=== PATIENT | female | born 1940 | race Caucasian/White ===

== ENCOUNTER → 2017-06-17 | Outpatient (CLI) | payer MEDICARE ==
[2017-06-17 11:02] LABS: Basophils % (A) 1 %; CH 30.4; CHCM 33.5; Eosinophils # (A) 0.1 k/uL (0-0.7); Eosinophils % (A) 2 %; HCT 45.5 % (34.0-46.0); HDW 2.89; HGB 14.6 gm/dL (11.4-16.0); Luc # (Auto) 0.08; Luc % (Auto) 2; Lymphocytes # (A) 1.7 k/uL (1.0-4.8); Lymphocytes % (A) 33 %; MCH 29.2 pg (25.0-35.0); MCV 91.1 fL (80.0-100.0); Mean Platelet Volume 6.9; Monocytes # (A) 0.3 k/uL (0-1.0); Monocytes % (A) 6 %; Neutrophils # (A) 2.9 k/uL (1.3-7.7); Neutrophils % (A) 57 %; RDW 13.6 % (11.5-15.5); WBC (Perox) 4.93
[2017-06-17 11:07] LABS: ALT 32 U/L (9-52); AST 24 U/L (14-36); Alkaline Phosphatase 143 U/L (38-126); Amylase 86 U/L (30-110); Anion Gap 12 mmol/L; Bilirubin, Delta 0.2 mg/dL (0.0-0.2); Blood Urea Nitrogen 20 mg/dL (7-17); Calcium 9.4 mg/dL (8.4-10.2); Carbon Dioxide 31 mmol/L (22-30); Chloride 100 mmol/L (98-107); Cholesterol 160 mg/dL (<200); Glucose 111 mg/dL (74-99); HDL Cholesterol 48 mg/dL (40-60); Non-African American GFR(MDRD) 54 (>60 ml/min/1.73 sqM); Potassium 3.4 mmol/L (3.5-5.1); Sodium 143 mmol/L (137-145); Total Bilirubin 0.6 mg/dL (0.2-1.3); Total Protein 7.2 g/dL (6.3-8.2)
[2017-06-17 14:14] LABS: Erythrocyte Sedimentation Rate 75 mm/hr (0-20)
== END | disposition home or self-care (01) ==
LOC: LABWHC1 10:26
PROVIDERS: ATTEND Physician Assistant
DX: Z00.00 Encounter for general adult medical examination without abnormal findings (principal); R10.9 Unspecified abdominal pain
CPT/HCPCS: 36415; 80053; 80061; 82150; 82248; 82306; 83690; 84443; 85025; 85652

== ENCOUNTER 2018-01-30 21:45 | Emergency (ER) | payer MEDICARE ==
[2018-01-30 22:31] LABS: Appearance,Urine Turbid (Clear); Bacteria,Urine Moderate /hpf; Bilirubin,Urine Negative (Negative); Blood,Urine Large (Negative); Color,Urine Dark Brown; Glucose,Urine (UA) 2+ (Negative); Ketones,Urine Trace (Negative); Leukocyte Esterase,Urine Large (Negative); Mucus,Urine Few /hpf; Nitrite,Urine Positive (Negative); Protein,Urine 3+ (Negative); RBC,Urine >182 /hpf (0-5); Squamous Epithelial Cell,Urine 13 /hpf (0-4); Urobilinogen,Urine <2.0 mg/dL (<2.0); WBC,Urine >182 /hpf (0-5)
--- NOTE | 2018-01-30 22:48 | ED ---
Female Urogenital HPI - General Chief complaint: Urogenital Stated complaint: Urogenital Time Seen by Provider: 01/30/18 22:12 Source: patient Mode of arrival: ambulatory Limitations: no limitations - History of Present Illness Initial comments: Patient is a 77-year-old female presenting for dysuria. She states that she started having burning with urination on January 26 and was prescribed Macrobid. She denies any abdominal pain or fevers/chills or nausea/vomiting/diarrhea. However, she started having more dysuria today and decided to come into the hospital for further evaluation. She states that she has been compliant with the Macrobid - Related Data Home Medications Medication Instructions Recorded Confirmed Amitriptyline HCl [Elavil] 75 mg PO HS 07/06/14 01/30/18 Bisoprolol-Hctz 10-6.25 mg [Ziac 2 tab PO DAILY 07/06/14 01/30/18 10-6.25 MG] Insulin Aspart [NovoLOG] 0 unit SQ DAILY PRN 07/06/14 01/30/18 Lansoprazole 30 mg PO DAILY 07/06/14 01/30/18 Insulin Glargine,Hum.rec.anlog 0 unit SQ DAILY PRN 11/15/15 01/30/18 [Lantus Solostar] Atorvastatin [Lipitor] 20 mg PO HS 01/30/18 01/30/18 Biotin 5,000 mcg PO DAILY 01/30/18 01/30/18 Calcium Carbonate/Vitamin D3 1 tab PO BID 01/30/18 01/30/18 [Calcium 600-Vit D3 400 Caplet] Cholecalciferol [Vitamin D3] 1,000 unit PO DAILY 01/30/18 01/30/18 Diphenoxylate HCl/Atropine 1 tab PO QID PRN 01/30/18 01/30/18 [Lomotil 2.5-0.025 mg Tablet] Fluticasone Nasal [place] [Flonase 1 - 2 spray EA NOSTRIL DAILY PRN 01/30/1801/30 Nasal [place]] Gabapentin [Neurontin] 100 mg PO DAILY 01/30/18 01/30/18 Multivitamins, Thera [Multivitamin 1 tab PO DAILY 01/30/18 01/30/18 (formulary)] Nitrofurantoin Monohyd/M-Cryst 100 mg PO Q12HR 01/30/18 01/30/18 [Macrobid] Olopatadine HCl [Patanol] 1 drop OP BID 01/30/18 01/30/18 Previous Rx's Medication Instructions Recorded Phenazopyridine [Pyridium] 200 mg PO TID 3 Days #10 tablet 01/30/18 Sulfamethox-Tmp 800-160Mg [Bactrim 1 tab PO Q12HR 7 Days #14 tab 01/30/18 DS 800-160 mg] Allergies Allergy/AdvReac Type Severity Reaction Status Date / Time No Known Allergies Allergy Verified 01/30/18 22:25 Review of Systems ROS Statement: Those systems with pertinent positive or pertinent negative responses have been documented in the HPI. Constitutional: Negative for chills, fatigue and fever. HENT: Negative for congestion. Respiratory: Negative for chest tightness, shortness of breath and wheezing. Negative for cough Cardiovascular: Negative for chest pain and palpitations. Gastrointestinal: Negative for abdominal pain. Negative for abdominal distention , diarrhea, nausea and vomiting. Genitourinary: Positive for dysuria. Musculoskeletal: Negative for back pain, neck pain and neck stiffness. Skin: Negative for color change. Neurological: Negative for dizziness, speech difficulty, weakness and light- headedness. Psychiatric/Behavioral: Negative for agitation and confusion. The patient is not nervous/anxious. ROS Other: All systems not noted in ROS Statement are negative. Past Medical History Past Medical History: Diabetes Mellitus, GERD/Reflux, Hyperlipidemia, Hypertension, Sleep Apnea/CPAP/BIPAP History of Any Multi-Drug Resistant Organisms: None Reported Past Surgical History: Bariatric Surgery Additional Past Surgical History / Comment(s): bariatric sleeve procedure, rt rotator cuff, tummy tuck Past Anesthesia/Blood Transfusion Reactions: Postoperative Nausea & Vomiting ( PONV) Smoking Status: Never smoker Past Alcohol Use History: None Reported Past Drug Use History: None Reported General Exam - General Exam Comments Initial Comments: Constitutional: Pt is oriented to person, place, and time. Pt appears well- developed and well-nourished. No distress. HENT: Head: Normocephalic and atraumatic. Eyes: EOM are normal. Neck: Normal range of motion. Neck supple. Cardiovascular: Normal rate, regular rhythm, S1 normal, S2 normal and normal heart sounds. Exam reveals no gallop and no friction rub. No murmur heard. Pulmonary/Chest: Effort normal and breath sounds normal. No tachypnea and no bradypnea. No respiratory distress. No wheezes or rales noted. Abdominal: Soft. Bowel sounds are normal. Pt exhibits no shifting dullness, no distension, no pulsatile liver, no fluid wave, no abdominal bruit and no ascites. There is no tenderness. There is no rigidity, no rebound, no guarding, no tenderness at McBurney's point and negative Morelos's sign. Musculoskeletal: Normal range of motion. Neurological: Pt is alert and oriented to person, place, and time. No cranial nerve deficit. Skin: Skin is warm and dry. No rash noted. Pt is not diaphoretic. No erythema. No pallor. Psychiatric: Pt has a normal mood and affect. Pt behavior is normal. Thought content normal. Limitations: no limitations Course Vital Signs 01/30/18 22:05 Temperature 98.5 F Pulse Rate 90 Respiratory 16 Rate Blood Pressure 140/84 O2 Sat by Pulse 94 L Oximetry Medical Decision Making - Medical Decision Making Laboratory studies showed that there is no evidence of leukocytosis and electrolytes revealed that potassium was low at 3.0 and therefore was replaced orally. Urinalysis was consistent with a urinary tract infection and therefore the patient was given 1000 mg of Rocephin. Additionally, patient was given a 7 day course of Bactrim as well as Pyridium. Patient was advised to follow-up with her PCP in 1-2 days which she was agreeable to. Labs also showed the renal function was preserved. - Lab Data Result diagrams: 01/30/18 23:00 01/30/18 23:00 Lab Results 01/30/18 01/30/18 01/30/18 Range/Units 22:17 23:00 23:00 WBC 9.2 (3.8-10.6) k/uL RBC 5.11 (3.80-5.40) m/uL Hgb 14.3 (11.4-16.0) gm/dL Hct 42.8 (34.0-46.0) % MCV 83.8 (80.0-100.0) fL MCH 27.9 (25.0-35.0) pg MCHC 33.3 (31.0-37.0) g/dL RDW 13.7 (11.5-15.5) % Plt Count 248 (150-450) k/uL Neutrophils % 73 % Lymphocytes % 18 % Monocytes % 5 % Eosinophils % 3 % Basophils % 0 % Neutrophils # 6.7 (1.3-7.7) k/uL Lymphocytes # 1.6 (1.0-4.8) k/uL Monocytes # 0.5 (0-1.0) k/uL Eosinophils # 0.2 (0-0.7) k/uL Basophils # 0.0 (0-0.2) k/uL Sodium 143 (137-145) mmol/L Potassium 3.0 L* (3.5-5.1) mmol/L Chloride 98 (98-107) mmol/L Carbon Dioxide 31 H (22-30) mmol/L Anion Gap 14 mmol/L BUN 14 (7-17) mg/dL Creatinine 0.91 (0.52-1.04) mg/dL Est GFR (CKD-EPI)AfAm 71 (>60 ml/min/1.73 sqM) Est GFR (CKD-EPI)NonAf 61 (>60 ml/min/1.73 sqM) Glucose 114 H (74-99) mg/dL Calcium 8.9 (8.4-10.2) mg/dL Urine Color Dark Brown Urine Appearance Turbid H (Clear) Urine pH 6.0 (5.0-8.0) Ur Specific [place] 1.024 (1.001-1.035) Urine Protein 3+ H (Negative) Urine Glucose (UA) 2+ H (Negative) Urine Ketones Trace H (Negative) Urine Blood Large H (Negative) Urine Nitrite Positive H (Negative) Urine Bilirubin Negative (Negative) Urine Urobilinogen <2.0 (<2.0) mg/dL Ur Leukocyte Esterase Large H (Negative) Urine RBC >182 H (0-5) /hpf Urine WBC >182 H (0-5) /hpf Urine WBC Clumps Many H (None) /hpf Ur Squamous Epith Cells 13 H (0-4) /hpf Urine Bacteria Moderate H (None) /hpf Urine Mucus Few H (None) /hpf Disposition Clinical Impression: Urinary tract infection, Hematuria Disposition: HOME SELF-CARE Condition: Good Instructions: Urinary Tract Infection in Women (ED) Prescriptions: Phenazopyridine [Pyridium] 200 mg PO TID 3 Days #10 tablet Sulfamethox-Tmp 800-160Mg [Bactrim DS 800-160 mg] 1 tab PO Q12HR 7 Days #14 tab Is patient prescribed a controlled substance at d/c from ED?: No Referrals: August Harrison MD [Primary Care Provider] - 1-2 days Time of Disposition: 23:57
[2018-01-30] MEDS ORDERED: cefTRIAXone IN SWFI 1,000 MG/10 ML SYRINGE IVP ONE (23:00)
[2018-01-30 23:07] LABS: Specific Gravity,Urine 1.024 (1.001-1.035)
[2018-01-30 23:13] LABS: Basophils % (A) 0 %; Eosinophils # (A) 0.2 k/uL (0-0.7); Eosinophils % (A) 3 %; HCT 42.8 % (34.0-46.0); HGB 14.3 gm/dL (11.4-16.0); Lymphocytes # (A) 1.6 k/uL (1.0-4.8); Lymphocytes % (A) 18 %; MCH 27.9 pg (25.0-35.0); MCHC 33.3 g/dL (31.0-37.0); MCV 83.8 fL (80.0-100.0); Mean Platelet Volume 6.3; Monocytes # (A) 0.5 k/uL (0-1.0); Monocytes % (A) 5 %; Neutrophils # (A) 6.7 k/uL (1.3-7.7); Neutrophils % (A) 73 %; Platelet Count 248 k/uL (150-450); RBC 5.11 m/uL (3.80-5.40); RDW 13.7 % (11.5-15.5); WBC 9.2 k/uL (3.8-10.6)
[2018-01-30 23:21] LABS: Calcium 8.9 mg/dL (8.4-10.2)
[2018-01-30] MEDS ORDERED: POTASSIUM CHLORIDE ER 20 MEQ TAB.ER PO STA (23:35)
[2018-01-30] MEDS ORDERED: KETOROLAC 30 MG/ML 1 ML VIAL IVP STA (23:51)
[2018-01-30] MEDS ORDERED: PHENAZOPYRIDINE 200 MG TAB PO STA (23:51)
[2018-01-31 00:23] VITALS: BP 170/88; PULSE 70; RESP 18; TEMP 98.8
== END 2018-01-31 00:23 | disposition home or self-care (01) ==
LOC: EC 21:45
DX: N39.0 Urinary tract infection, site not specified (principal); E87.6 Hypokalemia; E11.9 Type 2 diabetes mellitus without complications; K21.9 Gastro-esophageal reflux disease without esophagitis; E78.5 Hyperlipidemia, unspecified; I10 Essential (primary) hypertension; G47.30 Sleep apnea, unspecified; Z99.89 Dependence on other enabling machines and devices; Z79.4 Long term (current) use of insulin; Z79.899 Other long term (current) drug therapy; Z53.8 Procedure and treatment not carried out for other reasons
CPT/HCPCS: 36415; 80048; 85025; 81001; 87086; 99283; 96374; 96375; J0696; J1885; 87077; 87186

== ENCOUNTER → 2018-03-03 | Outpatient (CLI) | payer MEDICARE ==
--- NOTE | 2018-03-04 11:19 | MM ---
Reason for exam: screening (asymptomatic). Last mammogram was performed 2 years and 5 months ago. History: Patient is postmenopausal. Family history of breast cancer in paternal aunt at age 60. Took estrogen for 21 years beginning at age 45. Took progesterone for 21 years beginning at age 45. Physical Findings: A clinical breast exam by your physician is recommended on an annual basis and results should be correlated with mammographic findings. MG 3D Screening Mammo W/Cad Bilateral CC and MLO view(s) were taken. Prior study comparison: October 05, 2015, bilateral MG 3d diag mammo w/cad [facility]. July 28, 2014, bilateral MG diagnostic mammo w CAD [facility]. There are scattered fibroglandular densities. Finding: There are typically benign round, regional calcifications in the anterior position of the left breast. There is a chronic nodularity in the right upper aspect. There is no discrete abnormality. ASSESSMENT: Benign, BI-RAD 2 RECOMMENDATION: Routine screening mammogram of both breasts in 1 year.
== END | disposition home or self-care (01) ==
LOC: RADMAMWWP 09:46
PROVIDERS: ATTEND Family Medicine
DX: Z12.31 Encounter for screening mammogram for malignant neoplasm of breast (principal)
CPT/HCPCS: 77063; 77067

== ENCOUNTER → 2019-01-09 | Outpatient (CLI) | payer MEDICARE ==
--- NOTE | 2019-01-09 18:54 | MR ---
EXAMINATION TYPE: MR brain wo con DATE OF EXAM: 01/09/2019 COMPARISON: NONE HISTORY: Vestibular neuronitis, bilateral TECHNIQUE: Multiplanar, multisequence images of the brain and brainstem is performed without contrast. FINDINGS: Diffusion weighted images demonstrate no evidence of a recent infarct or other diffusion ab normality. There is no extra-axial fluid collection. The ventricular system and cisternal spaces are symmetrically prominent compatible with mild degree age-related volume loss. Scattered T2/FLAIR hype rintense punctate foci are seen within the subcortical and periventricular white matter, mild burden. Midline structures demonstrate normal morphology. No gross masses seen at the cerebellar pontine ang les. The craniocervical junction appears within normal limits. Post contrast images demonstrate no a bnormal enhancement. The dural venous sinuses appear patent. The visualized sinuses demonstrate mild mucosal thickening in the ethmoid sinuses and scant fluid in the sphenoid sinus. Scant mucosal thicke diane is also seen within the posterior left mastoid air cells. Remaining paranasal sinuses and mastoi d air cells are well aerated. IMPRESSION: 1. No acute infarct, midline shift or mass effect. Given the patient's symptoms MR IAC with con is re commended. No gross evidence of cerebellar pontine angle mass. 2. Mild burden nonspecific white matter change, likely on the basis of chronic microangiopathy. 3. Mild paranasal sinus disease.
== END ==
LOC: RADMRIMAIN 14:02
PROVIDERS: ATTEND Family Medicine
DX: R90.89 Other abnormal findings on diagnostic imaging of central nervous system (principal)
CPT/HCPCS: 70551

== ENCOUNTER → 2019-05-06 | Outpatient (CLI) | payer MEDICARE ==
--- NOTE | 2019-05-06 14:25 | MM ---
Reason for exam: screening (asymptomatic). Last mammogram was performed 1 year and 2 months ago. History: Patient is postmenopausal. Family history of breast cancer in paternal aunt at age 60 and breast cancer in sister. Took estrogen for 21 years beginning at age 45. Took progesterone for 21 years beginning at age 45. Physical Findings: A clinical breast exam by your physician is recommended on an annual basis and results should be correlated with mammographic findings. MG 3D Screening Mammo W/Cad Bilateral CC and MLO view(s) were taken. Prior study comparison: March 03, 2018, bilateral MG 3d screening mammo w/cad. October 05, 2015, bilateral MG 3d diag mammo w/cad [facility]. The breast tissue is heterogeneously dense. This may lower the sensitivity of mammography. There are benign appearing round calcifications in the left breast. There is no discrete abnormality. ASSESSMENT: Benign, BI-RAD 2 RECOMMENDATION: Routine screening mammogram of both breasts in 1 year.
== END | disposition home or self-care (01) ==
LOC: RADMAMWWP 10:48
PROVIDERS: ATTEND Family Medicine
DX: Z12.31 Encounter for screening mammogram for malignant neoplasm of breast (principal)
CPT/HCPCS: 77063; 77067

== ENCOUNTER → 2019-11-05 | Outpatient (CLI) | payer MEDICARE ==
[2019-11-05 23:50] LABS: African American GFR (CKD) 62.5 (60.0-200.0); Anion Gap 9.1 mmol/L (4.00-12.00); Calcium 9.6 mg/dL (8.7-10.3); Carbon Dioxide 33.9 mmol/L (21.6-31.8); Chol/HDL Ratio 2.83; LDL Cholesterol,Calculated 53.6 mg/dL (0.0-131.0); Non-African American GFR(CKD) 53.9 (60.0-200.0); Potassium 3.4 mmol/L (3.5-5.5); VLDL Calculation 41.4 mg/dL (5.00-40.00)
== END | disposition home or self-care (01) ==
LOC: LABWHC1 15:53
PROVIDERS: ATTEND Internal Medicine
DX: E11.65 Type 2 diabetes mellitus with hyperglycemia (principal)
CPT/HCPCS: 36415; 80048; 80061

== ENCOUNTER → 2020-01-28 | Outpatient (CLI) | payer MEDICARE ==
--- NOTE | 2020-01-28 10:37 | MR ---
EXAMINATION TYPE: MR shoulder LT wo con DATE OF EXAM: 01/28/2020 COMPARISON: 01/12/2020 HISTORY: L shoulder pain TECHNIQUE: Multiplanar, multisequence imaging of the left shoulder is performed without contrast. FINDINGS: Rotator Cuff: There is a complete through thickness tear of the supraspinatus tendon with retraction near the level the AC joint. There is a partial through thickness tear involving the anterior fibers at the insertion of the infraspinatus tendon measuring approximately 4 mm. Subscapularis tendon appears intact. Acromioclavicular Joint: There is hypertrophic arthropathy of the AC joint. This does result in some mass effect upon the supraspinatus muscle and musculotendinous junction. Glenohumeral Joint: There is a tiny joint effusion. Motion artifact limits assessment of the glenohum eral ligaments. Labrum: Artifact limits assessment of the labrum. There are grossly appear to be intact by non arthro gram technique. Biceps Tendon: The long head of biceps is in normal location within bicipital groove. In the intracap sular portion biceps tendon demonstrates areas of increased signal likely in the basis of tendinosis. Bone marrow signal: No focal abnormal marrow signal is appreciated. Other: There is muscular atrophy correlate clinically. IMPRESSION: Exam limited by motion artifact. 1. Complete through thickness tear of the supraspinatus tendon with retraction to the level the AC marco antonio int. 2. Partial through thickness tear insertion anterior fibers infraspinatus tendon with no retraction. 3. AC joint arthropathy.
== END | disposition home or self-care (01) ==
LOC: RADMRIMAIN 08:56
PROVIDERS: ATTEND Orthopaedic Surgery
DX: M75.122 Complete rotator cuff tear or rupture of left shoulder, not specified as traumatic (principal); S46.812A Strain of other muscles, fascia and tendons at shoulder and upper arm level, left arm, initial encounter; M19.012 Primary osteoarthritis, left shoulder

== ENCOUNTER 2020-10-18 07:24 | Emergency (ER) | payer MEDICARE ==
--- NOTE | 2020-10-18 07:45 | ED ---
General Adult HPI - General Chief complaint: Abdominal Pain Stated complaint: L Flank Pain Time Seen by Provider: 10/18/20 07:27 Source: patient Mode of arrival: ambulatory Limitations: no limitations - History of Present Illness Initial comments: Dictation was produced using [employer] dictation software. please excuse any grammatical, word or spelling errors. This patient was cared for during a federal and state declared state of emergency secondary to Covid 19 Chief Complaint: 80-year-old female presents with left abdominal pain History of Present Illness: Is 80-year-old female she has past medical history of bariatric surgery, diabetes, dyslipidemia hypertension. Patient states that over the last couple days she's been having left lower abdominal pain. Patient has a history of diverticulitis. She states that the pain is mild. She states it's episodic in nature lasting from 1-2 hours. Should have maybe 1 or 2 episodes a day. She is never experienced pain like this before. Denies any nausea vomiting. No diarrhea. No blood in the stool. Has any fever, chills or night sweats. Patient is here in emergency department because they are going to a trip in [place] and she wanted to make sure that she was medically okay before she left for vacation. She denies any constitutional symptoms. Denies any exacerbating or mitigating factors. No numbness and paresthesias to the lower extremities. The ROS documented in this emergency department record has been reviewed and confirmed by me. Those systems with pertinent positive or negative responses have been documented in the HPI. All other systems are other negative and/or noncontributory. PHYSICAL EXAM: General Impression: Alert and oriented x3, not in acute distress HEENT: Normocephalic atraumatic, extra-ocular movements intact, pupils equal and reactive to light bilaterally, mucous membranes moist. Cardiovascular: Heart regular rate and rhythm Chest: Able to complete full sentences, no retractions, no tachypnea Abdomen: abdomen soft, non-tender, non-distended, no organomegaly Musculoskeletal: Pulses present and equal in all extremities, no peripheral edema Motor: no focal deficits noted Neurological: CN II-XII grossly intact, no focal motor or sensory deficits noted Skin: Intact with no visualized rashes Psych: Normal affect and mood ED course: 80-year-old female presents with episodic mild left abdominal pain for the last 2-3 days. Signs upon arrival are within acceptable limits. Patient has history of bariatric surgery. Chart review was performed. She had a computed tomography scan of the abdomen and pelvis performed in 2017. There is evidence of a possible left kidney cyst and may be some subcutaneous inflammation over the surgical site at that time. Physical examination is benign. Patient's HPI and physical examination does not suggest a surgical abdomen. Laboratory evaluation obtained. CBC, metabolic panel is unremarkable. Urinalysis shows 20 white blood cells. Abdominal x-ray shows mild stool burden. Laboratory results and imaging tests were discussed with patient. She did admit that she has had some mild urinary symptoms including urinary frequency, urgency and dysuria. A chin symptoms likely secondary to cystitis could also be possible that her symptoms are secondary to constipation. She's been having regular bowel movements and symptoms are more likely secondary to cystitis. Patient had a UTI performed back in 2018 positive for Klebsiella pneumonia. It had broad sensitivity. Patient will be prescribed Keflex. Patient is agreeable to plan. She is told to expect a phone call if for some reason her sensitivities require she would need to have her antibiotics change. - Related Data Home Medications Medication Instructions Recorded Confirmed Amitriptyline HCl [Elavil] 75 mg PO HS 07/06/14 01/30/18 Bisoprolol-Hctz 10-6.25 mg [Ziac 2 tab PO DAILY 07/06/14 01/30/18 10-6.25 MG] INSULIN ASPART (NovoLOG) [NovoLOG] 0 unit SQ DAILY PRN 07/06/14 01/30/18 Lansoprazole 30 mg PO DAILY 07/06/14 01/30/18 Insulin Glargine,Hum.rec.anlog 0 unit SQ DAILY PRN 11/15/15 01/30/18 [Lantus Solostar] Atorvastatin [Lipitor] 20 mg PO HS 01/30/18 01/30/18 Biotin 5,000 mcg PO DAILY 01/30/18 01/30/18 Calcium Carbonate/Vitamin D3 1 tab PO BID 01/30/18 01/30/18 [Calcium 600-Vit D3 400 Caplet] Cholecalciferol [Vitamin D3] 1,000 unit PO DAILY 01/30/18 01/30/18 Diphenoxylate HCl/Atropine 1 tab PO QID PRN 01/30/18 01/30/18 [Lomotil 2.5-0.025 mg Tablet] Fluticasone Nasal [place] [Flonase 1 - 2 spray EA NOSTRIL DAILY PRN 01/30/18 01/30/18 Nasal [place]] Gabapentin [Neurontin] 100 mg PO DAILY 01/30/18 01/30/18 Multivitamins, Thera [Multivitamin 1 tab PO DAILY 01/30/18 01/30/18 (formulary)] Nitrofurantoin Monohyd/M-Cryst 100 mg PO Q12HR 01/30/18 01/30/18 [Macrobid] Olopatadine HCl [Patanol] 1 drop OP BID 01/30/18 01/30/18 Previous Rx's Medication Instructions Recorded Phenazopyridine [Pyridium] 200 mg PO TID 3 Days #10 tablet 01/30/18 Sulfamethox-Tmp 800-160Mg [Bactrim 1 tab PO Q12HR 7 Days #14 tab 01/30/18 DS 800-160 mg] Cephalexin [Keflex] 500 mg PO Q6HR 7 Days #28 cap 10/18/20 Allergies Allergy/AdvReac Type Severity Reaction Status Date / Time No Known Allergies Allergy Verified 10/18/20 07:29 Review of Systems ROS Statement: Those systems with pertinent positive or pertinent negative responses have been documented in the HPI. ROS Other: All systems not noted in ROS Statement are negative. Past Medical History Past Medical History: Diabetes Mellitus, GERD/Reflux, Hyperlipidemia, Hypertension, Sleep Apnea/CPAP/BIPAP History of Any Multi-Drug Resistant Organisms: None Reported Past Surgical History: Bariatric Surgery Additional Past Surgical History / Comment(s): bariatric sleeve procedure, rt rotator cuff, tummy tuck Past Anesthesia/Blood Transfusion Reactions: Postoperative Nausea & Vomiting (PONV) Smoking Status: Never smoker Past Alcohol Use History: None Reported Past Drug Use History: None Reported General Exam Limitations: no limitations Course Vital Signs 10/18/20 07:26 Temperature 97.7 F Pulse Rate 107 H Respiratory 18 Rate Blood Pressure 177/104 O2 Sat by Pulse 94 L Oximetry Medical Decision Making - Lab Data Result diagrams: 10/18/20 07:58 10/18/20 07:58 Lab Results 10/18/20 10/18/20 10/18/20 Range/Units 07:36 07:58 07:58 WBC 7.2 (3.8-10.6) k/uL RBC 4.97 (3.80-5.40) m/uL Hgb 14.3 (11.4-16.0) gm/dL Hct 42.3 (34.0-46.0) % MCV 85.1 (80.0-100.0) fL MCH 28.7 (25.0-35.0) pg MCHC 33.8 (31.0-37.0) g/dL RDW 12.8 (11.5-15.5) % Plt Count 239 (150-450) k/uL MPV 6.7 Neutrophils % 70 % Lymphocytes % 20 % Monocytes % 7 % Eosinophils % 2 % Basophils % 1 % Neutrophils # 5.1 (1.3-7.7) k/uL Lymphocytes # 1.4 (1.0-4.8) k/uL Monocytes # 0.5 (0-1.0) k/uL Eosinophils # 0.1 (0-0.7) k/uL Basophils # 0.0 (0-0.2) k/uL Sodium 139 (137-145) mmol/L Potassium 3.4 L (3.5-5.1) mmol/L Chloride 98 (98-107) mmol/L Carbon Dioxide 32 H (22-30) mmol/L Anion Gap 9 mmol/L BUN 17 (7-17) mg/dL Creatinine 0.87 (0.52-1.04) mg/dL Est GFR (CKD-EPI)AfAm 73 (>60 ml/min/1.73 sqM) Est GFR (CKD-EPI)NonAf 64 (>60 ml/min/1.73 sqM) Glucose 150 H (74-99) mg/dL Calcium 9.0 (8.4-10.2) mg/dL Total Bilirubin 0.7 (0.2-1.3) mg/dL AST 19 (14-36) U/L ALT 13 (4-34) U/L Alkaline Phosphatase 83 (38-126) U/L Total Protein 7.0 (6.3-8.2) g/dL Albumin 4.1 (3.5-5.0) g/dL Lipase 50 (23-300) U/L Urine Color Yellow Urine Appearance Cloudy H (Clear) Urine pH 5.5 (5.0-8.0) Ur Specific [place] 1.019 (1.001-1.035) Urine Protein Negative (Negative) Urine Glucose (UA) Negative (Negative) Urine Ketones Negative (Negative) Urine Blood Negative (Negative) Urine Nitrite Negative (Negative) Urine Bilirubin Negative (Negative) Urine Urobilinogen <2.0 (<2.0) mg/dL Ur Leukocyte Esterase Moderate H (Negative) Urine RBC 2 (0-5) /hpf Urine WBC 20 H (0-5) /hpf Ur Squamous Epith Cells <1 (0-4) /hpf Urine Bacteria Many H (None) /hpf Hyaline Casts 1 (0-2) /lpf Urine Mucus Few H (None) /hpf Disposition Clinical Impression: Cystitis, Pelvic pain Disposition: HOME SELF-CARE Condition: Fair Instructions (If sedation given, give patient instructions): Urinary Tract Infection in Women (ED) Prescriptions: Cephalexin [Keflex] 500 mg PO Q6HR 7 Days #28 cap Is patient prescribed a controlled substance at d/c from ED?: No Referrals: August Harrison MD [Primary Care Provider] - 1-2 days Time of Disposition: 08:34
[2020-10-18 07:54] LABS: Appearance,Urine Cloudy (Clear); Bacteria,Urine Many /hpf; Bilirubin,Urine Negative (Negative); Blood,Urine Negative (Negative); Color,Urine Yellow; Glucose,Urine (UA) Negative (Negative); Hyaline Casts,Urine 1 /lpf (0-2); Ketones,Urine Negative (Negative); Leukocyte Esterase,Urine Moderate (Negative); Mucus,Urine Few /hpf; Nitrite,Urine Negative (Negative); PH, Urine 5.5 (5.0-8.0); Protein,Urine Negative (Negative); RBC,Urine 2 /hpf (0-5); Specific Gravity,Urine 1.019 (1.001-1.035); Squamous Epithelial Cell,Urine <1 /hpf (0-4); Urobilinogen,Urine <2.0 mg/dL (<2.0); WBC,Urine 20 /hpf (0-5)
[2020-10-18 08:08] LABS: Basophils % (A) 1 %; Eosinophils # (A) 0.1 k/uL (0-0.7); Eosinophils % (A) 2 %; HCT 42.3 % (34.0-46.0); HGB 14.3 gm/dL (11.4-16.0); Lymphocytes # (A) 1.4 k/uL (1.0-4.8); Lymphocytes % (A) 20 %; MCH 28.7 pg (25.0-35.0); MCHC 33.8 g/dL (31.0-37.0); MCV 85.1 fL (80.0-100.0); Mean Platelet Volume 6.7; Monocytes # (A) 0.5 k/uL (0-1.0); Monocytes % (A) 7 %; Neutrophils # (A) 5.1 k/uL (1.3-7.7); Neutrophils % (A) 70 %; Platelet Count 239 k/uL (150-450); RBC 4.97 m/uL (3.80-5.40); RDW 12.8 % (11.5-15.5); WBC 7.2 k/uL (3.8-10.6)
[2020-10-18 08:17] LABS: Albumin 4.1 g/dL (3.5-5.0); Potassium 3.4 mmol/L (3.5-5.1); Total Bilirubin 0.7 mg/dL (0.2-1.3)
--- NOTE | 2020-10-18 08:27 | XR ---
EXAMINATION TYPE: XR abdomen 1V DATE OF EXAM: 10/18/2020 Comparison: None Clinical History: 80-year-old female abdominal pain Findings: Lung bases are clear. No evidence for free intraperitoneal air. Cholecystectomy clips. No dilated small bowel or air-fluid levels. Scattered mild to moderate stool. No suspicious calcifications are clearly identified. Multiple pelvic phleboliths. Degenerative changes lower lumbar spine. IMPRESSION: Mild to moderate stool burden. No evidence for free air or bowel obstruction. Previous cholecystectom y.
[2020-10-18 08:42] VITALS: BP 159/89; PULSE 91; RESP 16; TEMP 98.1
== END 2020-10-18 08:40 | disposition home or self-care (01) ==
LOC: EC 07:24
DX: N30.90 Cystitis, unspecified without hematuria (principal); R10.2 Pelvic and perineal pain; I10 Essential (primary) hypertension; E11.9 Type 2 diabetes mellitus without complications; G47.30 Sleep apnea, unspecified; E78.5 Hyperlipidemia, unspecified; K21.9 Gastro-esophageal reflux disease without esophagitis; Z79.899 Other long term (current) drug therapy; Z98.84 Bariatric surgery status; Z99.89 Dependence on other enabling machines and devices; Z87.440 Personal history of urinary (tract) infections
CPT/HCPCS: 36415; 74018; 80053; 81001; 83690; 85025; 87086; 99284

== ENCOUNTER 2021-05-26 20:59 | Emergency (ER) | payer MEDICARE ==
[2021-05-26 21:27] VITALS: RESP 18
[2021-05-26 23:18] LABS: Appearance,Urine Turbid (Clear); Bacteria,Urine Many /hpf; Bilirubin,Urine Negative (Negative); Blood,Urine Large (Negative); Color,Urine Red; Glucose,Urine (UA) Negative (Negative); Hyaline Casts,Urine 96 /lpf (0-2); Ketones,Urine Negative (Negative); Leukocyte Esterase,Urine Large (Negative); Mucus,Urine Occasional /hpf; Nitrite,Urine Negative (Negative); Protein,Urine 3+ (Negative); RBC,Urine >182 /hpf (0-5); Squamous Epithelial Cell,Urine 11 /hpf (0-4); Urobilinogen,Urine <2.0 mg/dL (<2.0); WBC,Urine >182 /hpf (0-5)
[2021-05-26 23:46] LABS: Specific Gravity,Urine 1.027 (1.001-1.035)
[2021-05-26] MEDS ORDERED: cefTRIAXone 1,000 MG VIAL (IM USE) IM STA (23:52)
--- NOTE | 2021-05-26 23:53 | ED ---
Female Urogenital HPI - General Chief complaint: Urogenital Stated complaint: UTI Time Seen by Provider: 05/26/21 21:43 Source: patient, RN notes reviewed, old records reviewed Mode of arrival: ambulatory Limitations: no limitations - History of Present Illness Initial comments: Patient is an 81-year-old female presenting to the emergency Department with complaints of having a UTI. Patient states she was treated about 2 weeks ago for UTI, she felt better for a couple days and then her symptoms returned. She's been having dysuria, urgency and frequency over the past 2 days. No fevers or chills, she has had some suprapubic pressure but no abdominal pain, no back pain. She does not remember the name of the antibiotics she was just on, it could be Bactrim. She has no chest pain or shortness of breath, she has no further complaints today. Her vital signs are stable upon arrival. - Related Data Home Medications Medication Instructions Recorded Confirmed Amitriptyline HCl [Elavil] 75 mg PO HS 07/06/14 01/30/18 Bisoprolol-Hctz 10-6.25 mg [Ziac 2 tab PO DAILY 07/06/14 01/30/18 10-6.25 MG] INSULIN ASPART (NovoLOG) [NovoLOG] 0 unit SQ DAILY PRN 07/06/14 01/30/18 Lansoprazole 30 mg PO DAILY 07/06/14 01/30/18 Insulin Glargine,Hum.rec.anlog 0 unit SQ DAILY PRN 11/15/15 01/30/18 [Lantus Solostar] Atorvastatin [Lipitor] 20 mg PO HS 01/30/18 01/30/18 Biotin [Biotin Disolve] 5,000 mcg PO DAILY 01/30/18 01/30/18 Calcium Carbonate/Vitamin D3 1 tab PO BID 01/30/18 01/30/18 [Calcium 600-Vit D3 400 Caplet] Cholecalciferol [Vitamin D3] 1,000 unit PO DAILY 01/30/18 01/30/18 Diphenoxylate HCl/Atropine 1 tab PO QID PRN 01/30/18 01/30/18 [Lomotil 2.5-0.025 mg Tablet] Fluticasone Nasal [place] [Flonase 1 - 2 spray EA NOSTRIL DAILY PRN 01/30/18 01/30/18 Nasal [place]] Gabapentin [Neurontin] 100 mg PO DAILY 01/30/18 01/30/18 Multivitamins, Thera [Multivitamin 1 tab PO DAILY 01/30/18 01/30/18 (formulary)] Nitrofurantoin Monohyd/M-Cryst 100 mg PO Q12HR 01/30/18 01/30/18 [Macrobid] Olopatadine HCl [Patanol] 1 drop OP BID 01/30/18 01/30/18 Previous Rx's Medication Instructions Recorded Phenazopyridine [Pyridium] 200 mg PO TID 3 Days #10 tablet 01/30/18 Sulfamethox-Tmp 800-160Mg [Bactrim 1 tab PO Q12HR 7 Days #14 tab 01/30/18 DS 800-160 mg] Cephalexin [Keflex] 500 mg PO Q6HR 7 Days #28 cap 10/18/20 Cephalexin [Keflex] 500 mg PO Q6HR 7 Days #28 cap 05/26/21 Allergies Allergy/AdvReac Type Severity Reaction Status Date / Time No Known Allergies Allergy Verified 05/26/21 21:27 Review of Systems ROS Statement: Those systems with pertinent positive or pertinent negative responses have been documented in the HPI. ROS Other: All systems not noted in ROS Statement are negative. Past Medical History Past Medical History: Diabetes Mellitus, GERD/Reflux, Hyperlipidemia, Hypertension, Sleep Apnea/CPAP/BIPAP History of Any Multi-Drug Resistant Organisms: None Reported Past Surgical History: Bariatric Surgery Additional Past Surgical History / Comment(s): bariatric sleeve procedure, rt rotator cuff, tummy tuck Past Anesthesia/Blood Transfusion Reactions: Postoperative Nausea & Vomiting (PONV) Smoking Status: Never smoker Past Alcohol Use History: None Reported Past Drug Use History: None Reported General Exam - General Exam Comments Initial Comments: GENERAL: Patient is well-developed and well-nourished. Patient is nontoxic and in no acute distress. HEAD: Atraumatic, normocephalic. EYES: Pupils equal round and reactive to light, extraocular movements intact, sclera anicteric, conjunctiva are normal. Eyelids were unremarkable. ENT: Moist mucous membranes. NECK: Normal range of motion, supple without lymphadenopathy or JVD. LUNGS: Unlabored respirations. Breath sounds clear to auscultation bilaterally and equal. No wheezes rales or rhonchi. HEART: Regular rate and rhythm without murmurs, rubs or gallops. ABDOMEN: Soft, nontender, normoactive bowel sounds. No guarding, no rebound. No masses appreciated. : Deferred MUSCULOSKELETAL: Normal extremities with adequate strength and normal range of motion, no pitting or edema. No clubbing or cyanosis. NEUROLOGICAL: Patient is alert and oriented x 3. SKIN: Warm, Dry, normal turgor, no rashes or lesions noted. Limitations: no limitations Course Vital Signs 05/26/21 05/27/21 21:23 00:19 Temperature 98.6 F 98.2 F Pulse Rate 85 78 Respiratory 18 18 Rate Blood Pressure 158/75 176/92 O2 Sat by Pulse 95 94 L Oximetry Medical Decision Making - Medical Decision Making Patient is an 81-year-old female here with concerns for UTI for the past 2 days. She has dysuria, urgency and frequency. She was treated 2 weeks ago for UTI, does not remember the name of the antibiotic, she thinks was Bactrim. Her vitals are stable. No alarming symptoms, no fevers. Urine shows many bacteria, WBCs and a BB C clumps. Patient was given 1 g Rocephin here in the ER and started on Keflex. Culture is pending. Patient can take Tylenol or Motrin for any discomfort, Pyridium. She is agreeable to this plan of care and stable for discharge. - Lab Data Lab Results 05/26/21 Range/Units 22:14 Urine Color Red Urine Appearance Turbid H (Clear) Urine pH 6.0 (5.0-8.0) Ur Specific [place] 1.027 (1.001-1.035) Urine Protein 3+ H (Negative) Urine Glucose (UA) Negative (Negative) Urine Ketones Negative (Negative) Urine Blood Large H (Negative) Urine Nitrite Negative (Negative) Urine Bilirubin Negative (Negative) Urine Urobilinogen <2.0 (<2.0) mg/dL Ur Leukocyte Esterase Large H (Negative) Urine RBC >182 H (0-5) /hpf Urine WBC >182 H (0-5) /hpf Urine WBC Clumps Few H (None) /hpf Ur Squamous Epith Cells 11 H (0-4) /hpf Urine Bacteria Many H (None) /hpf Hyaline Casts 96 H (0-2) /lpf Urine Mucus Occasional H (None) /hpf Disposition Clinical Impression: Urinary tract infection Disposition: HOME SELF-CARE Condition: Stable Instructions (If sedation given, give patient instructions): Urinary Tract Infection in Women (ED) Additional Instructions: Please return to the Emergency Department if symptoms worsen or any other concerns. Take antibiotic as prescribed. Finish entire course. May take Azo for burning sensation. Follow-up with your family doctor. Prescriptions: Cephalexin [Keflex] 500 mg PO Q6HR 7 Days #28 cap Is patient prescribed a controlled substance at d/c from ED?: No Referrals: August Harrison MD [Primary Care Provider] - 1-2 days Time of Disposition: 23:53
[2021-05-27 00:32] VITALS: BP 176/92; PULSE 78; TEMP 98.2
== END 2021-05-27 00:30 | disposition home or self-care (01) ==
LOC: EC 20:59
DX: N39.0 Urinary tract infection, site not specified (principal); E11.9 Type 2 diabetes mellitus without complications; E78.5 Hyperlipidemia, unspecified; I10 Essential (primary) hypertension; K21.9 Gastro-esophageal reflux disease without esophagitis; G47.30 Sleep apnea, unspecified; Z79.4 Long term (current) use of insulin
CPT/HCPCS: 81001; 87086; 99283; 96372; J0696

== ENCOUNTER 2022-11-15 00:20 | Inpatient (IN) | payer MEDICARE ==
[2022-11-15] MEDS ORDERED: SODIUM CHLORIDE 0.9% 1,000 ML IV ONE (00:41)
[2022-11-15] MEDS ORDERED: DIPH,PERTUS(ACELL)TETVAC-LF 0.5 ML VIAL IM ONE (00:44)
[2022-11-15 01:23] LABS: Basophils % (A) 0 %; Eosinophils # (A) 0.1 k/uL (0-0.7); Eosinophils % (A) 1 %; HCT 37.6 % (34.0-46.0); Lymphocytes % (A) 17 %; MCH 28.4 pg (25.0-35.0); MCV 88.5 fL (80.0-100.0); Mean Platelet Volume 7.1; Monocytes # (A) 0.2 k/uL (0-1.0); Monocytes % (A) 4 %; Neutrophils # (A) 4.1 k/uL (1.3-7.7); Neutrophils % (A) 76 %; Platelet Count 257 k/uL (150-450); RBC 4.25 m/uL (3.80-5.40); RDW 12.8 % (11.5-15.5); WBC 5.4 k/uL (3.8-10.6)
[2022-11-15 01:30] LABS: Albumin 3.6 g/dL (3.5-5.0); Calcium 8.2 mg/dL (8.4-10.2); Potassium 3.3 mmol/L (3.5-5.1); Total Bilirubin 0.2 mg/dL (0.2-1.3); Total Protein 6.2 g/dL (6.3-8.2)
[2022-11-15 01:34] LABS: INR 0.9 (<1.2); Prothrombin Time 9.7 sec (9.0-12.0)
[2022-11-15] MEDS ORDERED: MORPHINE SULFATE 4 MG/ML SYRINGE IVP STA (01:42)
[2022-11-15] MEDS ORDERED: SODIUM CHLORIDE 0.9% 1,000 ML IV STA (01:42)
[2022-11-15 01:50] LABS: Partial Thromboplastin Time 20.3 sec (22.0-30.0)
--- NOTE | 2022-11-15 01:53 | ED ---
General Adult HPI - General Chief complaint: Fall Stated complaint: Fall Time Seen by Provider: 11/15/22 00:22 Source: patient, EMS, RN notes reviewed, old records reviewed Mode of arrival: EMS Limitations: no limitations - History of Present Illness Initial comments: Patient is an 82-year-old female who presents emergency Department following a fall. Patient states it was a mechanical fall. She sat up from bed and stood and states her right leg gave out on her. She immediately fell backwards onto her right hip. States she did not hit her head or lose consciousness. Is not on blood thinners. She denies any other obvious injuries other than a small abrasion to the right forearm. Unknown last tetanus. Neurovascular intact in the right lower extremity. Denies any other obvious injuries. Denies any back pain. Denies any abdominal pain, chest pain, shortness breath. Denies syncopal episode. Denies any weakness otherwise. Presents after the fall over concern for hip fracture. - Related Data Home Medications Medication Instructions Recorded Confirmed Amitriptyline HCl [Elavil] 75 mg PO HS 07/06/14 01/30/18 Bisoprolol-Hctz 10-6.25 mg [Ziac 2 tab PO DAILY 07/06/14 01/30/18 10-6.25 MG] INSULIN ASPART (NovoLOG) [NovoLOG] 0 unit SQ DAILY PRN 07/06/14 01/30/18 Lansoprazole 30 mg PO DAILY 07/06/14 01/30/18 Insulin Glargine,Hum.rec.anlog 0 unit SQ DAILY PRN 11/15/15 01/30/18 [Lantus Solostar] Atorvastatin [Lipitor] 20 mg PO HS 01/30/18 01/30/18 Biotin [Biotin Disolve] 5,000 mcg PO DAILY 01/30/18 01/30/18 Calcium Carbonate/Vitamin D3 1 tab PO BID 01/30/18 01/30/18 [Calcium 600-Vit D3 400 Caplet] Cholecalciferol [Vitamin D3] 1,000 unit PO DAILY 01/30/18 01/30/18 Diphenoxylate HCl/Atropine 1 tab PO QID PRN 01/30/18 01/30/18 [Lomotil 2.5-0.025 mg Tablet] Fluticasone Nasal [place] [Flonase 1 - 2 spray EA NOSTRIL DAILY PRN 01/30/18 01/30/18 Nasal [place]] Gabapentin [Neurontin] 100 mg PO DAILY 01/30/18 01/30/18 Multivitamins, Thera [Multivitamin 1 tab PO DAILY 01/30/18 01/30/18 (formulary)] Nitrofurantoin Monohyd/M-Cryst 100 mg PO Q12HR 01/30/18 01/30/18 [Macrobid] Olopatadine HCl [Patanol] 1 drop OP BID 01/30/18 01/30/18 Previous Rx's Medication Instructions Recorded Phenazopyridine [Pyridium] 200 mg PO TID 3 Days #10 tablet 01/30/18 Sulfamethox-Tmp 800-160Mg [Bactrim 1 tab PO Q12HR 7 Days #14 tab 01/30/18 DS 800-160 mg] Cephalexin [Keflex] 500 mg PO Q6HR 7 Days #28 cap 10/18/20 Cephalexin [Keflex] 500 mg PO Q6HR 7 Days #28 cap 05/26/21 Allergies Allergy/AdvReac Type Severity Reaction Status Date / Time No Known Allergies Allergy Verified 05/26/21 21:27 Review of Systems ROS Statement: Those systems with pertinent positive or pertinent negative responses have been documented in the HPI. Review of Systems: CONST: Denies fever EYES: Denies blurry vision ENT: Denies nasal congestion C/V: Denies Chest pain RESP: Denies shortness of breath GI: Denies abdominal pain : Denies dysuria SKIN: Endorses hip abrasion over the posterior aspect of the right forearm MSK: Endorses right hip pain NEURO: Denies headache Review of Systems: ROS Other: All systems not noted in ROS Statement are negative. Past Medical History Past Medical History: Diabetes Mellitus, GERD/Reflux, Hyperlipidemia, Hypertension, Sleep Apnea/CPAP/BIPAP History of Any Multi-Drug Resistant Organisms: None Reported Past Surgical History: Bariatric Surgery Additional Past Surgical History / Comment(s): bariatric sleeve procedure, rt rotator cuff, tummy tuck Past Anesthesia/Blood Transfusion Reactions: Postoperative Nausea & Vomiting (PONV) Smoking Status: Never smoker Past Alcohol Use History: None Reported Past Drug Use History: None Reported General Exam - General Exam Comments Initial Comments: General: She is in moderate distress secondary to right hip pain. HEAD: Normal with no signs of head trauma. Negative Pate sign. Negative raccoon eyes. EYES: PERRLA, EOMI, conjunctiva normal, no discharge. Pupils 3 mm and equal bilaterally. ENT: Hearing grossly intact, normal oropharynx. Cervical collar in place. RESPIRATORY: Clear breath sounds bilaterally. No wheezes, rales, or rhonchi. C/V: Regular rate and rhythm. S1 and S2 auscultated, no edema, peripheral pulses 2+ and intact throughout ABD: Abd is soft, nontender, nondistended EXT: Right lower extremity is externally rotated, shortened. Tenderness over the right lateral hip. Concern for hip fracture. No deformity distal to the hip. No pain distal to the hip. Neurovascular intact throughout the right lower extremity. No midline cervical, thoracic, lumbar spine tenderness to palpation. Pelvis is stable. SKIN: Small abrasion located the posterior aspect of the right forearm. NEURO: Alert and oriented 4. No focal sensory deficits. Weakness in the right upper extremity secondary to obvious deformity in the right hip, however neurologically intact throughout. GCS of 15. Limitations: no limitations Course Vital Signs 11/15/22 11/15/22 11/15/22 00:24 01:27 02:27 Temperature 98 F Pulse Rate 82 88 83 Respiratory 16 16 16 Rate Blood Pressure 185/100 187/85 197/94 O2 Sat by Pulse 92 L 94 L 92 L Oximetry 11/15/22 03:00 Temperature Pulse Rate 80 Respiratory 16 Rate Blood Pressure 187/96 O2 Sat by Pulse 99 Oximetry Medical Decision Making - Medical Decision Making Was pt. sent in by a medical professional or institution (, PA, COMMUNITY DIETITIAN, urgent care, hospital, or snf...) When possible be specific @ -No Did you speak to anyone other than the patient for history (EMS, parent, family, police, friend...)? What history was obtained from this source @ -No Did you review nursing and triage notes (agree or disagree)? Why? @ -I reviewed and agree with nursing and triage notes Were old charts reviewed (outside hosp., previous admission, EMS record, old EKG, old radiological studies, urgent care reports/EKG's, snf records)? Report findings @ -No old charts were reviewed Differential Diagnosis (chest pain, altered mental status, abdominal pain women, abdominal pain men, vaginal bleeding, weakness, fever, dyspnea, syncope, headache, dizziness, GI bleed, back pain, seizure, CVA, palpatations, mental health, musculoskeletal)? @ -Muscle strain, muscle sprain, fracture, intracranial injury. This list is not all inclusive. EKG interpreted by me (3pts min.). @ -None done X-rays interpreted by me (1pt min.). @ -Chest x-ray negative for any acute process. Right hip and pelvis x-ray remarkable for obvious right comminuted intertrochanteric fracture of the femur. CT interpreted by me (1pt min.). @ -CT brain, C-spine negative for acute intracranial process or cervical spine injury that are obvious. U/S interpreted by me (1pt. min.). @ -None done What testing was considered but not performed or refused? (CT, X-rays, U/S, labs)? Why? @ -None What meds were considered but not given or refused? Why? @ -None Did you discuss the management of the patient with other professionals (professionals i.e. , PA, COMMUNITY DIETITIAN, lab, RT, psych nurse, forensic social worker, endocrinology teacher, teacher, tax revenue officer, complex case manager)? Give summary @ -No Was smoking cessation discussed for >3mins.? @ -No Was critical care preformed (if so, how long)? @ -No Were there social determinants of health that impacted care today? How? (Homelessness, low income, unemployed, alcoholism, drug addiction, transportation, low edu. Level, literacy, decrease access to med. care, shelter, rehab)? @ -No Was there de-escalation of care discussed even if they declined (Discuss DNR or withdrawal of care, Hospice)? DNR status @ -No What co-morbidities impacted this encounter? (DM, HTN, Smoking, COPD, CAD, Can cer, CVA, ARF, Chemo, Hep., AIDS, mental health diagnosis, sleep apnea, morbid obesity)? @ -None Was patient admitted / discharged? Hospital course, mention meds given and route, prescriptions, significant lab abnormalities, going to OR and other pertinent info. @ -Based on the patient's presentation and physical exam, she percents after a mechanical fall. Concern for hip fracture. We will obtain basic trauma labs as well as x-rays of the right hip, pelvis, femur, chest and CT imaging of the C- spine and brain. This is done due to her age. She was in agreement this plan Vital signs within acceptable limits. Morphine was administered by EMS and therefore will be held initially she states her pain is more improved at this time. We will update tetanus implied with a 1 L fluid bolus and placed on maintenance fluids. She was in agreement this plan. Patient's labs are remarkable for mild hypokalemia which is likely secondary to trauma. Patient has what appears to be CK D with a creatinine of 1.16 and a decreased GFR which is chronic for the patient. Patient also has mild hyperglycemia in the setting of diabetes. Patient's imaging of the brain and C- spine negative for any acute fractures or process. Chest x-ray is within acceptable limits. Patient does have what appears to be a obvious right femur comminuted intertrochanteric fracture. Imaging as well as reads were delayed due to volumes for radiology. I updated family members as well as the patient. She was administered additional analgesic medications at this time. Cervical collar was removed and C-spine was cleared. She remains having intact neurovascular status in the distal right lower extremity. She expressed understanding. Patient was given a pure wick rather than a [place] at this time. Dr. Franks of orthopedic surgery was paged at 0241 for admission. She accepted the admission at approximately 3:[address] Bravo of [facility] was notified of the medical consult. They were in agreement with this plan. Patient will remain nothing by mouth at this time. Maintenance fluids were ordered. Undiagnosed new problem with uncertain prognosis? @ -No Drug Therapy requiring intensive monitoring for toxicity (Heparin, Nitro, Insulin, Cardizem)? @ -No Were any procedures done? @ -No Diagnosis/symptom? @ -Mechanical fall Acute, or Chronic, or Acute on Chronic? @ -Acute Uncomplicated (without systemic symptoms) or Complicated (systemic symptoms)? @ -Complicated Side effects of treatment? @ -No Exacerbation, Progression, or Severe Exacerbation? @ -No Poses a threat to life or bodily function? How? (Chest pain, USA, NC, pneumonia, PE, COPD, DKA, ARF, appy, cholecystitis, CVA, Diverticulitis, Homicidal, Suicidal, threat to staff... and all critical care pts) @ -Yes, can result in significant morbidity and mortality based on injuries Diagnosis/symptom? @ -Right intertrochanteric comminuted femur fracture Acute, or Chronic, or Acute on Chronic? @ -Acute Uncomplicated (without systemic symptoms) or Complicated (systemic symptoms)? @ -Complicated Side effects of treatment? @ -none Exacerbation, Progression, or Severe Exacerbation] @ -no Poses a threat to life or bodily function? @ -Yes, if not treated can result in significant morbidity and mortality. - Lab Data Result diagrams: 11/15/22 00:58 11/15/22 00:58 Lab Results 11/15/22 11/15/22 11/15/22 Range/Units 00:51 00:56 00:58 WBC 5.4 (3.8-10.6) k/uL RBC 4.25 (3.80-5.40) m/uL Hgb 12.0 (11.4-16.0) gm/dL Hct 37.6 (34.0-46.0) % MCV 88.5 (80.0-100.0) fL MCH 28.4 (25.0-35.0) pg MCHC 32.0 (31.0-37.0) g/dL RDW 12.8 (11.5-15.5) % Plt Count 257 (150-450) k/uL MPV 7.1 Neutrophils % 76 % Lymphocytes % 17 % Monocytes % 4 % Eosinophils % 1 % Basophils % 0 % Neutrophils # 4.1 (1.3-7.7) k/uL Lymphocytes # 1.0 (1.0-4.8) k/uL Monocytes # 0.2 (0-1.0) k/uL Eosinophils # 0.1 (0-0.7) k/uL Basophils # 0.0 (0-0.2) k/uL PT (9.0-12.0) sec INR (<1.2) APTT (22.0-30.0) sec Sodium (137-145) mmol/L Potassium (3.5-5.1) mmol/L Chloride (98-107) mmol/L Carbon Dioxide (22-30) mmol/L Anion Gap mmol/L BUN (7-17) mg/dL Creatinine (0.52-1.04) mg/dL Est GFR (CKD-EPI)AfAm (>60 ml/min/1.73 sqM) Est GFR (CKD-EPI)NonAf (>60 ml/min/1.73 sqM) Glucose (74-99) mg/dL Calcium (8.4-10.2) mg/dL Total Bilirubin (0.2-1.3) mg/dL AST (14-36) U/L ALT (4-34) U/L Alkaline Phosphatase (38-126) U/L Total Protein (6.3-8.2) g/dL Albumin (3.5-5.0) g/dL Blood Type A Positive Blood Type Confirm A Positive Blood Type Recheck No Previous Record Bld Type Recheck Status CABO Indicated Antibody Screen NEGATIVE Spec Expiration Date 11/18/2022 - 235011/15/22 11/15/22 Range/Units 00:58 00:58 WBC (3.8-10.6) k/uL RBC (3.80-5.40) m/uL Hgb (11.4-16.0) gm/dL Hct (34.0-46.0) % MCV (80.0-100.0) fL MCH (25.0-35.0) pg MCHC (31.0-37.0) g/dL RDW (11.5-15.5) % Plt Count (150-450) k/uL MPV Neutrophils % % Lymphocytes % % Monocytes % % Eosinophils % % Basophils % % Neutrophils # (1.3-7.7) k/uL Lymphocytes # (1.0-4.8) k/uL Monocytes # (0-1.0) k/uL Eosinophils # (0-0.7) k/uL Basophils # (0-0.2) k/uL PT 9.7 (9.0-12.0) sec INR 0.9 (<1.2) APTT 20.3 L (22.0-30.0) sec Sodium 139 (137-145) mmol/L Potassium 3.3 L (3.5-5.1) mmol/L Chloride 101 (98-107) mmol/L Carbon Dioxide 29 (22-30) mmol/L Anion Gap 9 mmol/L BUN 22 H (7-17) mg/dL Creatinine 1.16 H (0.52-1.04) mg/dL Est GFR (CKD-EPI)AfAm 51 (>60 ml/min/1.73 sqM) Est GFR (CKD-EPI)NonAf 44 (>60 ml/min/1.73 sqM) Glucose 275 H (74-99) mg/dL Calcium 8.2 L (8.4-10.2) mg/dL Total Bilirubin 0.2 (0.2-1.3) mg/dL AST 17 (14-36) U/L ALT 17 (4-34) U/L Alkaline Phosphatase 94 (38-126) U/L Total Protein 6.2 L (6.3-8.2) g/dL Albumin 3.6 (3.5-5.0) g/dL Blood Type Blood Type Confirm Blood Type Recheck Bld Type Recheck Status Antibody Screen Spec Expiration Date Critical Care Time Critical Care Time: Yes Total Critical Care Time: 35 Critical Care Time: Upon my evaluation, this patient had a high probability of imminent or life- threatening deterioration due to mechanical fall, acute right comminuted intertrochanteric fracture of the femur, which required my direct attention, intervention, and personal management. I have personally provided 35 minutes of critical care time exclusive of time spent on separately billable procedures. Time includes review of laboratory data, radiology results, discussion with consultants, and monitoring for potential decompensation. Interventions were performed as documented in my note. Disposition Clinical Impression: Fall, Closed comminuted intertrochanteric fracture of right femur Disposition: ADMITTED IP TO THIS HOSP Condition: Stable Referrals: None,Stated [REFERRING] - 1-2 days Time of Disposition: 02:30
--- NOTE | 2022-11-15 02:30 | CT ---
EXAMINATION TYPE: CT brain mayraine wo con DATE OF EXAM: 11/15/2022 COMPARISON: None HISTORY: FALL CT DLP: 1354 mGycm Automated exposure control for dose reduction was used. Images obtained of the brain and cervical spine with no contrast. Ventricles have normal size. There is no mass effect or midline shift. No sign of intracranial hemorr aysha. There is hyperostosis frontalis. The cervical vertebra have normal alignment. Posterior elements are intact. There is multilevel spur formation of the endplates. Facet joints are intact. No compression fracture. Prevertebral soft tissu es are intact. IMPRESSION: There is some mild atrophy appropriate for age. No acute intracranial abnormality. Multilevel cervical spondylotic changes. No fracture.
--- NOTE | 2022-11-15 02:32 | XR ---
EXAMINATION TYPE: XR chest 1V portable DATE OF EXAM: 11/15/2022 COMPARISON: NONE HISTORY: Fall. Pain TECHNIQUE: Single view FINDINGS: Heart is enlarged. No heart failure. There are no hilar masses. There is no pleural effusio n. Thoracic aorta is atheromatous. There are chest leads. IMPRESSION: Mild cardiomegaly. No active cardiopulmonary disease.
--- NOTE | 2022-11-15 02:34 | XR ---
EXAMINATION TYPE: XR Hip RT and AP Pelvis DATE OF EXAM: 11/15/2022 COMPARISON: NONE HISTORY: Fall. Pain TECHNIQUE: 3 views FINDINGS: Pelvic ring is intact. There is an acute comminuted intertrochanteric fracture right femur. There is separation of the fragments up to 1 cm. No dislocation. There is acetabular spurring. Sacro iliac joints are intact. IMPRESSION: Acute comminuted intertrochanteric fracture right femur.
--- NOTE | 2022-11-15 02:37 | XR ---
EXAMINATION TYPE: XR femur RT DATE OF EXAM: 11/15/2022 COMPARISON: NONE HISTORY: Fall. Pain TECHNIQUE: 4 views FINDINGS: There is acute intertrochanteric fracture of the right femur with comminution. The knee nevin nt is anatomic. There is spurring on the anterior patella. No dislocation. Knee joint spaces are norm al. IMPRESSION: Acute intertrochanteric fracture right femur.
[2022-11-15] MEDS ORDERED: KETOROLAC 15 MG/ML 1 ML VIAL IVP STA (02:55)
[2022-11-15] MEDS ORDERED: GABAPENTIN 300 MG CAP PO STA (02:55)
[2022-11-15] MEDS ORDERED: NALOXONE 0.4 MG/ML 1 ML VIAL IV PRN (03:21)
[2022-11-15] MEDS ORDERED: POTASSIUM CHLORIDE ER 20 MEQ TAB.ER PO STA (05:17)
[2022-11-15] MEDS ORDERED: cloNIDine HCL 0.2 MG TAB PO PRN (05:31)
--- NOTE | 2022-11-15 05:31 | P.CONS ---
History of Present Illness - Reason for Consult Consult date: 11/15/22 pre op clearance - Chief Complaint fall - History of Present Illness 82 year old female with DM patient woke up from sleep , she stood up from bed , lost her balance, and fell, hurting her hip , she could not stand up , denies head injury or passing out , denies any chest pain , palpitations or SOB. EMS brought her to the hospital , reporting pain , and inability to stand up or walk . imaging showed closed comminuted fracture of the right femur . she otherwise claims to be at her baseline good status of health , recently came back from a trip to [place]. normally able to do house chores , walk long distances and climb stairs with no limitations Review of Systems Pertinent positives as noted in HPI. All other systems were reviewed and are negative Past Medical History Past Medical History: Diabetes Mellitus, GERD/Reflux, Hyperlipidemia, Hypertension, Sleep Apnea/CPAP/BIPAP History of Any Multi-Drug Resistant Organisms: None Reported Past Surgical History: Bariatric Surgery Additional Past Surgical History / Comment(s): bariatric sleeve procedure, rt rotator cuff, tummy tuck Past Anesthesia/Blood Transfusion Reactions: Postoperative Nausea & Vomiting (PONV) Smoking Status: Never smoker Past Alcohol Use History: None Reported Past Drug Use History: None Reported Medications and Allergies Home Medications Medication Instructions Recorded Confirmed Type Amitriptyline HCl [Elavil] 75 mg PO HS 07/06/14 01/30/18 History Bisoprolol-Hctz 10-6.25 mg [Ziac 2 tab PO DAILY 07/06/14 01/30/18 History 10-6.25 MG] INSULIN ASPART (NovoLOG) [NovoLOG] 0 unit SQ DAILY PRN 07/06/14 01/30/18 History Lansoprazole 30 mg PO DAILY 07/06/14 01/30/18 History Insulin Glargine,Hum.rec.anlog 0 unit SQ DAILY PRN 11/15/15 01/30/18 History [Lantus Solostar] Atorvastatin [Lipitor] 20 mg PO HS 01/30/18 01/30/18 History Biotin [Biotin Disolve] 5,000 mcg PO DAILY 01/30/18 01/30/18 History Calcium Carbonate/Vitamin D3 1 tab PO BID 01/30/18 01/30/18 History [Calcium 600-Vit D3 400 Caplet] Cholecalciferol [Vitamin D3] 1,000 unit PO DAILY 01/30/18 01/30/18 History Diphenoxylate HCl/Atropine 1 tab PO QID PRN 01/30/18 01/30/18 History [Lomotil 2.5-0.025 mg Tablet] Fluticasone Nasal [place] [Flonase 1 - 2 spray EA NOSTRIL DAILY PRN 01/30/18 01/30/18 History Nasal [place]] Gabapentin [Neurontin] 100 mg PO DAILY 01/30/18 01/30/18 History Multivitamins, Thera [Multivitamin 1 tab PO DAILY 01/30/18 01/30/18 History (formulary)] Nitrofurantoin Monohyd/M-Cryst 100 mg PO Q12HR 01/30/18 01/30/18 History [Macrobid] Olopatadine HCl [Patanol] 1 drop OP BID 01/30/18 01/30/18 History Phenazopyridine [Pyridium] 200 mg PO TID 3 Days #10 tablet 01/30/18 Rx Sulfamethox-Tmp 800-160Mg [Bactrim 1 tab PO Q12HR 7 Days #14 tab 01/30/18 Rx DS 800-160 mg] Cephalexin [Keflex] 500 mg PO Q6HR 7 Days #28 cap 10/18/20 Rx Cephalexin [Keflex] 500 mg PO Q6HR 7 Days #28 cap 05/26/21 Rx Allergies Allergy/AdvReac Type Severity Reaction Status Date / Time No Known Allergies Allergy Verified 05/26/21 21:27 Physical Exam Vitals: Vital Signs Temp Pulse Resp BP Pulse Ox 11/15/22 05:00 75 16 140/76 98 11/15/22 04:00 78 16 136/78 98 11/15/22 03:00 80 16 187/96 99 11/15/22 02:27 83 16 197/94 92 L 11/15/22 01:27 88 16 187/85 94 L 11/15/22 00:24 98 F 82 16 185/100 92 L Intake and Output 11/14/22 11/14/22 11/15/22 14:59 22:59 06:59 Other: Weight 73.936 kg Constitutional: No acute distress, conversant, pleasant Eyes: Anicteric sclerae, moist conjunctiva, Pupils equal round reactive to light ENMT: NC/AT Oropharynx clear, no erythema, or exudates Neck: Supple, no masses, or JVD No carotid bruits No thyromegaly Lungs: Clear to auscultation Clear to percussion Normal respiratory effort, no accessory muscle use Cardiovascular: Heart regular in rate and rhythm, No murmurs, gallops, or rubs No peripheral edema Abdominal: Soft Nontender, no guarding, rebound or rigidity Abdomen moving with respiration Normoactive bowel sounds No hepatomegaly, No splenomegaly No palpable mass No abdominal wall hernia noted Skin: Normal temperature, tone, texture, turgor No induration No subcutaneous nodules No rash, lesions No ulcers Extremities: right lower extremity externally rotated and shortened No digital cyanosis No clubbing Pedal pulses intact and symmetrical Radial pulses intact and symmetrical No calf tenderness Psychiatric: Alert and oriented to person, place and time Appropriate affect fair judgment Neuro Muscles Strength 5/5 in bilateral upper and left lower extremities , limited exam over right lower extremity due to pain Sensation to light touch grossly present throughout Cranial nerves II-XII grossly intact Lymphatics: no palpable cervical or supraclavicular lymph nodes Results CBC & Chem 7: 11/15/22 00:58 11/15/22 00:58 Labs: Abnormal Lab Results - Last 24 Hours (Table) 11/15/22 11/15/22 Range/Units 00:58 00:58 APTT 20.3 L (22.0-30.0) sec Potassium 3.3 L (3.5-5.1) mmol/L BUN 22 H (7-17) mg/dL Creatinine 1.16 H (0.52-1.04) mg/dL Glucose 275 H (74-99) mg/dL Calcium 8.2 L (8.4-10.2) mg/dL Total Protein 6.2 L (6.3-8.2) g/dL Assessment and Plan Assessment: mechanical fall , resulted in closed comminuted intertrochanteric fracture of right femur pain control management per primary orthopedic team DM hyperglycemia blood sugar 275 insulin sliding scale hypertension , uncontrolled resume bisoprolol pain control with morphine clonidine 0.2 mg PO QID PRN for systolic blood pressure >180 hyperlipidemia , resume atorvastatin hypokalemia replace PO with k dur 40 meq once recheck level in AM CKD III stabel BUN 22, Cr 1.16 around her baseline, monitor urine output monitor renal function WBC 5.4 , Hgb 12 unremarkable 82 year old female with right intertrochanteric fracture of the right femur , denies any recent history of CHF, [place], arrhythmia , syncope , seizure. she claims to be active at baseline functioning at METS>4 , with no history of stroke , CHF , CAD , she does have history of DM and mild CKD III. patient await surgical evaluation for possible repair of her right intertrochanteric femur fracture , based on medical history , risk factors and type of surgery , patient can proceed with moderate to high but acceptable perioperative cardiovascular risk with no modifiable risk factors at this time. This is contingent review of her pre operative EKG which is still pending , and correction of her K level . this has been explained to the patient who verbalized understanding follow up EKG and repeat K level , before surgery thank you for this consultation
[2022-11-15 08:24] LABS: Glucose,Whole Blood 134 mg/dL (70-110)
[2022-11-15] MEDS: INSULIN ASPART (NovoLOG) 100 UNIT/ML VIAL SQ SCH ×4 (08:37→21:16)
[2022-11-15] MEDS: HEPARIN SODIUM,PORCINE/PF 5,000 UNIT/0.5 ML SYRINGE SQ SCH ×3 (08:50→23:18)
[2022-11-15] MEDS: BISOPROLOL-HCTZ 10-6.25 MG 1 EACH TAB PO SCH (08:50)
[2022-11-15] MEDS: PANTOPRAZOLE 40 MG TABLET PO SCH (08:50)
[2022-11-15] MEDS ORDERED: BISOPROLOL-HCTZ 10-6.25 MG 1 EACH TAB PO SCH (09:00)
[2022-11-15 09:36] LABS: HCT 35.4 % (34.0-46.0); Hypochromasia Slight; MCH 31.1 pg (25.0-35.0); MCV 91.3 fL (80.0-100.0); Mean Platelet Volume 7.2; Platelet Count 219 k/uL (150-450); RBC 3.87 m/uL (3.80-5.40); RDW 13.2 % (11.5-15.5)
[2022-11-15 09:44] LABS: African American GFR (CKD) 78 (>60 ml/min/1.73 sqM); Anion Gap 7 mmol/L; Blood Urea Nitrogen 20 mg/dL (7-17); Calcium 7.8 mg/dL (8.4-10.2); Carbon Dioxide 25 mmol/L (22-30); Chloride 108 mmol/L (98-107); Glucose 142 mg/dL (74-99); Magnesium 1.4 mg/dL (1.6-2.3); Non-African American GFR(CKD) 67 (>60 ml/min/1.73 sqM); Sodium 140 mmol/L (137-145)
[2022-11-15 09:48] LABS: Potassium 3.6 mmol/L (3.5-5.1)
[2022-11-15 10:57] LABS: ALT 10 U/L (8-44); AST 9 U/L (13-35); Albumin 3.5 g/dL (3.8-4.9); Albumin/Globulin Ratio 1.62 (1.60-3.17); Alkaline Phosphatase 80 U/L (41-126); BUN/Creat Ratio 17.96 Ratio (12.00-20.00); Blood Urea Nitrogen 18.5 mg/dL (9.0-27.0); Calcium 8.2 mg/dL (8.7-10.3); Carbon Dioxide 29.5 mmol/L (20.0-27.5); Chloride 105 mmol/L (96-109); Globulin 2.1 g/dL (1.6-3.3); Glucose 167 mg/dL (70-110); Non-African American GFR(CKD) 50.9 (60.0-200.0); Potassium 3.6 mmol/L (3.5-5.5); Sodium 146 mmol/L (135-145); Total Bilirubin <0.15 mg/dL (0.30-1.20); Total Protein 5.6 g/dL (6.2-8.2)
[2022-11-15] MEDS: MORPHINE SULFATE 4 MG/ML SYRINGE IV PRN ×2 (11:04→16:12)
--- NOTE | 2022-11-15 11:58 | P.HPOR ---
History of Present Illness H&P Date: 11/15/22 Chief Complaint: Right hip fracture This is an 82-year-old female who presents to the emergency department late last evening after falling and sustaining injury to her right hip. She states that her right leg gave out on her causing her to fall. She denies head injury or lo ss of consciousness. She states that her only pain is in her right hip and upper leg. She is on no anticoagulation therapy. She does have history of insulin-dependent diabetes. She is otherwise fairly healthy. She is admitted to our service for surgical intervention. . Past Medical History Past Medical History: Diabetes Mellitus, GERD/Reflux, Hyperlipidemia, Hypertension, Sleep Apnea/CPAP/BIPAP History of Any Multi-Drug Resistant Organisms: None Reported Past Surgical History: Bariatric Surgery Additional Past Surgical History / Comment(s): bariatric sleeve procedure, rt ro tator cuff, lillian landrum Past Anesthesia/Blood Transfusion Reactions: Postoperative Nausea & Vomiting (PONV) Smoking Status: Never smoker Past Alcohol Use History: None Reported Past Drug Use History: None Reported Medications and Allergies Home Medications Medication Instructions Recorded Confirmed Type Amitriptyline HCl [Elavil] 75 mg PO HS 07/06/14 11/15/22 History Bisoprolol-Hctz 10-6.25 mg [Ziac 1 tab PO DAILY 07/06/14 11/15/22 History 10-6.25 MG] Lansoprazole 30 mg PO DAILY 07/06/14 11/15/22 History Insulin Glargine,Hum.rec.anlog 6 - 20 unit SQ HS PRN 11/15/15 11/15/22 History [Lantus Solostar] Atorvastatin [Lipitor] 20 mg PO DAILY 01/30/18 11/15/22 History Diphenoxylate HCl/Atropine 1 - 2 tab PO QID PRN 01/30/18 11/15/22 History [Lomotil 2.5-0.025 mg Tablet] Dulaglutide [Trulicity] 1.5 mg SQ TU 11/15/22 11/15/22 History Gabapentin [Neurontin] 100 mg PO TID PRN 11/15/22 11/15/22 History Prednisolone Acetate/Pf 1 drop BOTH EYES BID 11/15/22 11/15/22 History [Prednisolone Acet 1% Eye Drop] Psyllium Husk [Metamucil] 0.4 gm PO DAILY 11/15/22 11/15/22 History Vitamin B-12(Unknown Dose) 1 tab PO DAILY 11/15/22 11/15/22 History metFORMIN HCL ER [Glucophage XR] 500 mg PO BID 11/15/22 11/15/22 History Allergies Allergy/AdvReac Type Severity Reaction Status Date / Time No Known Allergies Allergy Verified 11/15/22 07:48 Physical Examination This is a pleasant 82-year-old female in no acute distress. She is alert and oriented 3. Exam of the head and neck reveal no obvious deformity. She has full cervical spine motion without difficulty or pain. She is nontender over the cervical spine or paraspinal musculature. Exam of the upper extremities is unremarkable. She has full motion of the shoulders, elbows, wrists and fingers bilaterally. Neurovascular status to the upper extremities is intact. Exam of the lower extremities reveals shortening and external rotation to the right lower extremity. She has full foot and ankle motion bilaterally. Pedal pulses are +2/4. Neurovascular status to the lower extremities is intact. Results X-rays reveal a comminuted and displaced 4 part intertrochanteric fracture of the right hip. No other fractures identified. - Labs Labs: Abnormal Lab Results - Last 24 Hours (Table) 11/15/22 11/15/22 11/15/22 Range/Units 00:58 00:58 06:19 APTT 20.3 L (22.0-30.0) sec Sodium 146 H (135-145) mmol/L Potassium 3.3 L (3.5-5.1) mmol/L Chloride (98-107) mmol/L Carbon Dioxide 29.5 H (20.0-27.5) mmol/L BUN 22 H (7-17) mg/dL Creatinine 1.16 H (0.52-1.04) mg/dL Est GFR (CKD-EPI)AfAm 59.0 L (60.0-200.0) Est GFR (CKD-EPI)NonAf 50.9 L (60.0-200.0) Glucose 275 H 167 H (74-99) mg/dL POC Glucose (mg/dL) (70-110) mg/dL Calcium 8.2 L 8.2 L (8.4-10.2) mg/dL Magnesium (1.6-2.3) mg/dL Total Bilirubin <0.15 L (0.30-1.20) mg/dL AST 9 L (13-35) U/L Total Protein 6.2 L 5.6 L (6.3-8.2) g/dL Albumin 3.5 L (3.8-4.9) g/dL 11/15/22 11/15/22 Range/Units 08:22 08:51 APTT (22.0-30.0) sec Sodium (135-145) mmol/L Potassium (3.5-5.1) mmol/L Chloride 108 H (98-107) mmol/L Carbon Dioxide (20.0-27.5) mmol/L BUN 20 H (7-17) mg/dL Creatinine (0.52-1.04) mg/dL Est GFR (CKD-EPI)AfAm (60.0-200.0) Est GFR (CKD-EPI)NonAf (60.0-200.0) Glucose 142 H (74-99) mg/dL POC Glucose (mg/dL) 134 H (70-110) mg/dL Calcium 7.8 L (8.4-10.2) mg/dL Magnesium 1.4 L (1.6-2.3) mg/dL Total Bilirubin (0.30-1.20) mg/dL AST (13-35) U/L Total Protein (6.3-8.2) g/dL Albumin (3.8-4.9) g/dL H & H 11/15/22 11/15/22 Range/Units 00:58 08:51 Hgb 12.0 12.0 (11.4-16.0) gm/dL Hct 37.6 35.4 (34.0-46.0) % Coagulation 11/15/22 Range/Units 00:58 INR 0.9 (<1.2) Result Diagrams: 11/15/22 08:51 11/15/22 08:51 Assessment and Plan (1) Closed right hip fracture Current Visit: Yes Status: Acute Code(s): S72.001A - FRACTURE OF UNSP PART OF NECK OF RIGHT FEMUR, INIT SNOMED Code(s): 904445178 (2) Closed comminuted intertrochanteric fracture of right femur Current Visit: Yes Status: Acute Code(s): S72.141A - DISPLACED INTERTROCHANTERIC FRACTURE OF RIGHT FEMUR, INIT SNOMED Code(s): 164604262 (3) Fall Current Visit: Yes Status: Acute Code(s): W19.XXXA - UNSPECIFIED FALL, INITIAL ENCOUNTER SNOMED Code(s): 3279682 (4) Diabetes Current Visit: No Status: Acute Code(s): E11.9 - TYPE 2 DIABETES MELLITUS WITHOUT COMPLICATIONS SNOMED Code(s): 94357913 Plan: The clinical and x-ray findings are discussed with the patient. It is recommended she undergo closed reduction and insertion of an intertrochanteric nail. The patient will be admitted to our service and we are planning surgery tomorrow if cleared medically. It is discussed with the patient that she will likely require inpatient rehabilitation postoperatively.
[2022-11-15 13:02] LABS: Glucose,Whole Blood 102 mg/dL (70-110)
[2022-11-15] MEDS: KETOROLAC 15 MG/ML 1 ML VIAL IVP PRN ×2 (14:25→21:16)
--- NOTE | 2022-11-15 14:40 | P.PN ---
Subjective Progress Note Date: 11/15/22 Hospital course: Patient is a very pleasant 82-year-old female with a past medical history of hypertension, hyperlipidemia, insulin-dependent diabetes mellitus, bariatric surgery, and glaucoma. She presented to the emergency department status post mechanical fall which resulted in an acute intertrochanteric fracture of right femur. Patient was admitted under orthopedic surgery team and we were consulted for presurgical clearance and medical management throughout patient's hospit alization. Physical exam: Vital signs reviewed and stable. General: Nontoxic, no distress and appears stated age. Derm: Skin warm and dry, normal coloration for ethnicity. Head: Atraumatic, normocephalic and symmetric. Eyes: EOMs intact, no lid lag, and anicteric sclera Mouth: no lip lesions, mucus membranes moist Cardiovascular: regular rate and rhythm with normal S1S2, no murmur, positive posterior tibial pulses bilaterally, and cap refill < 2 seconds. Lungs: Respirations even, regular, and unlabored on room air. Lungs CTA bilaterally, no rhonchi, no rales, no wheezing, and no accessory muscle usage. Abdominal: soft, nontender to palpation, no guarding, no appreciable organomega ly RLE positive shortening with right lateral rotation. Neuro: Speech clear, face symmetrical and CN II-XII grossly intact with no noted focal neuro deficits Psych: Alert and oriented to person, place, time, and situation. Appropriate and pleasant affect. Assessment and Plan of Care: Morning labs reviewed and stable. CBC unremarkable. BMP revealing mild hypochloremia with chloride of 108, slightly elevated BUN of 20. Magnesium was low at 1.4 and orders placed for 4 g magnesium sulfate IVPB. Presurgical clearance -NSQIP surgical risk score was calculated. Patient is a below average risk of serious complication with patient 6.6% risk an average risk of 8.4%, below average risk of cardiac complication with a 0.8% risk an average risk of 1.1%, and below average risk of at 0.5% with average risk of 2.9%. -NSQIP completed showing a below average score for cardiac complication, serious complication, and . Patient's METS score is also greater than 4. From a medical perspective, patient may proceed to surgery after EKG is completed and reviewed without further need for testing at this time. Order placed for EKG at this time. Right comminuted femoral fracture Mechanical fall -X-ray right hip completed and radiology report reviewed revealing an acute intertrochanteric fracture of right femur. -Patient was admitted under orthopedic surgery team and we were consulted for presurgical clearance and medical management throughout patient's hospitalization. Hypertension -Monitor vital signs and continue daily medication regimen with bisoprolol/hydrochlorothiazide 10/625 mg tablets daily. Currently blood pressure stable 152/78 with heart rate of 70. Hyperlipidemia -Patient to continue with atorvastatin 20 mg nightly. Insulin-dependent diabetes mellitus -Currently blood glucose levels stable with blood sugar of 167. Patient placed on glycemic protocol with NovoLog sliding scale. Thank you for allowing us to participate in the care of this pleasant patient. Do not hesitate to contact us with questions. Someone can be reached from the [facility] hospitalist group all hours of the day at [phone] or via [employer] [place]. Jason Hu NP rendered care for this patient independently, reviewed the findings and plan as documented in the note above. I did not physically speak with or examine the patient on this date. Objective - Vital Signs Vital signs: Vital Signs Temp 98 F 11/15/22 00:24 Pulse 70 11/15/22 08:48 Resp 16 11/15/22 08:48 BP 152/78 11/15/22 08:48 Pulse Ox 98 11/15/22 08:48 FiO2 Intake & Output 11/14/22 11/15/22 11/15/22 18:59 06:59 18:59 Weight 73.936 kg - Labs CBC & Chem 7: 11/19/22 06:02 11/19/22 06:02 Labs: Abnormal Lab Results - Last 24 Hours (Table) 11/15/22 11/15/22 11/15/22 Range/Units 00:58 00:58 08:22 APTT 20.3 L (22.0-30.0) sec Potassium 3.3 L (3.5-5.1) mmol/L BUN 22 H (7-17) mg/dL Creatinine 1.16 H (0.52-1.04) mg/dL Glucose 275 H (74-99) mg/dL POC Glucose (mg/dL) 134 H (70-110) mg/dL Calcium 8.2 L (8.4-10.2) mg/dL Total Protein 6.2 L (6.3-8.2) g/dL
[2022-11-15 16:49] LABS: Glucose,Whole Blood 128 mg/dL (70-110)
[2022-11-15] MEDS: MAGNESIUM SULFATE-D5W PMX 1 GM in DEXTROSE/WATER 1 100ML.BAG IVPB SCH ×3 (19:20→23:18)
[2022-11-15 20:20] LABS: Glucose,Whole Blood 212 mg/dL (70-110)
[2022-11-15] MEDS: ATORVASTATIN 20 MG TAB PO SCH (21:11)
[2022-11-15] MEDS: AMITRIPTYLINE HCL 25 MG TAB PO SCH (21:17)
[2022-11-15] MEDS: prednisoLONE ACETATE 1% OPHTH DROPS 5 ML BTL BOTH EYES SCH (21:17)
[2022-11-16] MEDS: MAGNESIUM SULFATE-D5W PMX 1 GM in DEXTROSE/WATER 1 100ML.BAG IVPB SCH (00:35)
[2022-11-16] MEDS ORDERED: TRANEXAMIC ACID 1,000 MG in SODIUM CHLORIDE 0.9% 100 ML IVPB PRN (06:00)
[2022-11-16] MEDS: INSULIN ASPART (NovoLOG) 100 UNIT/ML VIAL SQ SCH ×4 (06:33→21:08)
[2022-11-16] MEDS: PANTOPRAZOLE 40 MG TABLET PO SCH (06:33)
[2022-11-16 06:41] LABS: Glucose,Whole Blood 103 mg/dL (70-110)
[2022-11-16] MEDS: HEPARIN SODIUM,PORCINE/PF 5,000 UNIT/0.5 ML SYRINGE SQ SCH (07:50)
[2022-11-16] MEDS: MORPHINE SULFATE 4 MG/ML SYRINGE IV PRN (08:22)
[2022-11-16] MEDS: BISOPROLOL-HCTZ 10-6.25 MG 1 EACH TAB PO SCH (08:23)
[2022-11-16] MEDS: prednisoLONE ACETATE 1% OPHTH DROPS 5 ML BTL BOTH EYES SCH ×2 (08:24→21:09)
[2022-11-16 09:22] LABS: Basophils # (A) 0.01 X 10*3/uL (0.00-0.10); Basophils % (A) 0.2 %; Eosinophils # (A) 0.06 X 10*3/uL (0.04-0.35); Eosinophils % (A) 1.2 %; HCT 31.6 % (37.2-46.3); HGB 9.6 g/dL (12.0-15.0); Immature Grans, Automated 0.2 %; Lymphocytes # (A) 1.04 X 10*3/uL (0.90-5.00); Lymphocytes % (A) 20.4 %; MCHC 30.4 g/dL (32.0-37.0); MCV 92.1 fL (80.0-97.0); Mean Platelet Volume 9.7 fL (9.5-12.2); Monocytes # (A) 0.38 X 10*3/uL (0.20-1.00); Monocytes % (A) 7.5 %; NRBC Per 100 WBC 0 /100 WBCS (0.0-0.0); Neutrophils % (A) 70.5 %; Platelet Count 218 X 10*3/uL (140-440); RBC 3.43 X 10*6/uL (4.10-5.20); RDW 12.9 % (11.5-14.5)
[2022-11-16 09:53] LABS: African American GFR (CKD) 61.2 (60.0-200.0); Anion Gap 10.5 mmol/L (10.00-18.00); BUN/Creat Ratio 17.7 Ratio (12.00-20.00); Blood Urea Nitrogen 17.7 mg/dL (9.0-27.0); Calcium 8.4 mg/dL (8.7-10.3); Carbon Dioxide 27.5 mmol/L (20.0-27.5); Magnesium 2.6 mg/dL (1.5-2.4); Non-African American GFR(CKD) 52.8 (60.0-200.0); Potassium 4.1 mmol/L (3.5-5.5)
[2022-11-16] MEDS ORDERED: SODIUM CHLORIDE 0.9% 50 ML with ceFAZolin 2,000 MG IV ONE ×2 (10:24)
[2022-11-16] MEDS ORDERED: LACTATED RINGERS 1,000 ML IV ONE ×2 (10:24→12:04)
[2022-11-16] MEDS ORDERED: TRANEXAMIC ACID IN NACL,ISO-OS 1,000 MG/100 ML BAG ONE (10:26)
[2022-11-16] MEDS ORDERED: PROPOFOL 10 MG/ML 20 ML VIAL IV ONE (10:26)
[2022-11-16] MEDS ORDERED: MIDAZOLAM 2 MG/2 ML VIAL ONE (10:26)
[2022-11-16] MEDS ORDERED: KETAMINE 10 MG/ML 20 ML VIAL ONE (10:26)
[2022-11-16] MEDS ORDERED: PHENYLEPHRINE-0.9% NACL SYG 1,000 MCG/10 ML SYRINGE ONE (10:26)
[2022-11-16] MEDS ORDERED: HYDROmorphone 0.5 MG/0.5 ML SYRINGE IVP PRN ×3 (12:15)
[2022-11-16] MEDS ORDERED: NALOXONE 0.4 MG/ML 1 ML VIAL IV PRN (12:15)
[2022-11-16] MEDS ORDERED: MAGNESIUM HYDROXIDE 2,400 MG/10 ML CUP PO PRN (12:15)
[2022-11-16] MEDS ORDERED: ONDANSETRON 4 MG/2 ML VIAL IVP PRN (12:15)
--- NOTE | 2022-11-16 12:44 | XR ---
Fluoroscopy INDICATION: Pain FINDINGS: Fluoroscopy time: 2 minutes 1.6 seconds. DAP: 8.2850 mGycm^2 Images obtained: 6. IMPRESSIONS: 1. Documentation of fluoroscopy.
--- NOTE | 2022-11-16 12:46 | FL ---
Fluoroscopy INDICATION: Pain FINDINGS: Fluoroscopy time: 2 minutes 1.6 seconds. DAP: 8.2850 mGycm^2 Images obtained: 4. IMPRESSIONS: 1. Documentation of fluoroscopy.
[2022-11-16 13:39] LABS: Glucose,Whole Blood 136 mg/dL (70-110)
[2022-11-16 16:30] LABS: Basophils % (A) 0 %; Eosinophils # (A) 0.1 k/uL (0-0.7); Eosinophils % (A) 1 %; HCT 29.3 % (34.0-46.0); Lymphocytes # (A) 0.8 k/uL (1.0-4.8); Lymphocytes % (A) 13 %; MCH 29.4 pg (25.0-35.0); MCHC 32.6 g/dL (31.0-37.0); MCV 90.1 fL (80.0-100.0); Mean Platelet Volume 7.1; Monocytes # (A) 0.3 k/uL (0-1.0); Monocytes % (A) 5 %; Neutrophils # (A) 4.8 k/uL (1.3-7.7); Neutrophils % (A) 80 %; Platelet Count 213 k/uL (150-450); RBC 3.26 m/uL (3.80-5.40); RDW 12.8 % (11.5-15.5); WBC 5.9 k/uL (3.8-10.6)
[2022-11-16 16:33] LABS: HGB 9.6 gm/dL (11.4-16.0)
[2022-11-16 16:54] LABS: Glucose,Whole Blood 183 mg/dL (70-110)
[2022-11-16] MEDS: LACTATED RINGERS 1,000 ML IV SCH ×2 (17:00→22:19)
--- NOTE | 2022-11-16 17:19 | P.PN ---
Subjective Progress Note Date: 11/16/22 Hospital course: Patient is a very pleasant 82-year-old female with a past medical history of hypertension, hyperlipidemia, insulin-dependent diabetes mellitus, bariatric surgery, and glaucoma. She presented to the emergency department status post mechanical fall which resulted in an acute intertrochanteric fracture of right femur. Patient was admitted under orthopedic surgery team and we were consulted for presurgical clearance and medical management throughout patient's hospitalization. NSQIP was completed showing a below average score for cardiac complication, serious complication, and . Patient's METS score was also greater than 4. EKG was completed and reviewed showing normal sinus rhythm at 73 bpm with T-wave inversion in septal leads V1 and V2 and no ST abnormalities showing no signs of acute ischemia upon personal review and interpretation. patient was cleared from medical perspective to proceed to surgery without further need for testing. patient underwent closed reduction with intertrochanteric nailing of right hip with Dr. Franks on 11/16/22. Physical exam: General: non toxic, no distress, appears at stated age Derm: warm, dry Head: atraumatic, normocephalic, symmetric Eyes: EOMI, no lid lag, anicteric sclera Mouth: no lip lesion, mucus membranes moist Cardiovascular: S1S2 reg, no murmur, positive posterior tibial pulse bilateral, Lungs: CTA bilateral, no rhonchi, no rales , no accessory muscle use Abdominal: soft, nontender to palpation, no guarding, no appreciable organomega ly Ext: movement and sensation intact. no gross muscle atrophy, no edema, no contractures. postoperative dressing and ice pack in place to right lateral hip. Neuro: CN II-XI grossly intact, no focal neuro deficits Psych: Alert, oriented, appropriate affect Assessment and Plan of Care: Acute blood loss anemia, secondary to femur fracture Hypomagnesemia, resolved Right comminuted femoral fracture Mechanical fall. -Morning labs reviewed revealing a drop in hemoglobinfrom 12.0 upon arrival to our facility down to 9.6 this morning. Acute blood loss anemia is believed to be secondary to femur fracture. Patient showing no signs of active bleeding at this time. We will continue to monitor closely with repeat CBC. No need for intervention or transfusion at this time. We will order for transfusion if hemoglobin decreases to less than 7 and/or patient shows signs of active bleeding. Status post closed reduction with intertrochanteric nailing of right hip -Management per primary admitting orthopedic surgery team including DVT prophylaxis, pain management, wound/dressing care, weightbearig, and PT/OT Hypertension -Monitor vital signs and continue daily medication regimen with bisoprolol/hydrochlorothiazide 10/625 mg tablets daily. Currently blood pressure stable 155/79 with heart rate of 76. Hyperlipidemia -Patient to continue with atorvastatin 20 mg nightly. Insulin-dependent diabetes mellitus -Blood glucose levels ranging from 102 to 212 over the past 24 hours. Continue glycemic protocol with NovoLog sliding scale. Thank you for allowing us to participate in the care of this pleasant patient. Do not hesitate to contact us with questions. Someone can be reached from the [facility] hospitalist group all hours of the day at [phone] or via [employer]. I reviewed the documentation as provided by the ERON above, who is the original author of this note. I agree with the documented assessment and plan, with the following changes: none Objective - Vital Signs Vital signs: Vital Signs Temp 98.2 F 11/16/22 07:19 Pulse 84 11/16/22 07:19 Resp 19 11/16/22 07:19 BP 154/85 11/16/22 07:19 Pulse Ox 95 11/16/22 07:19 FiO2 Intake & Output 11/15/22 11/16/22 11/16/22 18:59 06:59 18:59 Output Total 600 700 300 Balance -600 -700 -300 Weight 73.936 kg Output: Urine 600 700 300 Straight 600 400 Other: Voiding Method Bedpan Indwelling Catheter # Voids 0 - Labs CBC & Chem 7: 11/17/22 12:11 11/16/22 04:21 Labs: Abnormal Lab Results - Last 24 Hours (Table) 11/15/22 11/15/22 11/15/22 Range/Units 06:19 16:48 20:18 RBC (4.10-5.20) X 10*6/uL Hgb (12.0-15.0) g/dL Hct (37.2-46.3) % MCHC (32.0-37.0) g/dL Sodium 146 H (135-145) mmol/L Carbon Dioxide 29.5 H (20.0-27.5) mmol/L Est GFR (CKD-EPI)AfAm 59.0 L (60.0-200.0) Est GFR (CKD-EPI)NonAf 50.9 L (60.0-200.0) Glucose 167 H (70-110) mg/dL POC Glucose (mg/dL) 128 H 212 H (70-110) mg/dL Calcium 8.2 L (8.7-10.3) mg/dL Magnesium (1.5-2.4) mg/dL Total Bilirubin <0.15 L (0.30-1.20) mg/dL AST 9 L (13-35) U/L Total Protein 5.6 L (6.2-8.2) g/dL Albumin 3.5 L (3.8-4.9) g/dL 11/16/22 11/16/22 Range/Units 04:21 04:21 RBC 3.43 L (4.10-5.20) X 10*6/uL Hgb 9.6 L (12.0-15.0) g/dL Hct 31.6 L (37.2-46.3) % MCHC 30.4 L (32.0-37.0) g/dL Sodium (135-145) mmol/L Carbon Dioxide (20.0-27.5) mmol/L Est GFR (CKD-EPI)AfAm (60.0-200.0) Est GFR (CKD-EPI)NonAf 52.8 L (60.0-200.0) Glucose 133 H (70-110) mg/dL POC Glucose (mg/dL) (70-110) mg/dL Calcium 8.4 L (8.7-10.3) mg/dL Magnesium 2.6 H (1.5-2.4) mg/dL Total Bilirubin (0.30-1.20) mg/dL AST (13-35) U/L Total Protein (6.2-8.2) g/dL Albumin (3.8-4.9) g/dL
[2022-11-16] MEDS: HYDROcodone/APAP 5-325MG 1 EACH TAB PO PRN (18:59)
[2022-11-16 20:10] LABS: Glucose,Whole Blood 223 mg/dL (70-110)
[2022-11-16] MEDS ORDERED: TEMAZEPAM 15 MG CAP PO PRN (21:00)
[2022-11-16] MEDS: ASPIRIN 81 MG PO SCH (21:08)
[2022-11-16] MEDS: ATORVASTATIN 20 MG TAB PO SCH (21:08)
[2022-11-16] MEDS: SENNOSIDES-DOCUSATE SODIUM 1 EACH TAB PO SCH (21:08)
[2022-11-16] MEDS: AMITRIPTYLINE HCL 25 MG TAB PO SCH (21:09)
[2022-11-17 07:02] LABS: Glucose,Whole Blood 193 mg/dL (70-110)
[2022-11-17] MEDS: INSULIN ASPART (NovoLOG) 100 UNIT/ML VIAL SQ SCH ×4 (07:05→21:39)
[2022-11-17] MEDS: PANTOPRAZOLE 40 MG TABLET PO SCH (07:05)
[2022-11-17] MEDS: LACTATED RINGERS 1,000 ML IV SCH (10:10)
[2022-11-17] MEDS: BISOPROLOL-HCTZ 10-6.25 MG 1 EACH TAB PO SCH (10:10)
[2022-11-17] MEDS: prednisoLONE ACETATE 1% OPHTH DROPS 5 ML BTL BOTH EYES SCH ×2 (10:10→21:40)
[2022-11-17] MEDS: ASPIRIN 81 MG PO SCH ×2 (10:10→21:40)
--- NOTE | 2022-11-17 11:00 | P.PN ---
Subjective Progress Note Date: 11/17/22 Hospital course: Patient is a very pleasant 82-year-old female with a past medical history of hypertension, hyperlipidemia, insulin-dependent diabetes mellitus, bariatric surgery, and glaucoma. She presented to the emergency department status post mechanical fall which resulted in an acute intertrochanteric fracture of right femur. Patient was admitted under orthopedic surgery team and we were consulted for presurgical clearance and medical management throughout patient's hospitalization. NSQIP was completed showing a below average score for cardiac complication, serious complication, and . Patient's METS score was also greater than 4. EKG was completed and reviewed showing normal sinus rhythm at 73 bpm with T-wave inversion in septal leads V1 and V2 and no ST abnormalities showing no signs of acute ischemia upon personal review and interpretation. patient was cleared from medical perspective to proceed to surgery without further need for testing. patient underwent closed reduction with intertrochanteric nailing of right hip with Dr. Franks on 11/16/22. Physical exam: Patient seen at bedside this morning. Patient's reports he was called overnight as patient was experiencing some episodes of confusion. Patient's confusion is believed to be secondary to anesthesia received yesterday during orthopedic surgery for right hip repair as well as oral pain medication given just a couple hours prior to onset of confusion. Currently patient is back to her baseline mentation and reports mild postoperative pain but denies having any other complaints or needs at this time. General: non toxic, no distress, appears at stated age Derm: warm, dry Head: atraumatic, normocephalic, symmetric Eyes: EOMI, no lid lag, anicteric sclera Mouth: no lip lesion, mucus membranes moist Cardiovascular: S1S2 reg, no murmur, positive posterior tibial pulse bilateral, Lungs: CTA bilateral, no rhonchi, no rales , no accessory muscle use Abdominal: soft, nontender to palpation, no guarding, no appreciable organomegaly Ext: movement and sensation intact. no gross muscle atrophy, no edema, no contractures. postoperative dressing in place to right lateral hip. Neuro: CN II-XI grossly intact, no focal neuro deficits Psych: Alert, oriented, appropriate affect Assessment and Plan of Care: Acute blood loss anemia, secondary to femur fracture Hypomagnesemia, resolved Right comminuted femoral fracture Mechanical fall. -Patient initially had a 2.4 g drop in hemoglobin from 12 down to 9.6 within 24 hours of hospitalization status post femur fracture. On day 2 of admission patient underwent a closed reduction with intertrochanteric nailing of right hip. Currently hemoglobin is stable at 8.7 at this time with no noted signs of active bleeding, no need for transfusion, however we will monitor closely and transfuse if needed for hemoglobin less than 7. -Morning labs reviewed showing stable acute blood loss anemia with hemoglobin of 8.7 down from 9.6 over the past 24 hours. Status post closed reduction with intertrochanteric nailing of right hip -Management per primary admitting orthopedic surgery team including DVT prophylaxis, pain management, wound/dressing care, weightbearig, and PT/OT -Currently DVT prophylaxis with aspirin 81 mg twice daily. Hypertension -Monitor vital signs and continue daily medication regimen with bisoprolol/hydrochlorothiazide 10/625 mg tablets daily. Currently blood pressure stable 127/83 with heart rate of 87. Hyperlipidemia -Patient to continue with atorvastatin 20 mg nightly. Insulin-dependent diabetes mellitus -Blood glucose levels ranging from 103 to 223 over the past 24 hours. Continue glycemic protocol with NovoLog sliding scale. Thank you for allowing us to participate in the care of this pleasant patient. Do not hesitate to contact us with questions. Someone can be reached from the [facility] hospitalist group all hours of the day at [phone] or via [email or web address]. I reviewed the documentation as provided by the ERON above, who is the original author of this note. I agree with the documented assessment and plan, with the following changes: none Objective - Vital Signs Vital signs: Vital Signs Temp 98.4 F 11/17/22 02:00 Pulse 87 11/17/22 02:00 Resp 18 11/17/22 02:00 BP 127/83 11/17/22 02:00 Pulse Ox 97 11/17/22 02:00 FiO2 Intake & Output 11/16/22 11/17/22 11/17/22 18:59 06:59 18:59 Intake Total 1550 Output Total 800 800 Balance 750 -800 Intake: IV 1550 Output: Urine 700 800 Estimated Blood Loss 100 Other: Voiding Method Indwelling Catheter Indwelling Catheter - Labs CBC & Chem 7: 11/17/22 12:11 11/16/22 04:21 Labs: Abnormal Lab Results - Last 24 Hours (Table) 11/16/22 11/16/22 11/16/22 Range/Units 04:21 04:21 13:37 RBC 3.43 L (4.10-5.20) X 10*6/uL Hgb 9.6 L (12.0-15.0) g/dL Hct 31.6 L (37.2-46.3) % MCHC 30.4 L (32.0-37.0) g/dL Lymphocytes # (1.0-4.8) k/uL Est GFR (CKD-EPI)NonAf 52.8 L (60.0-200.0) Glucose 133 H (70-110) mg/dL POC Glucose (mg/dL) 136 H (70-110) mg/dL Calcium 8.4 L (8.7-10.3) mg/dL Magnesium 2.6 H (1.5-2.4) mg/dL 11/16/22 11/16/22 11/16/22 Range/Units 14:56 16:50 20:08 RBC 3.26 L (4.10-5.20) X 10*6/uL Hgb 9.6 L D (12.0-15.0) g/dL Hct 29.3 L (37.2-46.3) % MCHC (32.0-37.0) g/dL Lymphocytes # 0.8 L (1.0-4.8) k/uL Est GFR (CKD-EPI)NonAf (60.0-200.0) Glucose (70-110) mg/dL POC Glucose (mg/dL) 183 H 223 H (70-110) mg/dL Calcium (8.7-10.3) mg/dL Magnesium (1.5-2.4) mg/dL 11/17/22 Range/Units 07:00 RBC (4.10-5.20) X 10*6/uL Hgb (12.0-15.0) g/dL Hct (37.2-46.3) % MCHC (32.0-37.0) g/dL Lymphocytes # (1.0-4.8) k/uL Est GFR (CKD-EPI)NonAf (60.0-200.0) Glucose (70-110) mg/dL POC Glucose (mg/dL) 193 H (70-110) mg/dL Calcium (8.7-10.3) mg/dL Magnesium (1.5-2.4) mg/dL
[2022-11-17 11:09] LABS: Glucose,Whole Blood 224 mg/dL (70-110)
--- NOTE | 2022-11-17 11:22 | P.PN ---
Subjective Progress Note Date: 11/17/22 Principal diagnosis: Intertrochanteric/subtrochanteric fracture right hip. Status post closed reduction with insertion of long IT nail right hip. This is an 82-year-old female who is postoperative day #1 status post close reduction with insertion of long IT nail right hip. The patient is doing well from an orthopedic standpoint. She has no new complaints or concerns today. S he reports no nausea, vomiting or diarrhea. Vital signs are stable. Objective - Vital Signs Vital signs: Vital Signs Temp 98.9 F 11/17/22 08:00 Pulse 98 11/17/22 08:00 Resp 16 11/17/22 08:00 BP 175/89 11/17/22 08:00 Pulse Ox 93 L 11/17/22 08:00 FiO2 Intake & Output 11/16/22 11/17/22 11/17/22 18:59 06:59 18:59 Intake Total 1550 Output Total 800 800 Balance 750 -800 Intake: IV 1550 Output: Urine 700 800 Estimated Blood Loss 100 Other: Voiding Method Indwelling Catheter Indwelling Catheter - Exam This is an 82-year-old female in no acute distress. She is alert and oriented 3. Exam of the right hip reveals that her dressing is clean, dry and intact. She has full foot and ankle motion without difficulty or pain. Neurovascular status to the lower extremity is intact. - Labs CBC & Chem 7: 11/16/22 14:56 11/16/22 04:21 Labs: Abnormal Lab Results - Last 24 Hours (Table) 11/16/22 11/16/22 11/16/22 Range/Units 13:37 14:56 16:50 RBC 3.26 L (3.80-5.40) m/uL Hgb 9.6 L D (11.4-16.0) gm/dL Hct 29.3 L (34.0-46.0) % Lymphocytes # 0.8 L (1.0-4.8) k/uL POC Glucose (mg/dL) 136 H 183 H (70-110) mg/dL 11/16/22 11/17/22 11/17/22 Range/Units 20:08 07:00 11:07 RBC (3.80-5.40) m/uL Hgb (11.4-16.0) gm/dL Hct (34.0-46.0) % Lymphocytes # (1.0-4.8) k/uL POC Glucose (mg/dL) 223 H 193 H 224 H (70-110) mg/dL Assessment and Plan (1) Closed right hip fracture Current Visit: Yes Status: Acute Code(s): S72.001A - FRACTURE OF UNSP PART OF NECK OF RIGHT FEMUR, INIT SNOMED Code(s): 260215402 (2) Closed comminuted intertrochanteric fracture of right femur Current Visit: Yes Status: Acute Code(s): S72.141A - DISPLACED INTERTROCH ANTERIC FRACTURE OF RIGHT FEMUR, INIT SNOMED Code(s): 737667562 (3) Fall Current Visit: Yes Status: Acute Code(s): W19.XXXA - UNSPECIFIED FALL, INITIAL ENCOUNTER SNOMED Code(s): 8879810 (4) Diabetes Current Visit: No Status: Acute Code(s): E11.9 - TYPE 2 DIABETES MELLITUS WITHOUT COMPLICATIONS SNOMED Code(s): 11812385 Plan: The clinical findings are discussed with the patient. She will begin with physical therapy today. We are planning discharge to inpatient rehab when cleared medically and placement is arranged.
[2022-11-17] MEDS: HYDROcodone/APAP 5-325MG 1 EACH TAB PO PRN ×2 (12:35→18:19)
[2022-11-17 12:47] LABS: HCT 26.2 % (34.0-46.0); HGB 8.7 gm/dL (11.4-16.0); MCH 28.5 pg (25.0-35.0); MCHC 33.3 g/dL (31.0-37.0); MCV 85.5 fL (80.0-100.0); Platelet Count 212 k/uL (150-450); RBC 3.07 m/uL (3.80-5.40); RDW 12.7 % (11.5-15.5); WBC 5.1 k/uL (3.8-10.6)
[2022-11-17] MEDS ORDERED: ACETAMINOPHEN IV (For NPO) 1,000 MG in EMPTY BAG 1 BAG IVPB SCH (14:00)
--- NOTE | 2022-11-17 15:44 | P.OP ---
Date of Procedure: 11/16/22 Preoperative Diagnosis: Right hip intertrochanteric fracture, with subtrochanteric extension Postoperative Diagnosis: same Procedure(s) Performed: Right hip cephalomedulary nail Implants: Richar, Gamma nail 11 x 340mm 90mm lag screw 32.5 mm distal screw Anesthesia: spinal Surgeon: Christine Franks Graphic Artist #1: Rayna Fuller Estimated Blood Loss (ml): 100 Pathology: none sent Condition: stable Disposition: PACU Indications for Procedure: Pt had a ground level fall sustaining an unstable intertrochanteric fracture Description of Procedure: The patient, operative extremity, and procedure were identified in the preop holding area. After informed consent was obtained, the patient was brought back to the OR. Patient recieved a spinal block and was moved to the Zhane table. The hip was reduced with the aid of the traction table. The leg was then prepped and draped in normal sterile fashion. A time out was performed. A 5cm incision prox and posterior to the greater trochanter was made. The guide wire was introduced with the aid of the awl into the starting point on the tip of the greater trochanter in line with the femur. This was confirmed on orthogonal views. The wire was advanced. The opening reamer was used over the guidewire. The reamer and the guide wire was removed. A ball tip wire was then inserted into the femur. Rayna's skilled assistance was necessary to hold reduction and manage the guide wire during reaming. Intramedullary placement was confirmed on orthoganal views. The wire was advanced to the top of the patella and the measuring device showed that a 340mm nail would be appropriate. Serial reamers up to a 13mm diameter were then utilized over the wire. The nail was then attached to the jig and inserted into the femur to the appropriate depth. The cephalomedullary guide wire was inserted using the tripple sleeve canulas. The placement of the wire was center center on AP and lateral views and advance to within 5mm of the articular surface. This was m easured as 90mm and the cannulated drill was then used. A 90mm lag screw was selected and inserted. tip to apex was less than 25mm. The jig was removed and attention turned to the distal screw. Using the perfect [place] technique, a 37.5mm screw was inserted into the static hole of the nail. Final views demonstrated acceptable alignment of the fracture with good hardware placement. The wounds were closed with 2.0 vicryl, 4.0 monocryl, and skin glue. Wounds were dressed with gauze and tegaderm. Patient was aroused by the anesthesia team and brought back to PACU in stable condition.
[2022-11-17 16:19] LABS: Glucose,Whole Blood 218 mg/dL (70-110)
[2022-11-17 19:53] LABS: Glucose,Whole Blood 272 mg/dL (70-110)
[2022-11-17] MEDS: GABAPENTIN 100 MG CAP PO PRN (20:03)
[2022-11-17] MEDS: KETOROLAC 0.5% OPHTH DROPS 5 ML BTL LEFT EYE SCH (21:40)
[2022-11-17] MEDS: ATORVASTATIN 20 MG TAB PO SCH (21:40)
[2022-11-17] MEDS: SENNOSIDES-DOCUSATE SODIUM 1 EACH TAB PO SCH (21:40)
[2022-11-17] MEDS: AMITRIPTYLINE HCL 25 MG TAB PO SCH (21:41)
[2022-11-17] MEDS: ACETAMINOPHEN IV (For NPO) 1,000 MG in EMPTY BAG 1 BAG IVPB SCH (21:41)
[2022-11-18] MEDS: ACETAMINOPHEN IV (For NPO) 1,000 MG in EMPTY BAG 1 BAG IVPB SCH ×2 (05:02→09:44)
[2022-11-18 06:07] LABS: Glucose,Whole Blood 167 mg/dL (70-110)
[2022-11-18] MEDS: PANTOPRAZOLE 40 MG TABLET PO SCH (06:44)
[2022-11-18] MEDS: INSULIN ASPART (NovoLOG) 100 UNIT/ML VIAL SQ SCH ×4 (06:44→21:20)
[2022-11-18] MEDS: HYDROcodone/APAP 5-325MG 1 EACH TAB PO PRN ×3 (09:18→21:10)
[2022-11-18 09:20] LABS: HCT 25.3 % (37.2-46.3); MCH 28.4 pg (27.0-32.0); MCHC 31.6 g/dL (32.0-37.0); MCV 89.7 fL (80.0-97.0); Mean Platelet Volume 9.7 fL (9.5-12.2); NRBC Per 100 WBC 0 /100 WBCS (0.0-0.0); Platelet Count 202 X 10*3/uL (140-440); RBC 2.82 X 10*6/uL (4.10-5.20); RDW 12.7 % (11.5-14.5); WBC 6.08 X 10*3/uL (4.50-10.00)
[2022-11-18 09:32] LABS: Magnesium 1.5 mg/dL (1.5-2.4)
[2022-11-18 09:36] LABS: African American GFR (CKD) 54.5 (60.0-200.0); Albumin/Globulin Ratio 1.43 (1.60-3.17); Anion Gap 7.7 mmol/L (10.00-18.00); BUN/Creat Ratio 14.18 Ratio (12.00-20.00); Blood Urea Nitrogen 15.6 mg/dL (9.0-27.0); Calcium 8.6 mg/dL (8.7-10.3); Carbon Dioxide 33.3 mmol/L (20.0-27.5); Globulin 2.1 g/dL (1.6-3.3); Potassium 3.8 mmol/L (3.5-5.5); Total Bilirubin 0.4 mg/dL (0.30-1.20); Total Protein 5.1 g/dL (6.2-8.2)
[2022-11-18] MEDS: KETOROLAC 0.5% OPHTH DROPS 5 ML BTL LEFT EYE SCH ×2 (09:44→21:13)
[2022-11-18] MEDS: BISOPROLOL-HCTZ 10-6.25 MG 1 EACH TAB PO SCH (09:44)
[2022-11-18] MEDS: ASPIRIN 81 MG PO SCH ×2 (09:44→21:10)
[2022-11-18] MEDS: prednisoLONE ACETATE 1% OPHTH DROPS 5 ML BTL BOTH EYES SCH ×2 (09:44→21:11)
[2022-11-18 11:26] LABS: Glucose,Whole Blood 273 mg/dL (70-110)
[2022-11-18 12:59] LABS: Basophils % (A) 0 %; Eosinophils # (A) 0.1 k/uL (0-0.7); Eosinophils % (A) 1 %; HCT 27.1 % (34.0-46.0); HGB 8.9 gm/dL (11.4-16.0); Lymphocytes # (A) 0.9 k/uL (1.0-4.8); Lymphocytes % (A) 12 %; MCH 28.9 pg (25.0-35.0); MCHC 32.8 g/dL (31.0-37.0); Mean Platelet Volume 7.9; Monocytes # (A) 0.3 k/uL (0-1.0); Monocytes % (A) 4 %; Neutrophils # (A) 5.8 k/uL (1.3-7.7); Neutrophils % (A) 81 %; Platelet Count 251 k/uL (150-450); RBC 3.08 m/uL (3.80-5.40); RDW 13.3 % (11.5-15.5); WBC 7.2 k/uL (3.8-10.6)
--- NOTE | 2022-11-18 13:11 | P.PN ---
Subjective Progress Note Date: 11/18/22 Principal diagnosis: Intertrochanteric/subtrochanteric fracture right hip. Status post closed reduction with insertion of long IT nail right hip. This is an 82-year-old female who is postoperative day #2 status post close reduction with insertion of long IT nail right hip. The patient is doing well from an orthopedic standpoint. She has no new complaints or concerns today. S he reports no nausea, vomiting or diarrhea. Vital signs are stable. Objective - Vital Signs Vital signs: Vital Signs Temp 97.7 F 11/18/22 07:00 Pulse 78 11/18/22 07:00 Resp 16 11/18/22 07:00 BP 99/63 11/18/22 07:00 Pulse Ox 98 11/18/22 07:00 FiO2 Intake & Output 11/17/22 11/18/22 11/18/22 18:59 06:59 18:59 Intake Total 100 Output Total 1250 300 Balance -1150 -300 Intake: Intake, IV Titration 100 Amount ACETAMINOPHEN IV (For NPO 100 ) 1,000 mg In Empty Bag 1 bag @ 400 mls/hr IVPB Q6H [facility] Rx#:[id number] Output: Urine 1250 300 Other: Voiding Method Indwelling Catheter Indwelling Catheter - Exam This is an 82-year-old female in no acute distress. She is alert and oriented 3. Family is present at bedside. Exam of the right hip reveals that her dressing is clean, dry and intact. She has full foot and ankle motion without difficulty or pain. Neurovascular status to the lower extremity is intact. - Labs CBC & Chem 7: 11/18/22 12:34 11/18/22 05:39 Labs: Abnormal Lab Results - Last 24 Hours (Table) 11/17/22 11/17/22 11/18/22 Range/Units 16:17 19:51 05:39 RBC 2.82 L (4.10-5.20) X 10*6/uL Hgb 8.0 L (12.0-15.0) g/dL Hct 25.3 L (37.2-46.3) % MCHC 31.6 L (32.0-37.0) g/dL Lymphocytes # (1.0-4.8) k/uL Carbon Dioxide (20.0-27.5) mmol/L Anion Gap (10.00-18.00) mmol/L Est GFR (CKD-EPI)AfAm (60.0-200.0) Est GFR (CKD-EPI)NonAf (60.0-200.0) Glucose (70-110) mg/dL POC Glucose (mg/dL) 218 H 272 H (70-110) mg/dL Calcium (8.7-10.3) mg/dL Total Protein (6.2-8.2) g/dL Albumin (3.8-4.9) g/dL Albumin/Globulin Ratio (1.60-3.17) g/dL 11/18/22 11/18/22 11/18/22 Range/Units 05:39 06:05 11:25 RBC (4.10-5.20) X 10*6/uL Hgb (12.0-15.0) g/dL Hct (37.2-46.3) % MCHC (32.0-37.0) g/dL Lymphocytes # (1.0-4.8) k/uL Carbon Dioxide 33.3 H (20.0-27.5) mmol/L Anion Gap 7.70 L (10.00-18.00) mmol/L Est GFR (CKD-EPI)AfAm 54.5 L (60.0-200.0) Est GFR (CKD-EPI)NonAf 47.0 L (60.0-200.0) Glucose 159 H (70-110) mg/dL POC Glucose (mg/dL) 167 H 273 H (70-110) mg/dL Calcium 8.6 L (8.7-10.3) mg/dL Total Protein 5.1 L (6.2-8.2) g/dL Albumin 3.0 L (3.8-4.9) g/dL Albumin/Globulin Ratio 1.43 L (1.60-3.17) g/dL 11/18/22 Range/Units 12:34 RBC 3.08 L (4.10-5.20) X 10*6/uL Hgb 8.9 L (12.0-15.0) g/dL Hct 27.1 L (37.2-46.3) % MCHC (32.0-37.0) g/dL Lymphocytes # 0.9 L (1.0-4.8) k/uL Carbon Dioxide (20.0-27.5) mmol/L Anion Gap (10.00-18.00) mmol/L Est GFR (CKD-EPI)AfAm (60.0-200.0) Est GFR (CKD-EPI)NonAf (60.0-200.0) Glucose (70-110) mg/dL POC Glucose (mg/dL) (70-110) mg/dL Calcium (8.7-10.3) mg/dL Total Protein (6.2-8.2) g/dL Albumin (3.8-4.9) g/dL Albumin/Globulin Ratio (1.60-3.17) g/dL Assessment and Plan (1) Closed right hip fracture Current Visit: Yes Status: Acute Code(s): S72.001A - FRACTURE OF UNSP PART OF NECK OF RIGHT FEMUR, INIT SNOMED Code(s): 004748579 (2) Closed comminuted intertrochanteric fracture of right femur Current Visit: Yes Status: Acute Code(s): S72.141A - DISPLACED INTERTROCHANTERIC FRACTURE OF RIGHT FEMUR, INIT SNOMED Code(s): 573367500 (3) Fall Current Visit: Yes Status: Acute Code(s): W19.XXXA - UNSPECIFIED FALL, INITIAL ENCOUNTER SNOMED Code(s): 7931491 (4) Diabetes Current Visit: No Status: Acute Code(s): E11.9 - TYPE 2 DIABETES MELLITUS WITHOUT COMPLICATIONS SNOMED Code(s): 38251699 Plan: The clinical findings are discussed with the patient. She will begin with physical therapy today. We are planning discharge to inpatient rehab when cleared medically and placement is arranged.
--- NOTE | 2022-11-18 13:22 | P.PN ---
Subjective Progress Note Date: 11/18/22 Hospital course: Patient is a very pleasant 82-year-old female with a past medical history of hypertension, hyperlipidemia, insulin-dependent diabetes mellitus, bariatric surgery, and glaucoma. She presented to the emergency department status post mechanical fall which resulted in an acute intertrochanteric fracture of right femur. Patient was admitted under orthopedic surgery team and we were consulted for presurgical clearance and medical management throughout patient's hospitalization. NSQIP was completed showing a below average score for cardiac complication, serious complication, and . Patient's METS score was also greater than 4. EKG was completed and reviewed showing normal sinus rhythm at 73 bpm with T-wave inversion in septal leads V1 and V2 and no ST abnormalities showing no signs of acute ischemia upon personal review and interpretation. patient was cleared from medical perspective to proceed to surgery without further need for testing. patient underwent closed reduction with intertrochanteric nailing of right hip with Dr. Franks on 11/16/22. Physical exam: Patient seen at bedside this morning. Patient has been again at bedside this morning. Patient and deny any further episodes of confusion. Patient does report pain to right hip and thigh. Tentative plan is for discharge to rehab. General: non toxic, no distress, appears at stated age Derm: warm, dry Head: atraumatic, normocephalic, symmetric Eyes: EOMI, no lid lag, anicteric sclera Mouth: no lip lesion, mucus membranes moist Cardiovascular: S1S2 reg, no murmur, positive posterior tibial pulse bilateral, Lungs: CTA bilateral, no rhonchi, no rales , no accessory muscle use Abdominal: soft, nontender to palpation, no guarding, no appreciable organomegaly Ext: movement and sensation intact. no gross muscle atrophy, no edema, no contractures. postoperative dressing in place to right lateral hip. Neuro: CN II-XI grossly intact, no focal neuro deficits Psych: Alert, oriented, appropriate affect Assessment and Plan of Care: Acute blood loss anemia, secondary to femur fracture Hypomagnesemia Right comminuted femoral fracture Mechanical fall. -Morning labs reviewed CBC revealing hemoglobin of 8.0 and hematocrit of 25.3. BMP showing hypercarbia with bicarb of 33.3 and anion gap of 7.70. Magnesium remains low at 1.5. -Currently hemoglobin is stable at 8.0 at this time with no noted signs of active bleeding, no need for transfusion, however we will monitor closely and transfuse if needed for hemoglobin less than 7. -Orders placed for magnesium sulfate 3 g IVPB 1 dose. -Orders also placed for repeat morning CBC and magnesium level to follow-up and continue to monitor closely hemoglobin and magnesium levels. Additional orders to be placed based upon these findings. Status post closed reduction with intertrochanteric nailing of right hip -Management per primary admitting orthopedic surgery team including DVT prophylaxis, pain management, wound/dressing care, weightbearig, and PT/OT -Currently DVT prophylaxis with aspirin 81 mg twice daily. Hypertension -Monitor vital signs and continue daily medication regimen with bisoprolol/hydrochlorothiazide 10/625 mg tablets daily. Currently blood pressure stable but running soft at 99/63 with a heart rate of 78. 127/83 with heart rate of 87. Hyperlipidemia -Patient to continue with atorvastatin 20 mg nightly. Insulin-dependent diabetes mellitus -Blood glucose levels ranging from 167 to 273 over the past 24 hours. Continue glycemic protocol with NovoLog sliding scale. Thank you for allowing us to participate in the care of this pleasant patient. Do not hesitate to contact us with questions. Someone can be reached from the [facility] hospitalist group all hours of the day at [phone] or via [email or web address]. I reviewed the documentation as provided by the ERON above, who is the original author of this note. I agree with the documented assessment and plan, with the following changes: none Objective - Vital Signs Vital signs: Vital Signs Temp 97.7 F 11/18/22 07:00 Pulse 78 11/18/22 07:00 Resp 16 11/18/22 07:00 BP 99/63 11/18/22 07:00 Pulse Ox 98 11/18/22 07:00 FiO2 Intake & Output 11/17/22 11/18/22 11/18/22 18:59 06:59 18:59 Intake Total 100 Output Total 1250 300 Balance -1150 -300 Intake: Intake, IV Titration 100 Amount ACETAMINOPHEN IV (For NPO 100 ) 1,000 mg In Empty Bag 1 bag @ 400 mls/hr IVPB Q6H [facility] Rx#:[id number] Output: Urine 1250 300 Other: Voiding Method Indwelling Catheter Indwelling Catheter - Labs CBC & Chem 7: 11/19/22 06:02 11/19/22 06:02 Labs: Abnormal Lab Results - Last 24 Hours (Table) 11/17/22 11/17/22 11/17/22 Range/Units 11:07 12:11 16:17 RBC 3.07 L (3.80-5.40) m/uL Hgb 8.7 L (11.4-16.0) gm/dL Hct 26.2 L (34.0-46.0) % POC Glucose (mg/dL) 224 H 218 H (70-110) mg/dL 11/17/22 11/18/22 Range/Units 19:51 06:05 RBC (3.80-5.40) m/uL Hgb (11.4-16.0) gm/dL Hct (34.0-46.0) % POC Glucose (mg/dL) 272 H 167 H (70-110) mg/dL
[2022-11-18] MEDS: GABAPENTIN 100 MG CAP PO PRN (13:58)
[2022-11-18] MEDS: MAGNESIUM SULFATE-D5W PMX 1 GM in DEXTROSE/WATER 1 100ML.BAG IVPB SCH ×3 (14:06→21:10)
[2022-11-18 16:34] LABS: Glucose,Whole Blood 284 mg/dL (70-110)
[2022-11-18 19:52] LABS: Glucose,Whole Blood 253 mg/dL (70-110)
[2022-11-18] MEDS: ATORVASTATIN 20 MG TAB PO SCH (21:10)
[2022-11-18] MEDS: SENNOSIDES-DOCUSATE SODIUM 1 EACH TAB PO SCH (21:10)
[2022-11-18] MEDS: AMITRIPTYLINE HCL 25 MG TAB PO SCH (21:11)
[2022-11-19 06:02] LABS: Glucose,Whole Blood 182 mg/dL (70-110)
[2022-11-19] MEDS: INSULIN ASPART (NovoLOG) 100 UNIT/ML VIAL SQ SCH ×2 (06:25→12:48)
[2022-11-19] MEDS: PANTOPRAZOLE 40 MG TABLET PO SCH (06:25)
[2022-11-19] MEDS: HYDROcodone/APAP 5-325MG 1 EACH TAB PO PRN ×2 (06:27→12:47)
[2022-11-19 09:47] LABS: African American GFR (CKD) 69.5 (60.0-200.0); Anion Gap 12.3 mmol/L (10.00-18.00); BUN/Creat Ratio 20.11 Ratio (12.00-20.00); Blood Urea Nitrogen 18.1 mg/dL (9.0-27.0); Calcium 8.6 mg/dL (8.7-10.3); Carbon Dioxide 29.7 mmol/L (20.0-27.5); Magnesium 1.9 mg/dL (1.5-2.4); Potassium 3.6 mmol/L (3.5-5.5)
[2022-11-19 10:15] LABS: HCT 24.5 % (37.2-46.3); MCH 28.8 pg (27.0-32.0); MCHC 32.7 g/dL (32.0-37.0); MCV 88.1 fL (80.0-97.0); Mean Platelet Volume 9.4 fL (9.5-12.2); NRBC Per 100 WBC 0 /100 WBCS (0.0-0.0); Platelet Count 281 X 10*3/uL (140-440); RBC 2.78 X 10*6/uL (4.10-5.20); RDW 12.6 % (11.5-14.5)
[2022-11-19] MEDS: ASPIRIN 81 MG PO SCH (10:23)
[2022-11-19] MEDS: BISOPROLOL-HCTZ 10-6.25 MG 1 EACH TAB PO SCH (10:23)
[2022-11-19] MEDS: prednisoLONE ACETATE 1% OPHTH DROPS 5 ML BTL BOTH EYES SCH (10:23)
[2022-11-19] MEDS: KETOROLAC 0.5% OPHTH DROPS 5 ML BTL LEFT EYE SCH (10:24)
[2022-11-19 11:43] LABS: Glucose,Whole Blood 257 mg/dL (70-110)
--- NOTE | 2022-11-19 13:44 | P.DS ---
Providers Date of admission: 11/15/22 03:21 Expected date of discharge: 11/19/22 Attending physician: Christine Franks DO Consults: 11/15/22 03:21 Consult Physician Routine Consulting Provider: Patience Bravo Consult Reason/Comments: medical management Do you want consulting provider notified?: Already Contacted Primary care physician: Nicolette Ramírez - Discharge Diagnosis(es) (1) Closed comminuted intertrochanteric fracture of right femur Current Visit: Yes Status: Acute (2) Closed right hip fracture Current Visit: Yes Status: Acute (3) Fall Current Visit: Yes Status: Acute Hospital Course: This is an 82-year-old female who sustained a fracture of her right hip after a fall. The patient presented for evaluation in the emergency room. After discussion and consideration patient elects to proceed with right hip cephalomedullary nail. The patient is seen preoperatively by Dr. Franks and medically cleared for surgery by internal medicine. Patient is admitted to [facility] on 11/15/2022 and right hip cephalomedullary nail is performed on 11/16/2022. The procedure is performed without complication or sequelae. The patient is doing well postoperatively. Labs and vital signs are stable on day of discharge. On day of discharge patient's hip incision is healing well. There is minimal erythema. There is no drainage noted at this time. There is minimal soft tissue swelling to the hip and thigh. Patient has full foot and ankle motion without difficulty or pain. Calf is soft and nontender to palpation. Neurovascular status to the right lower extremity is intact. Patient is discharged to rehab in good condition. Please see med rec for accurate list of home medications. Patient Condition at Discharge: Stable Plan - Discharge Summary Discharge Rx Participant: No New Discharge Prescriptions: New Aspirin [Adult Low Dose Aspirin EC] 81 mg PO BID #1 tab HYDROcodone/APAP 5-325MG [[place] 5] 1 each PO Q6HR PRN #28 tab PRN Reason: Pain No Action Bisoprolol-Hctz 10-6.25 mg [Ziac 10-6.25 MG] 1 tab PO DAILY Lansoprazole 30 mg PO DAILY Amitriptyline HCl [Elavil] 75 mg PO HS Insulin Glargine,Hum.rec.anlog [Lantus Solostar] 6 - 20 unit SQ HS PRN PRN Reason: Blood Sugar - High Diphenoxylate HCl/Atropine [Lomotil 2.5-0.025 mg Tablet] 1 - 2 tab PO QID PRN PRN Reason: Diarrhea Atorvastatin [Lipitor] 20 mg PO DAILY Prednisolone Acetate/Pf [Prednisolone Acet 1% Eye Drop] 1 drop LEFT EYE BID metFORMIN HCL ER [Glucophage XR] 500 mg PO BID Psyllium Husk [Metamucil] 0.4 gm PO DAILY Gabapentin [Neurontin] 100 mg PO TID PRN PRN Reason: Pain Ketorolac 0.5% Ophth Soln [Acular 0.5%] 1 drops LEFT EYE BID Vitamin B-12(Unknown Dose) 1 tab PO DAILY Dulaglutide [Trulicity] 1.5 mg SQ TU Discharge Medication List Amitriptyline HCl [Elavil] 75 mg PO HS 07/06/14 [History] Bisoprolol-Hctz 10-6.25 mg [Ziac 10-6.25 MG] 1 tab PO DAILY 07/06/14 [History] Lansoprazole 30 mg PO DAILY 07/06/14 [History] Insulin Glargine,Hum.rec.anlog [Lantus Solostar] 6 - 20 unit SQ HS PRN 11/15/15 [History] Atorvastatin [Lipitor] 20 mg PO DAILY 01/30/18 [History] Diphenoxylate HCl/Atropine [Lomotil 2.5-0.025 mg Tablet] 1 - 2 tab PO QID PRN 01/30/18 [History] Dulaglutide [Trulicity] 1.5 mg SQ TU 11/15/22 [History] Gabapentin [Neurontin] 100 mg PO TID PRN 11/15/22 [History] Prednisolone Acetate/Pf [Prednisolone Acet 1% Eye Drop] 1 drop LEFT EYE BID 11/15/22 [History] Psyllium Husk [Metamucil] 0.4 gm PO DAILY 11/15/22 [History] Vitamin B-12(Unknown Dose) 1 tab PO DAILY 11/15/22 [History] metFORMIN HCL ER [Glucophage XR] 500 mg PO BID 11/15/22 [History] Aspirin [Adult Low Dose Aspirin EC] 81 mg PO BID #1 tab 11/17/22 [Rx] HYDROcodone/APAP 5-325MG [[place] 5] 1 each PO Q6HR PRN #28 tab 11/17/22 [Rx] Ketorolac 0.5% Ophth Soln [Acular 0.5%] 1 drops LEFT EYE BID 11/17/22 [History] Follow up Appointment(s)/Referral(s): Christine Franks DO [Doctor of Osteopathic Medicine] - 4 Weeks None,Stated [REFERRING] - 1-2 days Activity/Diet/Wound Care/Special Instructions: May bear weight as tolerated with walker. Keep Tegaderm dressing is intact 1 week postop. May shower. Discharge Disposition: TRANSFER TO SNF/ECF
[2022-11-19 14:19] VITALS: BP 100/57; PULSE 88; RESP 18; TEMP 97.9
--- NOTE | 2022-11-19 15:02 | P.PN ---
Subjective Progress Note Date: 11/19/22 Hospital course: Patient is a very pleasant 82-year-old female with a past medical history of hypertension, hyperlipidemia, insulin-dependent diabetes mellitus, bariatric surgery, and glaucoma. She presented to the emergency department status post mechanical fall which resulted in an acute intertrochanteric fracture of right femur. Patient was admitted under orthopedic surgery team and we were consulted for presurgical clearance and medical management throughout patient's hospitalization. NSQIP was completed showing a below average score for cardiac complication, serious complication, and . Patient's METS score was also greater than 4. EKG was completed and reviewed showing normal sinus rhythm at 73 bpm with T-wave inversion in septal leads V1 and V2 and no ST abnormalities showing no signs of acute ischemia upon personal review and interpretation. patient was cleared from medical perspective to proceed to surgery without further need for testing. patient underwent closed reduction with intertrochanteric nailing of right hip with Dr. Franks on 11/16/22. Physical exam: Patient seen at bedside this morning. Patient has been again at bedside this morning. Patient and deny any further episodes of confusion. Patient does report pain to right hip and thigh. Tentative plan is for discharge to rehab. General: non toxic, no distress, appears at stated age Derm: warm, dry Head: atraumatic, normocephalic, symmetric Eyes: EOMI, no lid lag, anicteric sclera Mouth: no lip lesion, mucus membranes moist Cardiovascular: S1S2 reg, no murmur, positive posterior tibial pulse bilateral, Lungs: CTA bilateral, no rhonchi, no rales , no accessory muscle use Abdominal: soft, nontender to palpation, no guarding, no appreciable organomegaly Ext: movement and sensation intact. no gross muscle atrophy, no edema, no contractures. postoperative dressing in place to right lateral hip. Neuro: CN II-XI grossly intact, no focal neuro deficits Psych: Alert, oriented, appropriate affect Assessment and Plan of Care: Acute blood loss anemia, secondary to femur fracture. Stable. Hypomagnesemia, resolved Right comminuted femoral fracture Mechanical fall. -Morning labs reviewed CBC revealing hemoglobin of 8.0 and hematocrit of 24.5. BMP showing hypercarbia with bicarb of 29.7. Hypomagnesemia resolved with magnesium of 1.9. -Hemoglobin remains stable at 8.0 at this time with no noted signs of active bleeding, no need for transfusion -Patient medically optimized for discharge at this time and stable from medical standpoint for discharge to residential facility once cleared by primary admitting orthopedic surgery team. Status post closed reduction with intertrochanteric nailing of right hip -Management per primary admitting orthopedic surgery team including DVT prophylaxis, pain management, wound/dressing care, weightbearig, and PT/OT -Currently DVT prophylaxis with aspirin 81 mg twice daily. Hypertension -Monitor vital signs and continue daily medication regimen with bisoprolol/hydrochlorothiazide 10/625 mg tablets daily. Currently blood pressure stable but running soft at 106/63. Hyperlipidemia -Patient to continue with atorvastatin 20 mg nightly. Insulin-dependent diabetes mellitus -Blood glucose levels ranging from 167 to 284 over the past 24 hours. Patient to resume Lantus, metformin, and Trulicity Thank you for allowing us to participate in the care of this pleasant patient. Do not hesitate to contact us with questions. Someone can be reached from the [facility] hospitalist group all hours of the day at [phone] or via [facility] [facility]. I reviewed the documentation as provided by the ERON above, who is the original author of this note. I agree with the documented assessment and plan, with the following changes: none Objective - Vital Signs Vital signs: Vital Signs Temp 97.4 F L 11/19/22 07:20 Pulse 104 H 11/19/22 07:20 Resp 17 11/19/22 07:20 BP 106/63 11/19/22 07:20 Pulse Ox 96 11/19/22 08:07 FiO2 21 11/19/22 08:07 Intake & Output 11/18/22 11/19/22 11/19/22 18:59 06:59 18:59 Intake Total 600 120 Output Total 600 Balance 600 -480 Intake: Intake, IV Titration 100 Amount Magnesium Sulfate-D5w Pmx 100 1 gm In Dextrose/Water 1 100ml.bag @ 100 mls/hr IVPB Q1H [facility] Rx#: [id number] Oral 500 120 Output: Urine 600 Other: Voiding Method Indwelling Catheter Bedside Commode # Voids 1 - Labs CBC & Chem 7: 11/19/22 06:02 11/19/22 06:02 Labs: Abnormal Lab Results - Last 24 Hours (Table) 11/18/22 11/18/22 11/18/22 Range/Units 05:39 05:39 11:25 RBC 2.82 L (4.10-5.20) X 10*6/uL Hgb 8.0 L (12.0-15.0) g/dL Hct 25.3 L (37.2-46.3) % MCHC 31.6 L (32.0-37.0) g/dL Lymphocytes # (1.0-4.8) k/uL Carbon Dioxide 33.3 H (20.0-27.5) mmol/L Anion Gap 7.70 L (10.00-18.00) mmol/L Est GFR (CKD-EPI)AfAm 54.5 L (60.0-200.0) Est GFR (CKD-EPI)NonAf 47.0 L (60.0-200.0) Glucose 159 H (70-110) mg/dL POC Glucose (mg/dL) 273 H (70-110) mg/dL Calcium 8.6 L (8.7-10.3) mg/dL Total Protein 5.1 L (6.2-8.2) g/dL Albumin 3.0 L (3.8-4.9) g/dL Albumin/Globulin Ratio 1.43 L (1.60-3.17) g/dL 11/18/22 11/18/22 11/18/22 Range/Units 12:34 16:32 19:51 RBC 3.08 L (4.10-5.20) X 10*6/uL Hgb 8.9 L (12.0-15.0) g/dL Hct 27.1 L (37.2-46.3) % MCHC (32.0-37.0) g/dL Lymphocytes # 0.9 L (1.0-4.8) k/uL Carbon Dioxide (20.0-27.5) mmol/L Anion Gap (10.00-18.00) mmol/L Est GFR (CKD-EPI)AfAm (60.0-200.0) Est GFR (CKD-EPI)NonAf (60.0-200.0) Glucose (70-110) mg/dL POC Glucose (mg/dL) 284 H 253 H (70-110) mg/dL Calcium (8.7-10.3) mg/dL Total Protein (6.2-8.2) g/dL Albumin (3.8-4.9) g/dL Albumin/Globulin Ratio (1.60-3.17) g/dL 11/19/22 Range/Units 06:00 RBC (4.10-5.20) X 10*6/uL Hgb (12.0-15.0) g/dL Hct (37.2-46.3) % MCHC (32.0-37.0) g/dL Lymphocytes # (1.0-4.8) k/uL Carbon Dioxide (20.0-27.5) mmol/L Anion Gap (10.00-18.00) mmol/L Est GFR (CKD-EPI)AfAm (60.0-200.0) Est GFR (CKD-EPI)NonAf (60.0-200.0) Glucose (70-110) mg/dL POC Glucose (mg/dL) 182 H (70-110) mg/dL Calcium (8.7-10.3) mg/dL Total Protein (6.2-8.2) g/dL Albumin (3.8-4.9) g/dL Albumin/Globulin Ratio (1.60-3.17) g/dL
== END 2022-11-19 15:00 | DRG 481 ==
LOC: EC 00:20 → 4SSUR 03:21
PROVIDERS: ADMIT Orthopaedic Surgery Hand Surgery; ATTEND Orthopaedic Surgery Hand Surgery
PROC: 8E0YXBF Computer Assisted Procedure of Lower Extremity, With Fluoroscopy (ICD-10-PCS; 2022-11-16)
PROC: 0QH606Z Insertion of Intramedullary Internal Fixation Device into Right Upper Femur, Open Approach (ICD-10-PCS; principal; 2022-11-17)
DX: S72.141A Displaced intertrochanteric fracture of right femur, initial encounter for closed fracture (principal); D62 Acute posthemorrhagic anemia; W01.0XXA Fall on same level from slipping, tripping and stumbling without subsequent striking against object, initial encounter; E78.5 Hyperlipidemia, unspecified; E87.6 Hypokalemia; S50.811A Abrasion of right forearm, initial encounter; N18.30 Chronic kidney disease, stage 3 unspecified; I12.9 Hypertensive chronic kidney disease with stage 1 through stage 4 chronic kidney disease, or unspecified chronic kidney disease; E11.22 Type 2 diabetes mellitus with diabetic chronic kidney disease; Z79.4 Long term (current) use of insulin; G47.30 Sleep apnea, unspecified; H40.9 Unspecified glaucoma; E83.41 Hypermagnesemia; K21.9 Gastro-esophageal reflux disease without esophagitis; S72.21XA Displaced subtrochanteric fracture of right femur, initial encounter for closed fracture; Z79.84 Long term (current) use of oral hypoglycemic drugs; Z79.899 Other long term (current) drug therapy; Z98.84 Bariatric surgery status
CPT/HCPCS: 36415; 70450; 71045; 72125; 73502; 80048; 80053; 83735; 85025; 85027; 85610; 85730; 86850; 86900; 86901; 90471; 90715; 93005; 94760; 96372; 96374; 96375; 96376; 99285

== ENCOUNTER → 2023-08-14 | Outpatient (CLI) | payer MEDICARE ==
--- NOTE | 2023-08-18 21:48 | MR ---
EXAMINATION TYPE: MR shoulder LT wo con DATE OF EXAM: 08/14/2023 COMPARISON: Outside radiograph 08/12/2023 prior MRI 01/28/2020 HISTORY: 83-year-old female M2 5.512, Left shoulder pain for about 4 years, no known injury. TECHNIQUE: Multiplanar, multisequence imaging of the left shoulder is performed without contrast. FINDINGS: There is moderate tenosynovial fluid along the bicipital groove. The tendon remains normall y situated without retracted tear. Heterogeneous signal of the subscapularis tendon with some intrasubstance tear of the middle third po rtion. Moderate to severe degenerative change AC joint with capsular hypertrophy and degenerative spurring. There is redemonstration of full-thickness tear of the entire supraspinous tendon now measuring 2.5 c m AP by 3.3 cm long. This is in comparison to 1.7 x 3.1 cm, previously. Fluid within the intervening gap communicating with the glenohumeral joint. The subscapularis tendon appears intact. There is a moderate glenohumeral joint effusion with irregular cartilage loss along the superior aspe ct of the humeral head articular surface and loose bodies in the axillary recess measuring up to 8 mm . 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 Degenerative and cord superior and posterior labrum. No Hill-Sachs deformity or os acromiale. Heterogeneous red marrow is present. Moderate fatty infiltration of the supraspinatus muscle belly and minimal fatty streaks within the mcdonnell bscapularis and infraspinatus muscle bellies. Slightly progressed from prior. IMPRESSION: 1. Full-thickness tear of the entire supraspinatus tendon measuring slightly larger than in 2020 now 3.3 x 2.5 cm (versus 3.1 x 1.7 cm, previously). Fluid within the intervening gap and progression to m oderate fatty infiltration of the supraspinatus muscle belly. Findings suggest acute on chronic tear. 2. Subscapularis tendinosis with intrasubstance tear of the middle third portion. The majority of the subscapularis tendon remains intact. Minimal fatty streaks throughout the remainder of the rotator c uff musculature. 3. Subchondral fracture possibly due to AVN along the mid to inferior humeral head articular surface. Suspect unstable fragment measuring 1.5 cm craniocaudal and 1.8 cm AP. Underlying mild glenohumeral joint OA with moderate joint effusion and an 8 mm loose body in the axillary recess. Degenerative and torn superior and posterior labrum. 4. Moderate to severe AC joint OA.
== END | disposition home or self-care (01) ==
LOC: RADMRIMAIN 10:57
PROVIDERS: ATTEND Orthopaedic Surgery
DX: M75.112 Incomplete rotator cuff tear or rupture of left shoulder, not specified as traumatic (principal); M67.814 Other specified disorders of tendon, left shoulder; M19.012 Primary osteoarthritis, left shoulder; M25.412 Effusion, left shoulder

== ENCOUNTER → 2023-10-29 | Outpatient (CLI) | payer MEDICARE ==
[2023-10-29 17:30] LABS: Basophils # (A) 0.04 X 10*3/uL (0.00-0.10); Basophils % (A) 0.6 %; Eosinophils # (A) 0.09 X 10*3/uL (0.04-0.35); Eosinophils % (A) 1.3 %; HCT 40.8 % (37.2-46.3); HGB 12.9 g/dL (12.0-15.0); Lymphocytes # (A) 1.92 X 10*3/uL (0.90-5.00); Lymphocytes % (A) 27.2 %; MCHC 31.6 g/dL (32.0-37.0); MCV 85.4 FL (80.0-97.0); Mean Platelet Volume 9.6 FL (9.5-12.2); Monocytes # (A) 0.41 X 10*3/uL (0.20-1.00); Monocytes % (A) 5.8 %; NRBC Per 100 WBC 0 X 10*3/uL (0.00-0.01); Neutrophils # (A) 4.57 X 10*3/uL (1.80-7.70); Neutrophils % (A) 64.8 %; Platelet Count 318 X 10*3/uL (140-440); RBC 4.78 X 10*6/uL (4.10-5.20); RDW 13.3 % (11.5-14.5); WBC 7.05 X 10*3/uL (4.50-10.00)
[2023-10-29 18:06] LABS: Blood Urea Nitrogen 17.2 mg/dL (9.0-27.0); Calcium 9.4 mg/dL (8.7-10.3); Carbon Dioxide 29.9 mmol/L (21.6-31.8); Chloride 99 mmol/L (96-109); Glucose 205 mg/dL (70-110); Potassium 3.7 mmol/L (3.5-5.5); Sodium 141 mmol/L (135-145)
== END | disposition home or self-care (01) ==
LOC: LABPAT 12:25
PROVIDERS: ATTEND Orthopaedic Surgery
DX: Z01.812 Encounter for preprocedural laboratory examination (principal); M75.42 Impingement syndrome of left shoulder
CPT/HCPCS: 80048; 85025; 93005

== ENCOUNTER 2023-11-05 05:38 | Day surgery (SDC) | payer MEDICARE ==
--- NOTE | 2023-11-04 16:46 | HP ---
HISTORY AND PHYSICAL DATE OF SURGERY: 11/05/2023 Graciela Lord is an 83-year-old patient seen with progressive left shoulder pain. We discussed options regarding treatment. She elected to proceed with left shoulder arthroscopy. Consent was obtained. Preoperative medical clearance was provided. PAST MEDICAL HISTORY: Hypertension, hyperlipidemia, insulin-dependent diabetes. PAST SURGICAL HISTORY: Right shoulder arthroscopy. MEDICATIONS: Her daily medications are, 1. Atorvastatin. 2. Bisoprolol. 3. Lantus insulin. 4. Metformin. 5. Multivitamin. 6. Tylenol. ALLERGIES: None. SOCIAL HISTORY: She denies tobacco use. PHYSICAL EVALUATION OF THE LEFT SHOULDER: Flexion is 90 degrees, abduction is 90 degrees. External rotation is 20 degrees with weakness. She has tenderness along the anterolateral acromion and rotator cuff insertion. Impingement is positive at 80 degrees. Cross-body adduction sign is positive. Drop-arm sign is positive. Distal neurovascular exam is intact. IMAGING STUDIES: Radiographs of left shoulder revealed a type 2 acromion as well as acromioclavicular joint osteoarthritis. MRI of left shoulder revealed rotator cuff tear, acromioclavicular joint osteoarthritis, labral tear. IMPRESSION: 1. Left shoulder impingement with rotator cuff tear. 2. Left shoulder acromioclavicular joint osteoarthritis. 3. Left shoulder labral tear. 4. Hypertension. 5. Hyperlipidemia. 6. Insulin-dependent diabetes. PLAN: Left shoulder arthroscopy with rotator cuff repair, subacromial decompression, Vinod procedure, and debridement of labral tear. MMODL / IJN: [id number] /
[2023-11-05] MEDS ORDERED: droPERidol 5 MG/2 ML VIAL IVP ONE (06:15)
[2023-11-05] MEDS ORDERED: LIDOCAINE 1% (10MG/ML) FOR IV START INTRADERMA PRN (06:15)
[2023-11-05] MEDS: LACTATED RINGERS 1,000 ML IV SCH (06:41)
[2023-11-05] MEDS: MIDAZOLAM 2 MG/2 ML VIAL IVP ONE (06:50)
[2023-11-05] MEDS: ONDANSETRON 4 MG/2 ML VIAL IVP ONE (06:55)
[2023-11-05] MEDS ORDERED: HYDROmorphone 0.5 MG/0.5 ML SYRINGE IVP PRN (07:00)
[2023-11-05 07:21] LABS: Glucose,Whole Blood 187 mg/dL (70-110)
[2023-11-05] MEDS ORDERED: PROPOFOL 10 MG/ML 20 ML VIAL IV ONE (07:27)
[2023-11-05] MEDS ORDERED: ROPIVACAINE 5 MG/ML 30 ML VIAL ONE (07:27)
[2023-11-05] MEDS ORDERED: KETOROLAC 15 MG/ML 1 ML VIAL ONE (07:27)
[2023-11-05] MEDS ORDERED: LIDOCAINE 1% INJ 10MG/ML (20 ML MDV) ONE (07:27)
[2023-11-05] MEDS ORDERED: fentaNYL (PF) 50 MCG/ML 2 ML AMP ONE (07:27)
[2023-11-05] MEDS ORDERED: SUCCINYLCHOLINE CHLORIDE 200 MG/10 ML VIAL IV ONE (07:27)
--- NOTE | 2023-11-05 09:37 | P.OP ---
Date of Procedure: 11/05/23 Preoperative Diagnosis: Left shoulder impingement Postoperative Diagnosis: 1. Left shoulder rotator cuff tear 2. Left shoulder impingement 3. Left shoulder acromioclavicular joint osteoarthritis 4. Left shoulder partial long head biceps tendon tear Procedure(s) Performed: 1. Left shoulder arthroscopic rotator cuff repair 2. Left shoulder arthroscopic subacromial decompression 3. Left shoulder arthroscopic Vinod procedure 4. Left shoulder arthroscopic biceps tenotomy Implants: 2Arthrex 4.75 swivel lock anchors 2Arthrex 5.5 swivel lock anchors Anesthesia: GETA, regional (Interscalene block) Surgeon: Chuck Ortega Outsole Cementer #1: Sriram Parra Estimated Blood Loss (ml): 10 Pathology: none sent Condition: stable Disposition: PACU Indications for Procedure: 83-year-old patient seen with progressive left shoulder pain. After having treatment options discussed, she elected to proceed with arthroscopy. Operative Findings: See description of procedure Description of Procedure: Patient underwent an interscalene block by department of anesthesia. The patient was then taken to the operative suite. The patient underwent a general anesthetic by the department of anesthesia. The patient was placed into a lateral position and secured. There was appropriate padding of the bony prominence. Left shoulder was then prepped and draped in normal sterile orthopedic fashion. We placed the extremity in 10 pounds of longitudinal traction. A posterior incision was now made for a posterior working portal site. The trocar and cannula were inserted into the glenohumeral joint. Arthroscopy was initiated. Spinal needle was now inserted anteriorly, to ascertain the anterior working portal site. An incision was now made in that area, a trocar was inserted followed by a probe. There was partial tearing long head biceps tendon. I performed arthroscopic biceps tenotomy. I noted no significant chondromalacia present. The labrum appeared frayed but stable frayed but stable. Instruments removed from the glenohumeral joint. Utilizing the posterior working portal site, the trocar and cannula were inserted into the subacromial space. Arthroscopy initiated. I made an incision 2 fingerbreadths lateral to the acromion. I introduced my trocar followed by my ArthroCare ablator. I now began ablating thick subacromial bursal tissue, which exposed the undersurface of the anterior acromion. There was diminished subacromial space. There was a very prominent anterior acromion. A motorized bur was introduced and a subacromial decompression was performed. I also excised some osteophytes off the inferior aspect of the distal clavicle. The AC joint was visualized and noted to be fairly arthritic. The motorized bur was introduced in the anterior portal site and a Vinod procedure was performed without difficulty removing 8 mm off the distal clavicle, decompressing the AC joint nicely. I turned my attention to the rotator cuff. There was a 3 cm rot ator cuff tear. I debrided the margins getting down to stable tendon tissue. I introduced my motorized bur and abraded the footprint area, getting some petechial bleeding. I now made an accessory portal site off the lateral aspect of the acromion. I punched 2 holes medial for medial row fixation with the assistance of Cirilo SCHNEIDER carefully tapping the punch with a mallet as I held the punch and the camera. I now introduced both anchors into the pre-punched holes and Cirilo SCHNEIDER tapped them with the mallet as I held anchors and the camera. Cirilo SCHNEIDER now screwed the anchors in place a while I held the anchor guide and camera. All 8 limbs of suture were now passed through good bites of rotator cuff tendon. I now punched 2 holes for lateral row fixation again I held the punch and camera while Cirilo SCHNEIDER used a mallet to tap in the punch. We now passed sutures through both anchors and individually I introduced the anchors into the pre-punch holes I held the anchor guide in position with one hand holding the camera with the other hand while Cirilo SCHNEIDER tensioned the sutures and screwed in the anchors one at a time. All residual suture limbs were now clipped. We had good compression of the tendon along the entire footprint. Instruments now removed from the portal sites. All portal sites were approximated with nylon suture. Sterile dressings were applied fol lowed by a shoulder immobilizer. Sriram SCHNEIDER assisted in this complex case. The patient was awakened, transferred to a bed, and taken to recovery in stable condition.
[2023-11-05 10:00] VITALS: TEMP 97
[2023-11-05 10:07] LABS: Glucose,Whole Blood 119 mg/dL (70-110)
[2023-11-05 11:31] LABS: Glucose,Whole Blood 155 mg/dL (70-110)
--- NOTE | 2023-11-05 12:17 | P.ANPRN ---
Procedure Note - Anesthesia - Nerve Block Performed Left Interscalene Single Time Out Performed: Yes ([id number]) Date of Procedure: 11/05/23 Procedure Start Time: 06:59 Procedure Stop Time: 07:03 Location of Patient: PreOp Indication: Acute Post-Operative Pain, Requested by Surgeon Specifically requested for management of pain by DrNohemy: Chuck Ortega Sedation Type: Sedate with meaningful contact maintained Preparation: Sterile Prep Position: Supine Catheter: None Needle Types: Pajunk Needle Gauge: 21 Ultrasound used to visualize needle placement: Yes Ultrasound used to observe medication spread: Yes Injectate: 0.5% Ropivacaine (see comment for volume) (30cc) Blood Aspirated: No Pain Paresthesia on Injection Noted: No Resistance on Injection: Normal Image Stored and Saved: Yes Events: Uneventful and Well Tolerated
[2023-11-05 12:18] VITALS: BP 123/82; PULSE 75; RESP 18
== END 2023-11-05 11:59 | disposition home or self-care (01) ==
LOC: OR 05:38
PROVIDERS: ATTEND Orthopaedic Surgery
DX: S43.492A Other sprain of left shoulder joint, initial encounter (principal); M75.102 Unspecified rotator cuff tear or rupture of left shoulder, not specified as traumatic; M75.42 Impingement syndrome of left shoulder; M19.012 Primary osteoarthritis, left shoulder; E78.5 Hyperlipidemia, unspecified; E11.9 Type 2 diabetes mellitus without complications; I10 Essential (primary) hypertension; Z79.4 Long term (current) use of insulin; Z79.899 Other long term (current) drug therapy; Z79.84 Long term (current) use of oral hypoglycemic drugs; X58.XXXA Exposure to other specified factors, initial encounter
CPT/HCPCS: 64415; 29824; 29826; 29827; 29828; C1894; C1713; J2250; J0330; J0690; J2405; J2001; J3010; J2795; J1885; J2704

== ENCOUNTER 2024-05-29 00:46 | Inpatient (IN) | payer MEDICARE ==
[2024-05-29] MEDS: MECLIZINE 12.5 MG TAB PO STA (01:33)
[2024-05-29] MEDS: METOCLOPRAMIDE 5 MG/ML 2 ML VIAL IVP STA (01:34)
[2024-05-29 01:57] LABS: Basophils % (A) 0 %; Eosinophils # (A) 0.1 k/uL (0-0.7); Eosinophils % (A) 1 %; HCT 37.1 % (34.0-46.0); HGB 12.3 gm/dL (11.4-16.0); Lymphocytes # (A) 3.9 k/uL (1.0-4.8); Lymphocytes % (A) 34 %; MCH 29.6 pg (25.0-35.0); MCHC 33.1 g/dL (31.0-37.0); MCV 89.4 fL (80.0-100.0); Mean Platelet Volume 8.3; Monocytes # (A) 0.5 k/uL (0-1.0); Monocytes % (A) 4 %; Neutrophils # (A) 6.7 k/uL (1.3-7.7); Neutrophils % (A) 58 %; Platelet Count 270 k/uL (150-450); RBC 4.15 m/uL (3.80-5.40); RDW 14.1 % (11.5-15.5); WBC 11.6 k/uL (3.8-10.6)
--- NOTE | 2024-05-29 02:10 | ED ---
Fall HPI - General Source: EMS, RN notes reviewed Mode of arrival: EMS <Candice La - Last Filed: 05/29/24 04:09> <Bravo Astorgaah Latosha - Last Filed: 05/31/24 02:38> - General Chief Complaint: Fall Stated Complaint: fall Time Seen by Provider: 05/29/24 01:15 - History of Present Illness Initial Comments: 84-year-old female presenting via EMS for fall prior to arrival. States she was in the bathroom tonight and experienced a moment of dizziness, falling from standing position onto posterior. States she landed on her buttocks then fell back and hit the back of her head. Denies loss of consciousness. She does take Eliquis. Patient states she did began to vomit when EMS arrived. Patient did take a marijuana gummy earlier tonight which she believes may could be contributing to her symptoms. Patient states that the dizziness spells are chronic in nature. Patient states she has this dizziness every day and doctors have told her that it is due to vertigo. Patient is currently experiencing pain in the lower back as well as nausea. Denies numbness, tingling, weakness of the legs. Denies bowel or bladder disturbances. Denies chest pain or shortness of breath. Patient is currently being treated for UTI, however patient does not know the name of the medication. (Candice La) - Related Data Home Medications Medication Instructions Recorded Confirmed Amitriptyline HCl [Elavil] 75 mg PO HS 07/06/14 05/29/24 Bisoprolol-Hctz 10-6.25 mg [Ziac 1 tab PO DAILY 07/06/14 05/29/24 10-6.25 MG] Lansoprazole 30 mg PO DAILY 07/06/14 05/29/24 Diphenoxylate HCl/Atropine 2 tab PO QID PRN 01/30/18 05/29/24 [Lomotil 2.5-0.025 mg Tablet] metFORMIN HCL ER [Glucophage XR] 500 mg PO BID 11/15/22 05/29/24 Apixaban [Eliquis] 5 mg PO BID 05/29/24 05/29/24 Betamethasone Dipropionate 1 applic TOPICAL HS 05/29/24 05/29/24 [Betamethasone Dipropionate 0.05%] Donepezil HCl [Aricept] 10 mg PO DAILY 05/29/24 05/29/24 Dulaglutide [Trulicity] 1.5 mg SQ Q7D 05/29/24 05/29/24 Empagliflozin [Jardiance] 10 mg PO DIRECTED 05/29/24 05/29/24 Eszopiclone [Lunesta] 2 mg PO HS PRN 05/29/24 05/29/24 Galantamine HBr [Razadyne ER] 8 mg PO DAILY 05/29/24 05/29/24 Meclizine HCl 50 - 100 mg PO Q4-6H PRN 05/29/24 05/29/24 Sulfamethox-Tmp 800-160Mg [Bactrim 1 tab PO Q12HR 05/29/24 05/29/24 DS 800-160 mg] Previous Rx's Medication Instructions Recorded Gabapentin [Neurontin] 100 mg PO TID PRN #12 cap 11/19/22 Allergies Allergy/AdvReac Type Severity Reaction Status Date / Time No Known Allergies Allergy Verified 05/29/24 10:16 Review of Systems ROS Other: All systems not noted in ROS Statement are negative. <Candice La - Last Filed: 05/29/24 04:09> ROS Other: All systems not noted in ROS Statement are negative. <Delilah Astorga - Last Filed: 05/31/24 02:38> ROS Statement: Those systems with pertinent positive or pertinent negative responses have been documented in the HPI. Past Medical History Past Medical History: Diabetes Mellitus, GERD/Reflux, Hyperlipidemia, Hypertension, Sleep Apnea/CPAP/BIPAP Additional Past Medical History / Comment(s): type 2 diabetes History of Any Multi-Drug Resistant Organisms: None Reported Past Surgical History: Bariatric Surgery Additional Past Surgical History / Comment(s): bariatric sleeve procedure, rt rotator cuff, tummy tuck, cataract surgery 11/05/22 Past Anesthesia/Blood Transfusion Reactions: Postoperative Nausea & Vomiting (PONV) Past Psychological History: No Psychological Hx Reported Smoking Status: Never smoker Past Alcohol Use History: None Reported Past Drug Use History: Marijuana - Past Family History Brother(s) Additional Family Medical History / Comment(s): colon cancer. <Candice La - Last Filed: 05/29/24 04:09> General Exam General appearance: alert, in no apparent distress Head exam: Present: atraumatic, normocephalic, normal inspection Eye exam: Present: normal appearance, PERRL, EOMI. Absent: scleral icterus, conjunctival injection, periorbital swelling ENT exam: Present: normal exam, mucous membranes moist Neck exam: Present: normal inspection. Absent: tenderness, meningismus, lymphadenopathy Respiratory exam: Present: normal lung sounds bilaterally. Absent: respiratory distress, wheezes, rales, rhonchi, stridor Cardiovascular Exam: Present: regular rate, normal rhythm, normal heart sounds. Absent: systolic murmur, diastolic murmur, rubs, gallop, clicks GI/Abdominal exam: Present: soft, normal bowel sounds. Absent: distended, tenderness, guarding, rebound, rigid Extremities exam: Present: normal inspection, full ROM, normal capillary refill. Absent: tenderness, pedal edema, joint swelling, calf tenderness Neurological exam: Present: alert, oriented X3, CN II-XII intact Psychiatric exam: Present: normal affect, normal mood Skin exam: Present: warm, dry, intact, normal color. Absent: rash <Candice La - Last Filed: 05/29/24 04:09> Course Vital Signs 05/29/24 05/29/24 05/29/24 00:47 01:30 03:35 Temperature 97.6 F Pulse Rate 92 84 78 Respiratory 16 18 16 Rate Blood Pressure 160/81 136/69 128/65 O2 Sat by Pulse 92 L 95 94 L Oximetry 05/29/24 05/29/24 05:15 07:30 Temperature 98.0 F Pulse Rate 82 78 Respiratory 18 18 Rate Blood Pressure 131/60 132/68 O2 Sat by Pulse 95 95 Oximetry Medical Decision Making - Lab Data Result diagrams: 05/29/24 01:20 05/29/24 01:20 - EKG Data -: EKG Interpreted by Nh <Candice La - Last Filed: 05/29/24 04:09> - Lab Data Result diagrams: 05/30/24 17:57 05/30/24 05:12 <Delilah Astorga - Last Filed: 05/31/24 02:38> - Medical Decision Making Was pt. sent in by a medical professional or institution (, PA, PERSONAL PROPERTY ASSESSOR, urgent care, hospital, or retirement...) When possible be specific @ -No Did you speak to anyone other than the patient for history (EMS, parent, family, police, friend...)? What history was obtained from this source @ -No Did you review nursing and triage notes (agree or disagree)? Why? @ -I reviewed and agree with nursing and triage notes Were old charts reviewed (outside hosp., previous admission, EMS record, old EKG, old radiological studies, urgent care reports/EKG's, retirement records)? Report findings @ -No old charts were reviewed Differential Diagnosis (chest pain, altered mental status, abdominal pain women, abdominal pain men, vaginal bleeding, weakness, fever, dyspnea, syncope, headache, dizziness, GI bleed, back pain, seizure, CVA, palpatations, mental health, musculoskeletal)? @ -Differential Dizziness: Benign paroxysmal positional Vertigo, Meniere's disease, otitis media, acoustic neuroma, vertebrobasilar insufficiency, cerebellar stroke, encephalitis, hypovolemic, arrhythmia, coronary artery syndrome, anemia, this is not meant to be an all-inclusive list EKG interpreted by me (3pts min.). @ -As above X-rays interpreted by me (1pt min.). @ -X-ray lumbosacral spine pending at time of admission CT interpreted by me (1pt min.). @ -CT head and C-spine pending at time of admission U/S interpreted by me (1pt. min.). @ -None done What testing was considered but not performed or refused? (CT, X-rays, U/S, labs)? Why? @ -None What meds were considered but not given or refused? Why? @ -None Did you discuss the management of the patient with other professionals (professionals i.e. , PA, PERSONAL PROPERTY ASSESSOR, lab, RT, psych nurse, school social worker, inventory control analyst, teacher, radiological defense officer, case resource manager)? Give summary @ -I spoke with Dr. Bravo who accepts admission at this time for dizziness Was smoking cessation discussed for >3mins.? @ -No Was critical care preformed (if so, how long)? @ -No Were there social determinants of health that impacted care today? How? (Homelessness, low income, unemployed, alcoholism, drug addiction, transportation, low edu. Level, literacy, decrease access to med. care, long term, rehab)? @ -No Was there de-escalation of care discussed even if they declined (Discuss DNR or withdrawal of care, Hospice)? DNR status @ -No What co-morbidities impacted this encounter? (DM, HTN, Smoking, COPD, CAD, Cancer, CVA, ARF, Chemo, Hep., AIDS, mental health diagnosis, sleep apnea, morbid obesity)? @ -None Was patient admitted / discharged? Hospital course, mention meds given and route, prescriptions, significant lab abnormalities, going to OR and other pertinent info. @ -Admitted. This is an 84-year-old female presenting for fall prior to arrival. Patient had an episode of dizziness and fell from standing, hitting the back of her head on the ground. Patient is on Eliquis. Patient admits some nausea and vomiting, denies shortness of breath or chest pain. She is endorsing some low back pain from the fall, otherwise no other injuries. Vital signs are within acceptable limits. EKG reveals normal sinus rhythm with no ST changes. Lab work including CBC, CMP, lactic acid, troponin remarkable for lactic acid of 6.2. Urinalysis pending at time of admission. CT head and C- spine and lumbar x-ray interpreted by me reveal no acute process, however final read pending upon admission. Patient was started on IV fluids. I would like to admit patient due to dizziness and abnormal labs. I spoke with Dr. Bravo who accepts admission at this time for dizziness and elevated lactic acid. Case was discussed with my ED attending Dr. Astorga Undiagnosed new problem with uncertain prognosis? @ -No Drug Therapy requiring intensive monitoring for toxicity (Heparin, Nitro, Insulin, Cardizem)? @ -No Were any procedures done? @ -No Diagnosis/symptom? @ -Dizziness, abnormal labs Acute, or Chronic, or Acute on Chronic? @ -Acute Uncomplicated (without systemic symptoms) or Complicated (systemic symptoms)? @ -Complicated Side effects of treatment? @ -No Exacerbation, Progression, or Severe Exacerbation? @ -No Poses a threat to life or bodily function? How? (Chest pain, USA, PA, pneumonia, PE, COPD, DKA, ARF, appy, cholecystitis, CVA, Diverticulitis, Homicidal, Suicidal, threat to staff... and all critical care pts) @ -Possibly (Candice La) - Lab Data Lab Results 05/29/24 05/29/24 05/29/24 Range/Units 01:20 01:20 01:20 WBC 11.6 H (3.8-10.6) k/uL RBC 4.15 (3.80-5.40) m/uL Hgb 12.3 (11.4-16.0) gm/dL Hct 37.1 (34.0-46.0) % MCV 89.4 (80.0-100.0) fL MCH 29.6 (25.0-35.0) pg MCHC 33.1 (31.0-37.0) g/dL RDW 14.1 (11.5-15.5) % Plt Count 270 (150-450) k/uL MPV 8.3 Neutrophils % 58 % Lymphocytes % 34 % Monocytes % 4 % Eosinophils % 1 % Basophils % 0 % Neutrophils # 6.7 (1.3-7.7) k/uL Lymphocytes # 3.9 (1.0-4.8) k/uL Monocytes # 0.5 (0-1.0) k/uL Eosinophils # 0.1 (0-0.7) k/uL Basophils # 0.0 (0-0.2) k/uL Sodium 136 L (137-145) mmol/L Potassium 3.5 (3.5-5.1) mmol/L Chloride 103 (98-107) mmol/L Carbon Dioxide 19 L (22-30) mmol/L Anion Gap 14 mmol/L BUN 27 H (7-17) mg/dL Creatinine 1.60 H (0.52-1.04) mg/dL Est GFR (CKD-EPI)AfAm 34 (>60 ml/min/1.73 sqM) Est GFR (CKD-EPI)NonAf 30 (>60 ml/min/1.73 sqM) Glucose 242 H (74-99) mg/dL Lactic Ac Sepsis Rflx Plasma Lactic Acid Antonio (0.7-2.0) mmol/L Calcium 9.4 (8.4-10.2) mg/dL Total Bilirubin 0.5 (0.2-1.3) mg/dL AST 26 (14-36) U/L ALT 15 (4-34) U/L Alkaline Phosphatase 97 (38-126) U/L Troponin I <0.012 (0.000-0.034) ng/mL Total Protein 7.1 (6.3-8.2) g/dL Albumin 4.4 (3.5-5.0) g/dL 05/29/24 05/29/24 05/29/24 Range/Units 01:20 02:37 05:15 WBC (3.8-10.6) k/uL RBC (3.80-5.40) m/uL Hgb (11.4-16.0) gm/dL Hct (34.0-46.0) % MCV (80.0-100.0) fL MCH (25.0-35.0) pg MCHC (31.0-37.0) g/dL RDW (11.5-15.5) % Plt Count (150-450) k/uL MPV Neutrophils % % Lymphocytes % % Monocytes % % Eosinophils % % Basophils % % Neutrophils # (1.3-7.7) k/uL Lymphocytes # (1.0-4.8) k/uL Monocytes # (0-1.0) k/uL Eosinophils # (0-0.7) k/uL Basophils # (0-0.2) k/uL Sodium (137-145) mmol/L Potassium (3.5-5.1) mmol/L Chloride (98-107) mmol/L Carbon Dioxide (22-30) mmol/L Anion Gap mmol/L BUN (7-17) mg/dL Creatinine (0.52-1.04) mg/dL Est GFR (CKD-EPI)AfAm (>60 ml/min/1.73 sqM) Est GFR (CKD-EPI)NonAf (>60 ml/min/1.73 sqM) Glucose (74-99) mg/dL Lactic Ac Sepsis Rflx Y Plasma Lactic Acid Antonio 6.2 H* 5.7 H* (0.7-2.0) mmol/L Calcium (8.4-10.2) mg/dL Total Bilirubin (0.2-1.3) mg/dL AST (14-36) U/L ALT (4-34) U/L Alkaline Phosphatase (38-126) U/L Troponin I (0.000-0.034) ng/mL Total Protein (6.3-8.2) g/dL Albumin (3.5-5.0) g/dL - EKG Data EKG Comments: EKG reveals normal sinus rhythm with no acute ST changes. Ventricular rate 90 bpm, WI interval 154, QRS duration 100, QT/QTc 387/434 (Candice La) Disposition Time of Disposition: 04:00 <Candice La - Last Filed: 05/29/24 04:09> <Delilah Astorga - Last Filed: 05/31/24 02:38> Clinical Impression: Dizziness Disposition: ADMITTED IP TO THIS HOSP
[2024-05-29 02:12] LABS: ALT 15 U/L (4-34); AST 26 U/L (14-36); African American GFR (CKD) 34 (>60 ml/min/1.73 sqM); Albumin 4.4 g/dL (3.5-5.0); Alkaline Phosphatase 97 U/L (38-126); Anion Gap 14 mmol/L; Blood Urea Nitrogen 27 mg/dL (7-17); Calcium 9.4 mg/dL (8.4-10.2); Carbon Dioxide 19 mmol/L (22-30); Chloride 103 mmol/L (98-107); Glucose 242 mg/dL (74-99); Non-African American GFR(CKD) 30 (>60 ml/min/1.73 sqM); Potassium 3.5 mmol/L (3.5-5.1); Sodium 136 mmol/L (137-145); Total Bilirubin 0.5 mg/dL (0.2-1.3); Total Protein 7.1 g/dL (6.3-8.2)
[2024-05-29] MEDS: SODIUM CHLORIDE 0.9% 1,000 ML IV STA (02:42)
[2024-05-29] MEDS ORDERED: NALOXONE 0.4 MG/ML 1 ML VIAL IV PRN (03:58)
--- NOTE | 2024-05-29 04:02 | CT ---
EXAM: CT Head Without Intravenous Contrast CLINICAL HISTORY: ITS.REASON CT Reason: pain TECHNIQUE: Axial computed tomography images of the head/brain without intravenous contrast. CTDI is 45.2 mGy and DLP is 1005 mGy-cm. This CT exam was performed using one or more of the following dose reduction techniques: automated exposure control, adjustment of the mA and/or kV according to patient size, and/or use of iterative reconstruction technique. COMPARISON: CT Head dated 11/15/22 FINDINGS: Brain: Mild volume loss with prominent ventricles and sulci. Mild periventricular white matter hypoattenuation likely reflects chronic small vessel disease. No hemorrhage. Ventricles: See above. Bones/joints: Unremarkable. No acute fracture. Soft tissues: Unremarkable. Sinuses: Unremarkable as visualized. No acute sinusitis. Mastoid air cells: Unremarkable as visualized. No mastoid effusion. IMPRESSION: No acute findings in the head/brain. EXAM: CT Cervical Spine Without Intravenous Contrast CLINICAL HISTORY: ITS.REASON CT Reason: pain TECHNIQUE: Axial computed tomography images of the cervical spine without intravenous contrast. CTDI is 11.5 mGy and DLP is 317.8 mGy-cm. This CT exam was performed using one or more of the following dose reduction techniques: automated exposure control, adjustment of the mA and/or kV according to patient size, and/or use of iterative reconstruction technique. COMPARISON: No relevant prior studies available. FINDINGS: Vertebrae: Unremarkable. No acute fracture. Discs/spinal canal/neural foramina: Degenerative changes. No severe canal stenosis. Varying degrees of moderate canal stenosis throughout the spine, most severe at C3-4. Soft tissues: Unremarkable. IMPRESSION: No acute findings in the cervical spine.
[2024-05-29] MEDS: SODIUM CHLORIDE 0.9% 1,000 ML IV SCH (04:32)
[2024-05-29] MEDS ORDERED: HYDROcodone/APAP 5-325MG 1 EACH TAB PO PRN (04:47)
[2024-05-29] MEDS ORDERED: DEXTROSE 50% SYRINGE 50 ML IVP PRN ×2 (04:51)
--- NOTE | 2024-05-29 04:58 | P.HPIM ---
History of Present Illness H&P Date: 05/29/24 Chief Complaint: Fall 84-year-old female with hypertension diabetes mellitus Patient was home took half a gummy of marijuana to help her sleep and relax after which she was feeling restless could not fall asleep she was in the bathroom as she got up trying to put her clothes back on she lost her balance and fell and hit her head denies any passing out denies any dizziness or lightheadedness she was feeling slightly nauseous and then later vomited when EMS arrived who brought her in here for evaluation she reports frequent falls recently however itfelt like a month in between fall she is supposed to use a walker and cane which she uses most of the time. However she has been increasingly feeling weak decreased p.o. intake. Denies any fevers chills denies any changes in bowel or urinary habits denies any abdominal pain Currently laying down in bed very comfortable very pleasant denies any headache changes in vision or hearing denies any focal neurodeficits Patient admits to occasionally taking 2.5 mg of Gummies of marijuana with usually no problem happens. Patient was very sick earlier this year where she had to be hospitalized around October ended up having a blood clot requiring IVC filter and has been on Eliquis since then her oncologist has been informing her to stop her Eliquis she has an appointment with him early next week review of systems Pertinent positives as noted in HPI. All other systems were reviewed and are negative on exam Constitutional: No acute distress, conversant, pleasant Eyes: Anicteric sclerae, moist conjunctiva, Pupils equal round reactive to light Neck: Supple, no masses, or JVD No carotid bruits No thyromegaly Lungs: Clear to auscultation Clear to percussion Normal respiratory effort, no accessory muscle use Cardiovascular: Heart regular in rate and rhythm, No murmurs, gallops, or rubs No peripheral edema Abdominal: Soft Nontender, no guarding, rebound or rigidity Abdomen moving with respiration Normoactive bowel sounds Extremities: No digital cyanosis No clubbing Pedal pulses intact and symmetrical Radial pulses intact and symmetrical No calf tenderness Psychiatric: Alert and oriented to person, place and time Neuro Muscles Strength 5/5 in all 4 extremities Sensation to light touch grossly present throughout Cranial nerves II-XII grossly intact Past Medical History Past Medical History: Diabetes Mellitus, GERD/Reflux, Hyperlipidemia, Hypertension, Sleep Apnea/CPAP/BIPAP Additional Past Medical History / Comment(s): type 2 diabetes History of Any Multi-Drug Resistant Organisms: None Reported Past Surgical History: Bariatric Surgery Additional Past Surgical History / Comment(s): bariatric sleeve procedure, rt rotator cuff, tummy tuck, cataract surgery 11/05/22 Past Anesthesia/Blood Transfusion Reactions: Postoperative Nausea & Vomiting (P ONV) Past Psychological History: No Psychological Hx Reported Smoking Status: Never smoker Past Alcohol Use History: None Reported Past Drug Use History: Marijuana - Past Family History Brother(s) Additional Family Medical History / Comment(s): colon cancer. Medications and Allergies Home Medications Medication Instructions Recorded Confirmed Type Amitriptyline HCl [Elavil] 75 mg PO HS 07/06/14 11/05/23 History Bisoprolol-Hctz 10-6.25 mg [Ziac 1 tab PO DAILY 07/06/14 11/05/23 History 10-6.25 MG] Lansoprazole 30 mg PO DAILY 07/06/14 11/05/23 History Insulin Glargine,Hum.rec.anlog 22 unit SQ DAILY 11/15/15 11/05/23 History [Lantus Solostar Pen] Atorvastatin [Lipitor] 20 mg PO DAILY 01/30/18 11/05/23 History Diphenoxylate HCl/Atropine 1 - 2 tab PO QID PRN 01/30/18 11/05/23 History [Lomotil 2.5-0.025 mg Tablet] metFORMIN HCL ER [Glucophage XR] 500 mg PO BID 11/15/22 11/05/23 History Gabapentin [Neurontin] 100 mg PO TID PRN #12 cap 11/19/22 11/05/23 Rx Acetaminophen-Codeine 300-30mg 1 tab PO DIRECTED PRN 10/30/23 11/05/23 History [Tylenol w/codeine #3] Cholecalciferol [Vitamin D3 (125 125 mcg PO DAILY 10/30/23 11/05/23 History Mcg = 5000 Iu)] Melatonin [Melatonin ER] 10 mg PO HS 10/30/23 11/05/23 History Unk Biotin 1 tab PO DAILY 10/30/23 11/05/23 History HYDROcodone/APAP 5-325MG [[place] 1 tab PO Q6HR PRN #21 tab 11/05/23 Rx 5-325] Allergies Allergy/AdvReac Type Severity Reaction Status Date / Time No Known Allergies Allergy Verified 11/05/23 06:20 Physical Exam Vitals: Vital Signs Temp Pulse Resp BP Pulse Ox 05/29/24 01:30 84 18 136/69 95 05/29/24 00:47 97.6 F 92 16 160/81 92 L Intake and Output 05/28/24 05/28/24 05/29/24 14:59 22:59 06:59 Other: Weight 72.575 kg Results CBC & Chem 7: 05/29/24 01:20 05/29/24 01:20 Labs: Abnormal Lab Results - Last 24 Hours (Table) 05/29/24 05/29/24 05/29/24 Range/Units 01:20 01:20 01:20 WBC 11.6 H (3.8-10.6) k/uL Sodium 136 L (137-145) mmol/L Carbon Dioxide 19 L (22-30) mmol/L BUN 27 H (7-17) mg/dL Creatinine 1.60 H (0.52-1.04) mg/dL Glucose 242 H (74-99) mg/dL Plasma Lactic Acid Antonio 6.2 H* (0.7-2.0) mmol/L Assessment and Plan Assessment: 84-year-old female diabetes mellitus hypertension history of blood clots on Eliquis comes in for evaluation for fall and generalized weakness I discussed case with ED doctor and accepted the admission for acute kidney injury and lactic acidosis with anticipated length of stay more than 2 midnights Generalized weakness frequent falls Fall precautions Check daily orthostatic vitals CT of the brain awaiting final report however prelim evaluation and my own interpretation is there is no acute intracranial process Continue with neurochecks VLAD Sodium 136 potassium 3.5 unremarkable BUN elevated 27 creatinine elevated 1.6 Avoid nephrotoxic meds IV fluid hydration normal saline 100 cc/h Monitor urine output Monitor renal function Lactic acidosis 6.2 continue to monitor continue with IV fluid hydration as above Diabetes mellitus Resume Levemir Insulin sliding scale Full code DVT prophylaxis heparin 5000 units subcu 3 times daily, verify home medications patient claims that she is still taking Eliquis and supposed to be stopping it unknown dose Rest of blood work unremarkable hemoglobin 12.3 white count 11.6
--- NOTE | 2024-05-29 06:05 | XR ---
EXAM: XR Lumbosacral Spine, 2 or 3 Views CLINICAL HISTORY: ITS.REASON XR Reason: low back injury TECHNIQUE: Frontal and lateral views of the lumbar spine and sacrum. COMPARISON: No relevant prior studies available. FINDINGS: Vertebrae: Degenerative changes. Osteophytes of the lower thoracic spine. Facet arthropathy of the lower lumbosacral spine. No acute fracture. Normal alignment. Sacrum/coccyx: Unremarkable as visualized. No acute fracture. Disc spaces: No acute findings. No significant narrowing. Soft tissues: Unremarkable. Vasculature: IVC filter. Other findings: Cholecystectomy. IMPRESSION: No acute findings in the lumbar spine.
[2024-05-29] MEDS: INSULIN DETEMIR (LEVEMIR) 100 UNIT/ML SYR SQ SCH (06:30)
[2024-05-29 08:40] LABS: Glucose,Whole Blood 410 mg/dL (70-110)
[2024-05-29 08:40] LABS: Glucose,Whole Blood 329 mg/dL (70-110)
[2024-05-29] MEDS: HEPARIN SODIUM,PORCINE 5,000 UNIT/ML 1 ML VIAL SQ SCH (08:53)
[2024-05-29] MEDS: ATORVASTATIN 20 MG TAB PO SCH (08:53)
[2024-05-29] MEDS: PANTOPRAZOLE 40 MG TABLET PO SCH (08:53)
[2024-05-29] MEDS: INSULIN ASPART (NovoLOG) 100 UNIT/ML VIAL SQ SCH (08:53)
[2024-05-29 11:28] LABS: Glucose,Whole Blood 436 mg/dL (70-110)
[2024-05-29] MEDS ORDERED: IOPAMIDOL CONTRAST (ORAL USE) VIAL PO PRN (13:38)
[2024-05-29] MEDS: IOPAMIDOL CONTRAST (ORAL USE) VIAL PO PRN (14:13)
--- NOTE | 2024-05-29 15:47 | CT ---
EXAMINATION TYPE: CT abdomen pelvis wo con CT DLP: 618 mGycm, Automated exposure control for dose reduction was used. DATE OF EXAM: 05/29/2024 3:33 PM COMPARISON: 06/24/2017 CLINICAL INDICATION: Female, 84 years old with history of hematoma; abdominal pain TECHNIQUE: Axial CT abdomen pelvis wo con;Sagittal and coronal reformats were created on a separate workstation. Contrast used: mL of , (none if empty) Oral contrast used: with Oral Contrast (none if empty) FINDINGS: LOWER CHEST: Unremarkable ABDOMEN LIVER: Unremarkable GALLBLADDER AND BILE DUCTS: Gallbladder appears surgically absent. PANCREAS: Unremarkable. SPLEEN: Unremarkable. ADRENAL GLANDS: Unremarkable. KIDNEYS AND URETERS: No evidence of hydronephrosis or renal calculus. The ureters are unremarkable. Left renal cortical probable cyst. PELVIS BLADDER: Unremarkable REPRODUCTIVE: Unremarkable. ABDOMEN & PELVIS STOMACH AND BOWEL: No evidence of bowel obstruction. Small hiatal hernia. Scattered colonic diverticu la. PERITONEUM/RETROPERITONEUM: No evidence of pneumoperitoneum or free fluid. VASCULATURE: No evidence of aortic aneurysm. IVC filter in place. MUSCULOSKELETAL: Right proximal femur fracture with fixation hardware present. No additional fracture s identified. LYMPH NODES: No gross evidence for lymphadenopathy. SOFT TISSUE/ABDOMINAL WALL: Fat-containing umbilical hernia. Postsurgical changes anterior abdominal wall. Left buttock fluid collections compatible with a hematoma measuring 11.5 x 4.6 x 4.5 cm laterally and one medially which appears separate measuring 5.2 x 4.6 x 3.4 cm. IMPRESSION: 1. Left buttock fluid collections compatible with a hematoma measuring 11.5 x 4.6 x 4.5 cm laterally and one medially which appears separate measuring 5.2 x 4.6 x 3.4 cm. 2. No definitive acute intra-abdominal process. 3. Small hiatal hernia. 4. Colonic diverticulosis. [facility] Workman, , 05/29/2024 3:44 PM
[2024-05-29 16:27] LABS: Glucose,Whole Blood 219 mg/dL (70-110)
[2024-05-29] MEDS: ACETAMINOPHEN TAB 325 MG TAB PO PRN (16:54)
--- NOTE | 2024-05-29 17:32 | P.PN ---
Progress Note - Text Progress Note Date: 05/29/24 He was admitted earlier today. Labs were reviewed. Notified by RN of patient with hematoma on buttocks. Examination of buttocks showed large expansive hematomas on the left buttock. The patient states pain has improved. The patient is unable to put weight on that buttock however the patient currently does not appear to be in any distress. Expansive hematoma on the left buttock. Labs with evidence of elevated lactic, elevated creatinine. The patient with frequent falls significant hematoma on exam CT pelvic imaging showed expansive hematoma x 2 1: Continue to monitor lactic acid is currently decreasing 2: Significant hematoma will monitor hemoglobin pain is improving if patient continues to monitor 3: Hold Eliquis
[2024-05-29 20:08] LABS: Glucose,Whole Blood 146 mg/dL (70-110)
[2024-05-29] MEDS: MELATONIN 5 MG TABLET PO ONE (23:19)
[2024-05-30 05:22] LABS: Appearance,Urine Clear (Clear); Bilirubin,Urine Negative (Negative); Blood,Urine Negative (Negative); Color,Urine Colorless; Glucose,Urine (UA) 4+ (Negative); Ketones,Urine Negative (Negative); Leukocyte Esterase,Urine Negative (Negative); Nitrite,Urine Negative (Negative); PH, Urine 5.5 (5.0-8.0); Protein,Urine Negative (Negative); Specific Gravity,Urine 1.023 (1.001-1.035); Urobilinogen,Urine <2.0 mg/dL (<2.0)
[2024-05-30 05:52] LABS: Glucose,Whole Blood 152 mg/dL (70-110)
--- NOTE | 2024-05-30 06:09 | P.CON ---
Consult Note - . Consult date: 05/30/24 Assessment/Plan:: 84-year-old female presenting via EMS for fall prior to arrival. States she was in the bathroom and experienced a moment of dizziness, falling from standing position onto posterior. States she landed on her buttocks then fell back and hit the back of her head. Denies loss of consciousness. She does take Eliquis. Patient states she has pain in buttock and is unable to put pressure on buttock. She had a CT which showed expansive hematoma in left buttock. Review of Systems ROS Statement: Those systems with pertinent positive or pertinent negative responses have been documented in the HPI. ROS Other: All systems not noted in ROS Statement are negative. Past Medical History Past Medical History: Diabetes Mellitus, GERD/Reflux, Hyperlipidemia, Hypertension, Sleep Apnea/CPAP/BIPAP Additional Past Medical History / Comment(s): type 2 diabetes History of Any Multi-Drug Resistant Organisms: None Reported Past Surgical History: Bariatric Surgery Additional Past Surgical History / Comment(s): bariatric sleeve procedure, rt rotator cuff, tummy tuck, cataract surgery 11/05/22 Past Anesthesia/Blood Transfusion Reactions: Postoperative Nausea & Vomiting (PONV) Past Psychological History: No Psychological Hx Reported Smoking Status: Never smoker Past Alcohol Use History: None Reported Past Drug Use History: Marijuana - Past Family History Brother(s) Additional Family Medical History / Comment(s): colon cancer. General Exam General appearance: alert, in no apparent distress Head exam: Present: atraumatic, normocephalic, normal inspection Eye exam: Present: normal appearance, PERRL, EOMI. Absent: scleral icterus, conjunctival injection, periorbital swelling ENT exam: Present: normal exam, mucous membranes moist Neck exam: Present: normal inspection. Absent: tenderness, meningismus, lymphadenopathy Respiratory exam: Present: normal lung sounds bilaterally. Absent: respiratory distress, wheezes, rales, rhonchi, stridor Cardiovascular Exam: Present: regular rate, normal rhythm, normal heart sounds. Absent: systolic murmur, diastolic murmur, rubs, gallop, clicks GI/Abdominal exam: Present: soft, normal bowel sounds. Absent: distended, tenderness, guarding, rebound, rigid Extremities exam: Present: normal inspection, full ROM, normal capillary refill. Absent: tenderness, pedal edema, joint swelling, calf tenderness Neurological exam: Present: alert, oriented X3, CN II-XII intact Psychiatric exam: Present: normal affect, normal mood Skin exam: Present: warm, dry, intact, normal color. Absent: rash 84 year old female with left buttock hematoma -CT-AP reviewed -Regular Diet, NPO/midnight -Will plan for Incision and Drainage of Hematoma Thursday 05/31 -AM labs Sriram Salvador [facility] [phone]
[2024-05-30 06:20] LABS: African American GFR (CKD) 32 (>60 ml/min/1.73 sqM); Anion Gap 7 mmol/L; Blood Urea Nitrogen 26 mg/dL (7-17); Calcium 8.2 mg/dL (8.4-10.2); Carbon Dioxide 23 mmol/L (22-30); Chloride 106 mmol/L (98-107); Glucose 121 mg/dL (74-99); Non-African American GFR(CKD) 28 (>60 ml/min/1.73 sqM); Potassium 4.2 mmol/L (3.5-5.1); Sodium 136 mmol/L (137-145)
[2024-05-30 07:03] LABS: Basophils % (A) 0 %; Eosinophils % (A) 1 %; HCT 22.4 % (34.0-46.0); Lymphocytes # (A) 1.4 k/uL (1.0-4.8); Lymphocytes % (A) 33 %; MCH 30.5 pg (25.0-35.0); MCHC 34.2 g/dL (31.0-37.0); MCV 89.2 fL (80.0-100.0); Mean Platelet Volume 7.3; Monocytes # (A) 0.3 k/uL (0-1.0); Monocytes % (A) 7 %; Neutrophils # (A) 2.4 k/uL (1.3-7.7); Neutrophils % (A) 57 %; Platelet Count 202 k/uL (150-450); RBC 2.51 m/uL (3.80-5.40); RDW 14.5 % (11.5-15.5); WBC 4.3 k/uL (3.8-10.6)
[2024-05-30 07:19] LABS: HGB 7.7 gm/dL (11.4-16.0)
[2024-05-30 10:08] LABS: HCT 21.9 % (34.0-46.0); HGB 7.5 gm/dL (11.4-16.0); MCH 30.5 pg (25.0-35.0); MCHC 34.2 g/dL (31.0-37.0); MCV 89.1 fL (80.0-100.0); Mean Platelet Volume 7.9; Platelet Count 199 k/uL (150-450); RBC 2.46 m/uL (3.80-5.40); RDW 14.4 % (11.5-15.5); WBC 5.5 k/uL (3.8-10.6)
[2024-05-30 11:33] LABS: Glucose,Whole Blood 217 mg/dL (70-110)
[2024-05-30 16:36] LABS: Glucose,Whole Blood 136 mg/dL (70-110)
[2024-05-30 18:08] LABS: HCT 21.8 % (34.0-46.0); MCH 29.4 pg (25.0-35.0); MCHC 32.2 g/dL (31.0-37.0); MCV 91.2 fL (80.0-100.0); Mean Platelet Volume 8.2; Platelet Count 203 k/uL (150-450); RBC 2.39 m/uL (3.80-5.40); RDW 14.2 % (11.5-15.5); WBC 5.1 k/uL (3.8-10.6)
--- NOTE | 2024-05-30 18:54 | P.PN ---
Subjective Progress Note Date: 05/30/24 (delated charting seen at 1015) Patient seen and examined at bedside. Decreasing pain. Denies any chest pain, shortness of breath, lightheadedness, dizziness, or palpitations. Has needed transfusion after fall in October Vital signs reviewed General: Nontoxic, no distress, appears at stated age Cardiovascular: S1S2 reg, no murmur Lungs: CTA bilateral, no rhonchi, no rales, no accessory muscle use Abdominal: Soft, nontender to palpation, no guarding Ext: No gross muscle atrophy, no edema b/l lower extremities, no contractures Neuro: CN II-XI grossly intact, no focal neuro deficits Psych: Alert, oriented, appropriate affect Assessment/Plan: Mechanical fall with resultant left buttock hematoma 11.5 x 4.6 x 4.5 cm with 1 additional hematoma at 5.2 x 4.6 x 3.4 cm Acute blood loss anemia-surgery recommendations appreciated: Plan for operative I&D in a.m. Recurrent falls -Hold Eliquis with drop in hemoglobin -Repeat CBC at 5 PM -Check iron studies given history of transfusions in the past most recent in October 2023 after a fall. -Transfuse 1 unit of packed red blood cells if hemoglobin less than 7 or becomes symptomatic. Diabetes mellitus type 2 -A1c 8.2 -Resume Jardiance, sliding scale insulin, Levemir 22 units daily, hold Trulicity -Follow blood sugars -Hold metformin Chronic conditions: HTN- resume home medication HLD SLIM Imaging: None new Data Review: Labs reviewed from today reveal a hemoglobin of 7.7 down from 12.3. Verified on repeat., And 1C8.2 DVT prophylaxis: SCDs Anticipated discharge date: Pending clinical course Anticipated discharge place: Pending clinical course This dictation was prepared using [employer] voice recognition software. Though every attempt is made to correct errors during dictation some may still exist. Objective - Vital Signs Vital signs: Vital Signs Temp 98.2 F 05/30/24 08:00 Pulse 98 05/30/24 16:00 Resp 16 05/30/24 16:00 BP 123/58 05/30/24 16:00 Pulse Ox 97 05/30/24 16:00 FiO2 Intake & Output 05/29/24 05/30/24 05/30/24 18:59 06:59 18:59 Intake Total 1038 360 Output Total 847 Balance 1038 -847 360 Weight 72.575 kg 60.5 kg Intake: Intake, IV Titration 800 Amount Sodium Chloride 0.9% 1, 800 000 ml @ 100 mls/hr IV . Q10H [facility] Rx#:[id number] Oral 238 360 Output: Urine 400 Post Void Residual 447 Other: Voiding Method Toilet Toilet # Voids 3 # Bowel Movements 1 - Labs CBC & Chem 7: 05/30/24 17:57 05/30/24 05:12 Labs: Abnormal Lab Results - Last 24 Hours (Table) 05/29/24 05/29/24 05/30/24 Range/Units 19:23 20:06 04:40 RBC (3.80-5.40) m/uL Hgb (11.4-16.0) gm/dL Hct (34.0-46.0) % Sodium (137-145) mmol/L BUN (7-17) mg/dL Creatinine (0.52-1.04) mg/dL Glucose (74-99) mg/dL POC Glucose (mg/dL) 146 H (70-110) mg/dL Hemoglobin A1c (<=6.0) % Plasma Lactic Acid Antonio 3.0 H* (0.7-2.0) mmol/L Calcium (8.4-10.2) mg/dL Urine Glucose (UA) 4+ H (Negative) 05/30/24 05/30/24 05/30/24 Range/Units 05:12 05:12 05:49 RBC (3.80-5.40) m/uL Hgb (11.4-16.0) gm/dL Hct (34.0-46.0) % Sodium 136 L (137-145) mmol/L BUN 26 H (7-17) mg/dL Creatinine 1.69 H (0.52-1.04) mg/dL Glucose 121 H (74-99) mg/dL POC Glucose (mg/dL) 152 H (70-110) mg/dL Hemoglobin A1c 8.2 H (<=6.0) % Plasma Lactic Acid Antonio (0.7-2.0) mmol/L Calcium 8.2 L (8.4-10.2) mg/dL Urine Glucose (UA) (Negative) 05/30/24 05/30/24 05/30/24 Range/Units 06:22 09:09 11:30 RBC 2.51 L 2.46 L (3.80-5.40) m/uL Hgb 7.7 L D 7.5 L (11.4-16.0) gm/dL Hct 22.4 L 21.9 L (34.0-46.0) % Sodium (137-145) mmol/L BUN (7-17) mg/dL Creatinine (0.52-1.04) mg/dL Glucose (74-99) mg/dL POC Glucose (mg/dL) 217 H (70-110) mg/dL Hemoglobin A1c (<=6.0) % Plasma Lactic Acid Antonio (0.7-2.0) mmol/L Calcium (8.4-10.2) mg/dL Urine Glucose (UA) (Negative) 05/30/24 05/30/24 Range/Units 16:35 17:57 RBC 2.39 L (3.80-5.40) m/uL Hgb 7.0 L (11.4-16.0) gm/dL Hct 21.8 L (34.0-46.0) % Sodium (137-145) mmol/L BUN (7-17) mg/dL Creatinine (0.52-1.04) mg/dL Glucose (74-99) mg/dL POC Glucose (mg/dL) 136 H (70-110) mg/dL Hemoglobin A1c (<=6.0) % Plasma Lactic Acid Antonio (0.7-2.0) mmol/L Calcium (8.4-10.2) mg/dL Urine Glucose (UA) (Negative)
[2024-05-30] MEDS ORDERED: NON FORMULARY DRUG (Empagliflozin [Jardiance] 10 MG Tablet) PO SCH (19:00)
[2024-05-30 20:40] LABS: Glucose,Whole Blood 150 mg/dL (70-110)
[2024-05-30] MEDS: AMITRIPTYLINE HCL 25 MG TAB PO SCH (21:18)
[2024-05-30] MEDS: GABAPENTIN 100 MG CAP PO PRN (21:18)
[2024-05-30 23:12] LABS: % Iron Saturation 9.84 (12.00-45.00); Ferritin 36.8 ng/mL (10.0-291.0)
[2024-05-31 06:17] LABS: Glucose,Whole Blood 141 mg/dL (70-110)
[2024-05-31 06:55] LABS: Basophils % (A) 1 %; Eosinophils % (A) 1 %; HGB 8.9 gm/dL (11.4-16.0); Lymphocytes # (A) 1.5 k/uL (1.0-4.8); Lymphocytes % (A) 38 %; MCH 30.5 pg (25.0-35.0); MCHC 34.4 g/dL (31.0-37.0); MCV 88.8 fL (80.0-100.0); Mean Platelet Volume 7.2; Monocytes # (A) 0.2 k/uL (0-1.0); Monocytes % (A) 5 %; Neutrophils # (A) 2.1 k/uL (1.3-7.7); Neutrophils % (A) 53 %; Platelet Count 189 k/uL (150-450); RBC 2.93 m/uL (3.80-5.40); RDW 14.3 % (11.5-15.5)
[2024-05-31 06:58] LABS: INR 0.9 (<1.2)
[2024-05-31 07:02] LABS: African American GFR (CKD) 37 (>60 ml/min/1.73 sqM); Anion Gap 2 mmol/L; Blood Urea Nitrogen 18 mg/dL (7-17); Calcium 8.5 mg/dL (8.4-10.2); Carbon Dioxide 28 mmol/L (22-30); Chloride 107 mmol/L (98-107); Glucose 135 mg/dL (74-99); Non-African American GFR(CKD) 32 (>60 ml/min/1.73 sqM); Potassium 4.3 mmol/L (3.5-5.1); Sodium 137 mmol/L (137-145)
[2024-05-31] MEDS: BISOPROLOL-HCTZ 10-6.25 MG 1 EACH TAB PO SCH (08:20)
[2024-05-31] MEDS: DONEPEZIL 10 MG TAB PO SCH (08:20)
[2024-05-31] MEDS: IV FLUID CONTINUATION 1,000 ML IV ONE ×2 (11:46→13:23)
[2024-05-31] MEDS ORDERED: SUCCINYLCHOLINE CHLORIDE 200 MG/10 ML VIAL IV ONE (11:59)
[2024-05-31] MEDS ORDERED: LIDOCAINE 2% (PF) 20 MG/ML 5 ML VIAL ONE (11:59)
[2024-05-31] MEDS ORDERED: fentaNYL (PF) 50 MCG/ML 2 ML AMP ONE (11:59)
[2024-05-31] MEDS ORDERED: ceFAZolin 1 GM/50 ML BAG (PMX) ONE (11:59)
[2024-05-31] MEDS ORDERED: PROPOFOL 10 MG/ML 20 ML VIAL IV ONE (11:59)
[2024-05-31 12:05] LABS: Glucose,Whole Blood 126 mg/dL (70-110)
[2024-05-31] MEDS: DEXAMETHASONE SOD PHOSPHATE 4 MG/ML 1 ML VIAL IVP STA (12:27)
[2024-05-31] MEDS: ONDANSETRON 4 MG/2 ML VIAL IVP PRN (12:27)
[2024-05-31] MEDS: LIDOCAINE 1%-EPI 1:100,000 20 ML VIAL SQ ONE (13:23)
[2024-05-31 14:43] LABS: Glucose,Whole Blood 119 mg/dL (70-110)
[2024-05-31] MEDS: fentaNYL (PF) 50 MCG/ML 2 ML AMP IVP PRN (14:45)
[2024-05-31] MEDS: HYDROcodone/APAP 5-325MG 1 EACH TAB PO PRN (16:06)
--- NOTE | 2024-05-31 16:07 | P.PN ---
Subjective Progress Note Date: 05/31/24 84 year old F with PMH of HTN, DM, h/o DVT, sleep apnea, GERD, HLD on Eliquis presents to the ED for a mechanical fall after taking a marijuana supplement. In the ED she underwent extensive evaluation. BP 160/81, HR 92, T 97.6, RR 16, 92% on RA. CT head and C-spine negative for acute pathology. EKG sinus arrhythmia with incomplete RBBB. Lumbar spine XR negative for acute pathology. CT AP hematoma left buttocks 11.5 x 4.6 x 4.5 cm + 5.2 x 4.6 x 3.4 cm. CBC, CMP significant for WBC 11.6, Na 136, bicarb 19, BUN 27, Cr 1.6, glu 242. Lactic acid 6.2. Troponin < 0.012. UA 4+ glucose. Hg downtrending to 7 requiring 1 PRBC on 05.30. Iron studies Fe 30, % sat 9.84, Ferritin 36.8. Surgery consulted plans for I&D today. 05/31 Patient was seen and examined. CBC and BMP significant for RBC 2.93, Hg 8.9, Hct 26, BUN 18, Cr 1.49, glu 135. A1c 8.2. General: non toxic, no distress, appears at stated age Derm: warm, dry Head: atraumatic, normocephalic, symmetric Eyes: EOMI, no lid lag, anicteric sclera Mouth: no lip lesion, mucus membranes moist Cardiovascular: S1S2 reg, no murmur Lungs: CTA bilateral, no rhonchi, no rales, no accessory muscle use Ext: no gross muscle atrophy, no edema, no contractures Psych: Alert, oriented, appropriate affect Based on my assessment of this patient, this patient meets a high complexity level of care. Mechanical fall with resultant left buttock hematoma 11.5 x 4.6 x 4.5 cm + 5.2 x 4.6 x 3.4 cm: Surgery plans on I&D today. Acute blood loss anemia due to above VLAD on CKD stage IIIa: NS at 100 cc/hr. Recurrent falls: Fall precautions. PT consult Diabetes mellitus type 2: A1c 8.2. Levemir 22 units QD. ISS. Accuchecks ACHS. Hypoglycemic precautions. HTN: Bisoprolol 10 mg PO QD. HCTZ 6.25 mg PO QD. HLD: Lipitor 20 mg PO QD. SLIM: CPAP QHS. CODE STATUS: FULL CODE DVT Prophylaxis: SCD GI Prophylaxis: Protonix PO Designated medical POA if patient is not able to make medical decisions for themselves: I have reviewed the following fashion consultant sales notes: Surgery. I have reviewed the results of the following tests: CBC, BMP. I have ordered the following tests: CBC for tomorrow AM. I have discussed the care of this patient with the following independent historian: RN. I have independently interpreted the following test below: I have discussed the management of this patient with the following physician: Objective - Vital Signs Vital signs: Vital Signs Temp 97.8 F 05/31/24 05:42 Pulse 98 05/31/24 05:42 Resp 14 05/31/24 05:42 BP 117/77 05/31/24 05:42 Pulse Ox 92 L 05/31/24 05:42 FiO2 Intake & Output 05/30/24 05/31/24 05/31/24 18:59 06:59 18:59 Intake Total 360 0 Balance 360 0 Weight 76.5 kg Intake: Oral 360 Blood Product 0 Rc As-1 Unit 0 [id number] Other: Voiding Method Toilet Toilet # Voids 3 # Bowel Movements 1 1 - Labs CBC & Chem 7: 05/31/24 06:00 05/31/24 06:00 Labs: Abnormal Lab Results - Last 24 Hours (Table) 05/30/24 05/30/24 05/30/24 Range/Units 05:12 09:09 11:30 RBC 2.46 L (3.80-5.40) m/uL Hgb 7.5 L (11.4-16.0) gm/dL Hct 21.9 L (34.0-46.0) % BUN (7-17) mg/dL Creatinine (0.52-1.04) mg/dL Glucose (74-99) mg/dL POC Glucose (mg/dL) 217 H (70-110) mg/dL Hemoglobin A1c 8.2 H (<=6.0) % Iron (50-170) UG/DL % Saturation (12.00-45.00) Crossmatch 05/30/24 05/30/24 05/30/24 Range/Units 16:35 17:57 17:57 RBC 2.39 L (3.80-5.40) m/uL Hgb 7.0 L (11.4-16.0) gm/dL Hct 21.8 L (34.0-46.0) % BUN (7-17) mg/dL Creatinine (0.52-1.04) mg/dL Glucose (74-99) mg/dL POC Glucose (mg/dL) 136 H (70-110) mg/dL Hemoglobin A1c (<=6.0) % Iron 30 L (50-170) UG/DL % Saturation 9.84 L (12.00-45.00) Crossmatch 05/30/24 05/30/24 05/31/24 Range/Units 19:07 20:36 06:00 RBC 2.93 L (3.80-5.40) m/uL Hgb 8.9 L D (11.4-16.0) gm/dL Hct 26.0 L (34.0-46.0) % BUN (7-17) mg/dL Creatinine (0.52-1.04) mg/dL Glucose (74-99) mg/dL POC Glucose (mg/dL) 150 H (70-110) mg/dL Hemoglobin A1c (<=6.0) % Iron (50-170) UG/DL % Saturation (12.00-45.00) Crossmatch See Detail 05/31/24 05/31/24 Range/Units 06:00 06:14 RBC (3.80-5.40) m/uL Hgb (11.4-16.0) gm/dL Hct (34.0-46.0) % BUN 18 H (7-17) mg/dL Creatinine 1.49 H (0.52-1.04) mg/dL Glucose 135 H (74-99) mg/dL POC Glucose (mg/dL) 141 H (70-110) mg/dL Hemoglobin A1c (<=6.0) % Iron (50-170) UG/DL % Saturation (12.00-45.00) Crossmatch
[2024-05-31 16:16] LABS: Glucose,Whole Blood 132 mg/dL (70-110)
[2024-05-31 20:33] LABS: Glucose,Whole Blood 359 mg/dL (70-110)
[2024-06-01 06:08] LABS: Glucose,Whole Blood 155 mg/dL (70-110)
[2024-06-01 08:43] LABS: HCT 26.2 % (34.0-46.0); HGB 8.7 gm/dL (11.4-16.0); Hypochromasia Slight; MCH 30.6 pg (25.0-35.0); MCHC 33.3 g/dL (31.0-37.0); MCV 91.9 fL (80.0-100.0); Mean Platelet Volume 7.1; Platelet Count 224 k/uL (150-450); RBC 2.85 m/uL (3.80-5.40); RDW 14.2 % (11.5-15.5); WBC 5.9 k/uL (3.8-10.6)
--- NOTE | 2024-06-01 11:42 | P.PN ---
Subjective Progress Note Date: 06/01/24 84 year old F with PMH of HTN, DM, h/o DVT, sleep apnea, GERD, HLD on Eliquis presents to the ED for a mechanical fall after taking a marijuana supplement. In the ED she underwent extensive evaluation. BP 160/81, HR 92, T 97.6, RR 16, 92% on RA. CT head and C-spine negative for acute pathology. EKG sinus arrhythmia with incomplete RBBB. Lumbar spine XR negative for acute pathology. CT AP hematoma left buttocks 11.5 x 4.6 x 4.5 cm + 5.2 x 4.6 x 3.4 cm. CBC, CMP significant for WBC 11.6, Na 136, bicarb 19, BUN 27, Cr 1.6, glu 242. Lactic acid 6.2. Troponin < 0.012. UA 4+ glucose. Hg downtrending to 7 requiring 1 PRBC on 05.30. Iron studies Fe 30, % sat 9.84, Ferritin 36.8. I&D performed on 05/31. 06/01 Patient was seen and examined. She reports soreness in her buttocks. Underwent I&D yesterday with packing. CBC shows RBC 2.85, Hg 8.7, Hct 26.2. CPK 98. 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 She has been following with Dr. Phelan and plans for discontinuing Eliquis. We will stop Eliquis on discharge as risks > benefits. General: non toxic, no distress, appears at stated age Derm: warm, dry Head: atraumatic, normocephalic, symmetric Eyes: EOMI, no lid lag, anicteric sclera Mouth: no lip lesion, mucus membranes moist Cardiovascular: S1S2 reg, no murmur Lungs: CTA bilateral, no rhonchi, no rales, no accessory muscle use Ext: no gross muscle atrophy, no edema, no contractures Psych: Alert, oriented, appropriate affect Based on my assessment of this patient, this patient meets a high complexity level of care. Mechanical fall with resultant left buttock hematoma 11.5 x 4.6 x 4.5 cm + 5.2 x 4.6 x 3.4 cm: Status post I&D 05/31 with packing. Acute blood loss anemia due to above VLAD on CKD stage IIIa: NS at 100 cc/hr. Recurrent falls: Fall precautions. PT consult Diabetes mellitus type 2: A1c 8.2. Levemir 22 units QD. ISS. Accuchecks ACHS. Hypoglycemic precautions. HTN: BP 115/66. Bisoprolol 10 mg PO QD. HCTZ 6.25 mg PO QD. HLD: Lipitor 20 mg PO QD. SLIM: CPAP QHS. CODE STATUS: FULL CODE DVT Prophylaxis: SCD GI Prophylaxis: Protonix PO Designated medical POA if patient is not able to make medical decisions for themselves: Dispo: PT consult still pending. Patient and will need to be taught wound care if going home. Anticipate DC in the next 24H. I have reviewed the following baby registry sales consultant notes: Operative note. I have reviewed the results of the following tests: CBC, CPK. I have ordered the following tests: CBC tomorrow AM. I have discussed the care of this patient with the following independent historian: I have independently interpreted the following test below: I have discussed the management of this patient with the following physician: Objective - Vital Signs Vital signs: Vital Signs Temp 98.0 F 05/31/24 20:00 Pulse 68 06/01/24 03:59 Resp 14 06/01/24 03:59 BP 115/66 06/01/24 03:59 Pulse Ox 96 06/01/24 03:59 FiO2 Intake & Output 05/31/24 06/01/24 06/01/24 18:59 06:59 18:59 Intake Total 2030 Balance 2030 Weight 49.2 kg Intake: IV 1400 Intake, IV Titration 150 Amount Sodium Chloride 0.9% 1, 150 000 ml @ 100 mls/hr IV . Q10H [facility] Rx#:[id number] Oral 480 Other: Voiding Method Toilet Toilet # Voids 1 2 - Labs CBC & Chem 7: 06/01/24 08:16 05/31/24 06:00 Labs: Abnormal Lab Results - Last 24 Hours (Table) 05/31/24 05/31/24 05/31/24 Range/Units 12:03 14:42 16:14 POC Glucose (mg/dL) 126 H 119 H 132 H (70-110) mg/dL 05/31/24 06/01/24 Range/Units 20:31 06:06 POC Glucose (mg/dL) 359 H 155 H (70-110) mg/dL
[2024-06-01 12:00] LABS: Glucose,Whole Blood 181 mg/dL (70-110)
--- NOTE | 2024-06-01 13:47 | P.PN ---
Subjective Progress Note Date: 06/01/24 CHIEF COMPLAINT: Fall HISTORY OF PRESENT ILLNESS: Patient status post incision and drainage of left buttock hematoma. Patient has a [place] drain in place. Hemoglobin stable at 8.7. She does report improvement in her pain. She is tolerating diet. Denies any nausea or vomiting. PHYSICAL EXAM: VITAL SIGNS: Reviewed. GENERAL: Well-developed in no acute distress. Skin: Left buttocks with [place] drain. Dressing is saturated with blood. Ecchymosis noted along the left buttock. ASSESSMENT: 1. Left buttock hematoma status post I&D PLAN: -Remove packing today. Cover with gauze and ABD -Recommend to cleanse wound daily and cover with gauze and ABD -Patient can be discharged from surgical standpoint when medically cleared Physician Publications Sales Representative note has been reviewed by physician. Signing provider agrees with the documented findings, assessment, and plan of care. Attestation Patient seen and examined at bedside. Hematoma site appears to be healing well. Continue drainage. Recommended removal of packing. Continue with [place]. Continue local wound care. Surgically stable for discharge. Sarah Garcia DO Objective - Vital Signs Vital signs: Vital Signs Temp 98.1 F 06/01/24 11:19 Pulse 78 06/01/24 11:19 Resp 18 06/01/24 11:19 BP 127/71 06/01/24 11:19 Pulse Ox 95 06/01/24 11:19 FiO2 Intake & Output 05/31/24 06/01/24 06/01/24 18:59 06:59 18:59 Intake Total 2029 118 Balance 2029 118 Weight 49.2 kg Intake: IV 1400 Intake, IV Titration 150 Amount Sodium Chloride 0.9% 1, 150 000 ml @ 100 mls/hr IV . Q10H [facility] Rx#:[id number] Oral 480 118 Other: Voiding Method Toilet Toilet # Voids 1 2 - Labs CBC & Chem 7: 06/01/24 08:16 05/31/24 06:00 Labs: Abnormal Lab Results - Last 24 Hours (Table) 05/31/24 05/31/24 05/31/24 Range/Units 14:42 16:14 20:31 RBC (3.80-5.40) m/uL Hgb (11.4-16.0) gm/dL Hct (34.0-46.0) % POC Glucose (mg/dL) 119 H 132 H 359 H (70-110) mg/dL 06/01/24 06/01/24 06/01/24 Range/Units 06:06 08:16 11:58 RBC 2.85 L (3.80-5.40) m/uL Hgb 8.7 L (11.4-16.0) gm/dL Hct 26.2 L (34.0-46.0) % POC Glucose (mg/dL) 155 H 181 H (70-110) mg/dL
[2024-06-01 16:47] LABS: Glucose,Whole Blood 204 mg/dL (70-110)
--- NOTE | 2024-06-01 18:11 | P.OP ---
Date of Procedure: 05/31/24 Preoperative Diagnosis: Left Gluteal Hematoma Postoperative Diagnosis: Left Gluteal Hematoma Procedure(s) Performed: Incision and Drainage Left Gluteal Hematoma Anesthesia: MAC Surgeon: Sriram Salvador Pathology: none sent Condition: stable Disposition: PACU Description of Procedure: The patient was brought to the operating suite. Anesthesia was given and the patient was intubated. The patient was placed in the prone position. The gluteal area was prepped and draped in the usual sterile fashion. A timeout was performed before the procedure. 1 % Lidocaine Local was injected into the left gluteal region . A #15 blade was used to make an incision in the left gluteal region. A hemostat was used used to break up loculations of hematoma in the gluteal region. There was about 150 cc of old blood that was drained from the incision. A lisbeth drain was then placed into the open cavity. The drain was secured with #2-0 Nylon. Incision was closed with #2-0 Nylon. A sterile dressing was applied. The patient tolerated the procedure well and was sent to the PACU in stable condition.
[2024-06-01 20:25] LABS: Glucose,Whole Blood 172 mg/dL (70-110)
[2024-06-02 06:08] LABS: Glucose,Whole Blood 147 mg/dL (70-110)
[2024-06-02 08:46] VITALS: RESP 17; TEMP 97.7
[2024-06-02 09:38] LABS: HCT 27.3 % (34.0-46.0); HGB 8.7 gm/dL (11.4-16.0); Hypochromasia Moderate; MCH 29.9 pg (25.0-35.0); MCHC 31.7 g/dL (31.0-37.0); MCV 94.3 fL (80.0-100.0); Mean Platelet Volume 7.2; Platelet Count 253 k/uL (150-450); RDW 14.4 % (11.5-15.5); WBC 5.5 k/uL (3.8-10.6)
--- NOTE | 2024-06-02 10:55 | P.PN ---
Subjective Progress Note Date: 06/02/24 CHIEF COMPLAINT: Fall HISTORY OF PRESENT ILLNESS: Patient status post incision and drainage of left buttock hematoma. Patient reports improvement of her pain. The dressing was changed yesterday. Hemoglobin stable at 8.7. Vital stable. Afebrile. PHYSICAL EXAM: VITAL SIGNS: Reviewed. GENERAL: Well-developed in no acute distress. Skin: Left buttocks with [place] drain. dressing clean dry and intact. Ecchymosis noted along the left buttock. ASSESSMENT: 1. Left buttock hematoma status post I&D PLAN: -Patient can be discharged from surgical standpoint -Recommend to cleanse wound daily and cover with gauze and ABD Physician Guard Rail Installer note has been reviewed by physician. Signing provider agrees with the documented findings, assessment, and plan of care. Attestation Patient seen and examined at bedside. Patient's hematoma site appears to be improving and patient states feels much better. Continue with local wound care. [place] drain in place and to be in place until follow-up as outpatient. Wound care and activity instructions were provided in case of discharge. Sarah Garcia DO Objective - Vital Signs Vital signs: Vital Signs Temp 97.7 F 06/02/24 08:46 Pulse 88 06/02/24 08:46 Resp 17 06/02/24 08:46 BP 113/70 06/02/24 08:46 Pulse Ox 96 06/02/24 08:46 FiO2 Intake & Output 06/01/24 06/02/24 06/02/24 18:59 06:59 18:59 Intake Total 354 540 118 Balance 354 540 118 Weight 144 kg Intake: Intake, IV Titration 0 Amount IV Fluid Continuation 1, 0 000 ml @ 0 mls/hr IV .[facility] Rx#:[id number] Oral 354 540 118 Other: Voiding Method Toilet Toilet # Voids 3 1 - Labs CBC & Chem 7: 06/02/24 09:09 05/31/24 06:00 Labs: Abnormal Lab Results - Last 24 Hours (Table) 06/01/24 06/01/24 06/01/24 Range/Units 11:58 16:45 20:24 RBC (3.80-5.40) m/uL Hgb (11.4-16.0) gm/dL Hct (34.0-46.0) % POC Glucose (mg/dL) 181 H 204 H 172 H (70-110) mg/dL 06/02/24 06/02/24 Range/Units 06:07 09:09 RBC 2.90 L (3.80-5.40) m/uL Hgb 8.7 L (11.4-16.0) gm/dL Hct 27.3 L (34.0-46.0) % POC Glucose (mg/dL) 147 H (70-110) mg/dL
[2024-06-02 11:58] VITALS: BP 148/78; PULSE 69
--- NOTE | 2024-06-02 11:59 | P.DS ---
Providers Date of admission: 05/29/24 05:22 Expected date of discharge: 06/02/24 Attending physician: Patience Bravo MD Consults: 05/29/24 18:52 Consult Physician Routine Consulting Provider: Sriram Salvador Consult Reason/Comments: hematoma Do you want consulting provider notified?: Already Contacted Primary care physician: VIMAL Cedillo Hospital Course: 84 year old F with PMH of HTN, DM, h/o DVT, sleep apnea, GERD, HLD on Eliquis presents to the ED for a mechanical fall after taking a marijuana supplement. In the ED she underwent extensive evaluation. BP 160/81, HR 92, T 97.6, RR 16, 92% on RA. CT head and C-spine negative for acute pathology. EKG sinus arrhythmia with incomplete RBBB. Lumbar spine XR negative for acute pathology. CT AP hematoma left buttocks 11.5 x 4.6 x 4.5 cm + 5.2 x 4.6 x 3.4 cm. CBC, CMP significant for WBC 11.6, Na 136, bicarb 19, BUN 27, Cr 1.6, glu 242. Lactic acid 6.2. Troponin < 0.012. UA 4+ glucose. Hg downtrending to 7 requiring 1 PRBC on .. Iron studies Fe 30, % sat 9.84, Ferritin 36.8. I&D performed on 05/31. 06/01 Patient was seen and examined. She reports soreness in her buttocks. Underwent I&D yesterday with packing. CBC shows RBC 2.85, Hg 8.7, Hct 26.2. CPK 98. 06/02 Patient was seen and examined. CBC shows Hg 8.7. Case management on board for wound care supplies. States she is comfortable going home. Ambulating well. Follow up with PCP within 1-2 days, Dr. Esteban on 06/[address] Phelan within 1 week of discharge. 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 She has been following with Dr. Phelan and plans for discontinuing Eliquis. We will stop Eliquis on discharge as risks > benefits. General: non toxic, no distress, appears at stated age Derm: warm, dry Head: atraumatic, normocephalic, symmetric Eyes: EOMI, no lid lag, anicteric sclera Mouth: no lip lesion, mucus membranes moist Cardiovascular: S1S2 reg, no murmur Lungs: CTA bilateral, no rhonchi, no rales, no accessory muscle use Ext: no gross muscle atrophy, no edema, no contractures Psych: Alert, oriented, appropriate affect Discharge Diagnosis: Mechanical fall with resultant left buttock hematoma 11.5 x 4.6 x 4.5 cm + 5.2 x 4.6 x 3.4 cm: Status post I&D 05/31 with packing. 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 Patient Condition at Discharge: Stable Plan - Discharge Summary New Discharge Prescriptions: New Insulin Detemir (Levemir) [Levemir] 22 unit SQ DAILY each Continue Bisoprolol-Hctz 10-6.25 mg [Ziac 10-6.25 MG] 1 tab PO DAILY Lansoprazole 30 mg PO DAILY Amitriptyline HCl [Elavil] 75 mg PO HS Diphenoxylate HCl/Atropine [Lomotil 2.5-0.025 mg Tablet] 2 tab PO QID PRN PRN Reason: Diarrhea metFORMIN HCL ER [Glucophage XR] 500 mg PO BID Gabapentin [Neurontin] 100 mg PO TID PRN #12 cap PRN Reason: Pain Galantamine HBr [Razadyne ER] 8 mg PO DAILY Donepezil HCl [Aricept] 10 mg PO DAILY Betamethasone Dipropionate [Betamethasone Dipropionate 0.05%] 1 applic TOPICAL HS Sulfamethox-Tmp 800-160Mg [Bactrim DS 800-160 mg] 1 tab PO Q12HR Meclizine HCl 50 - 100 mg PO Q4-6H PRN PRN Reason: Vertigo Eszopiclone [Lunesta] 2 mg PO HS PRN PRN Reason: Insomnia Empagliflozin [Jardiance] 10 mg PO DIRECTED Dulaglutide [Trulicity] 1.5 mg SQ Q7D Discontinued Apixaban [Eliquis] 5 mg PO BID Discharge Medication List Amitriptyline HCl [Elavil] 75 mg PO HS 07/06/14 [History] Bisoprolol-Hctz 10-6.25 mg [Ziac 10-6.25 MG] 1 tab PO DAILY 07/06/14 [History] Lansoprazole 30 mg PO DAILY 07/06/14 [History] Diphenoxylate HCl/Atropine [Lomotil 2.5-0.025 mg Tablet] 2 tab PO QID PRN 01/30/18 [History] metFORMIN HCL ER [Glucophage XR] 500 mg PO BID 11/15/22 [History] Gabapentin [Neurontin] 100 mg PO TID PRN #12 cap 11/19/22 [Rx] Betamethasone Dipropionate [Betamethasone Dipropionate 0.05%] 1 applic TOPICAL HS 05/29/24 [History] Donepezil HCl [Aricept] 10 mg PO DAILY 05/29/24 [History] Dulaglutide [Trulicity] 1.5 mg SQ Q7D 05/29/24 [History] Empagliflozin [Jardiance] 10 mg PO DIRECTED 05/29/24 [History] Eszopiclone [Lunesta] 2 mg PO HS PRN 05/29/24 [History] Galantamine HBr [Razadyne ER] 8 mg PO DAILY 05/29/24 [History] Meclizine HCl 50 - 100 mg PO Q4-6H PRN 05/29/24 [History] Sulfamethox-Tmp 800-160Mg [Bactrim DS 800-160 mg] 1 tab PO Q12HR 05/29/24 [History] Insulin Detemir (Levemir) [Levemir] 22 unit SQ DAILY each 06/02/24 [Rx] Follow up Appointment(s)/Referral(s): [facility], [NON-STAFF] - Sae Esteban DO [Doctor of Osteopathic Medicine] - 06/08/24 Nicolette Ortega NPC [Primary Care Provider] - 1-2 days Antonio Phelan MD [STAFF PHYSICIAN] - 1 Week Activity/Diet/Wound Care/Special Instructions: Cleanse wound daily then apply dry 4x4 and abd pad, change daily and prn Resume all home medications prior to admission with the exception of Eliquis. Discharge Disposition: HOME SELF-CARE
[2024-06-02 12:04] LABS: Glucose,Whole Blood 237 mg/dL (70-110)
== END 2024-06-02 13:26 | disposition home or self-care (01) | DRG 605 ==
LOC: EC 00:46 → 3SCARD 05:22 → OBSVTOIN 05:22 → 3SCARD 06:30
PROVIDERS: ADMIT Internal Medicine; ATTEND Internal Medicine
PROC: 30233N1 Transfusion of Nonautologous Red Blood Cells into Peripheral Vein, Percutaneous Approach (ICD-10-PCS; 2024-05-31)
PROC: 0J9900Z Drainage of Buttock Subcutaneous Tissue and Fascia with Drainage Device, Open Approach (ICD-10-PCS; principal; 2024-06-01)
DX: S30.0XXA Contusion of lower back and pelvis, initial encounter (principal); D62 Acute posthemorrhagic anemia; E87.20 Acidosis, unspecified; N17.9 Acute kidney failure, unspecified; N39.0 Urinary tract infection, site not specified; E11.22 Type 2 diabetes mellitus with diabetic chronic kidney disease; E78.5 Hyperlipidemia, unspecified; G47.33 Obstructive sleep apnea (adult) (pediatric); I12.9 Hypertensive chronic kidney disease with stage 1 through stage 4 chronic kidney disease, or unspecified chronic kidney disease; I45.10 Unspecified right bundle-branch block; N18.31 Chronic kidney disease, stage 3a; R29.6 Repeated falls; Z91.81 History of falling; K21.9 Gastro-esophageal reflux disease without esophagitis; W19.XXXA Unspecified fall, initial encounter; Z79.01 Long term (current) use of anticoagulants; Z79.4 Long term (current) use of insulin; Z79.84 Long term (current) use of oral hypoglycemic drugs; Z79.899 Other long term (current) drug therapy; Z86.711 Personal history of pulmonary embolism; Z86.718 Personal history of other venous thrombosis and embolism; Z95.828 Presence of other vascular implants and grafts; Z98.84 Bariatric surgery status
CPT/HCPCS: 36415; 70450; 72100; 72125; 74176; 80048; 80053; 81003; 82550; 82728; 83036; 83540; 83550; 83605; 84484; 85025; 85027; 85610; 86850; 86900; 86901; 86920; 93005; 96361; 96374; 99285

== ENCOUNTER 2024-08-16 13:33 | Emergency (ER) | payer MEDICARE ==
--- NOTE | 2024-08-16 14:21 | ED ---
General Adult HPI - General Source: patient, RN notes reviewed, old records reviewed Mode of arrival: wheelchair Limitations: no limitations <Eusebio Quinn - Last Filed: 08/16/24 15:38> <Cali Carvalho - Last Filed: 08/16/24 17:55> - General Chief complaint: Arrhythmia/Palpitations Stated complaint: heart issues Time Seen by Provider: 08/16/24 13:39 - History of Present Illness Initial comments: 84-year-old female presenting with elevated blood pressure, palpitations, nausea. Symptoms have been ongoing for several weeks but the patient states that today she noted her blood pressure was quite elevated and was concerned. She denies central chest pain. She reports palpitations. No history of atrial fibrillation. She is on antihypertensive medication but is uncertain what these medications are. (Eusebio Quinn) - Related Data Home Medications Medication Instructions Recorded Confirmed Bisoprolol-Hctz 10-6.25 mg [Ziac 1 tab PO DAILY 07/06/14 08/16/24 10-6.25 MG] Diphenoxylate HCl/Atropine 2 tab PO QID PRN 01/30/18 08/16/24 [Lomotil 2.5-0.025 mg Tablet] metFORMIN HCL ER [Glucophage XR] 500 mg PO BID 11/15/22 08/16/24 Donepezil HCl [Aricept] 10 mg PO DAILY 05/29/24 08/16/24 Dulaglutide [Trulicity] 4.5 mg SQ MO 08/16/24 08/16/24 Empagliflozin [Jardiance] 25 mg PO DAILY 08/16/24 08/16/24 Ondansetron Odt [Zofran Odt] 4 mg PO Q8HR PRN 08/16/24 08/16/24 Valsartan 80 mg PO BID 08/16/24 08/16/24 Allergies Allergy/AdvReac Type Severity Reaction Status Date / Time No Known Allergies Allergy Verified 08/16/24 17:48 Review of Systems ROS Other: All systems not noted in ROS Statement are negative. <Eusebio Quinn - Last Filed: 08/16/24 15:38> ROS Other: All systems not noted in ROS Statement are negative. <Cali Carvalho - Last Filed: 08/16/24 17:55> ROS Statement: Those systems with pertinent positive or pertinent negative responses have been documented in the HPI. Past Medical History Past Medical History: Diabetes Mellitus, GERD/Reflux, Hyperlipidemia, Hypertension, Sleep Apnea/CPAP/BIPAP Additional Past Medical History / Comment(s): type 2 diabetes History of Any Multi-Drug Resistant Organisms: None Reported Past Surgical History: Bariatric Surgery Additional Past Surgical History / Comment(s): bariatric sleeve procedure, rt rotator cuff, tummy tuck, cataract surgery 11/05/22 IVF filter. Past Anesthesia/Blood Transfusion Reactions: Postoperative Nausea & Vomiting (PONV) Past Psychological History: No Psychological Hx Reported Smoking Status: Never smoker Past Alcohol Use History: None Reported Past Drug Use History: Marijuana - Past Family History Brother(s) Additional Family Medical History / Comment(s): colon cancer. <Eusebio Quinn - Last Filed: 08/16/24 15:38> General Exam Limitations: no limitations General appearance: alert, in no apparent distress, anxious Head exam: Present: atraumatic, normocephalic Eye exam: Present: normal appearance, PERRL ENT exam: Present: mucous membranes dry Neck exam: Present: normal inspection. Absent: tenderness, meningismus Respiratory exam: Present: normal lung sounds bilaterally. Absent: respiratory distress, wheezes Cardiovascular Exam: Present: normal rhythm, tachycardia GI/Abdominal exam: Present: soft. Absent: distended, tenderness, guarding Extremities exam: Present: normal inspection, normal capillary refill Neurological exam: Present: alert, oriented X3, CN II-XII intact. Absent: motor sensory deficit Psychiatric exam: Present: anxious Skin exam: Present: warm, dry, intact, normal color <Eusebio Quinn N - Last Filed: 08/16/24 15:38> Course Vital Signs 08/16/24 08/16/24 13:35 15:34 Temperature 98.0 F Pulse Rate 112 H 81 Respiratory 22 16 Rate Blood Pressure 190/109 139/99 O2 Sat by Pulse 96 99 Oximetry Medical Decision Making - Lab Data Result diagrams: 08/16/24 14:17 08/16/24 14:17 <Eusebio Quinn - Last Filed: 08/16/24 15:38> - Lab Data Result diagrams: 08/16/24 14:17 08/16/24 14:17 <Cali Carvalho - Last Filed: 08/16/24 17:55> - Medical Decision Making Was pt. sent in by a medical professional or institution (WYATT Carbajal, MOTION PICTURE EQUIPMENT SUPERVISOR, urgent care, hospital, or long term...) When possible be specific @ -No Did you speak to anyone other than the patient for history (EMS, parent, family, police, friend...)? What history was obtained from this source @ -No Did you review nursing and triage notes (agree or disagree)? Why? @ -I reviewed and agree with nursing and triage notes Were old charts reviewed (outside hosp., previous admission, EMS record, old EKG, old radiological studies, urgent care reports/EKG's, long term records)? Report findings @ -No old charts were reviewed Differential Palpitations Ventricular arrhythmias, atrial arrhythmias, myocardial infarction, anemia, thyrotoxicosis, electrolyte imbalance, hypokalemia, pulmonary embolism, pulmonary disease, drugs, alcohol, anxiety, stress.... This is not meant to be an all-inclusive list. EKG interpreted by me (3pts min.). @Sinus rhythm rate of 89, TX interval 122, QRS duration 85, QTc [address] segment elevation. X-rays interpreted by me (1pt min.). @ -Chest x-ray negative for acute cardiopulmonary findings CT interpreted by me (1pt min.). @ -None done U/S interpreted by me (1pt. min.). @ -None done What testing was considered but not performed or refused? (CT, X-rays, U/S, labs)? Why? @ -None What meds were considered but not given or refused? Why? @ -None Did you discuss the management of the patient with other professionals (professionals i.e. WYATT Carbajal, MOTION PICTURE EQUIPMENT SUPERVISOR, lab, RT, psych nurse, social services assistant, construction equipment overhauler, teacher, earth science technical officer, rn case management)? Give summary @ -No Was smoking cessation discussed for >3mins.? @ -No Was critical care preformed (if so, how long)? @ -No Were there social determinants of health that impacted care today? How? (Homelessness, low income, unemployed, alcoholism, drug addiction, transportation, low edu. Level, literacy, decrease access to med. care, assisted, rehab)? @ -No Was there de-escalation of care discussed even if they declined (Discuss DNR or withdrawal of care, Hospice)? DNR status @ -No What co-morbidities impacted this encounter? (DM, HTN, Smoking, COPD, CAD, Cancer, CVA, ARF, Chemo, Hep., AIDS, mental health diagnosis, sleep apnea, morbid obesity)? @Hypertension Was patient admitted / discharged? Hospital course, mention meds given and route, prescriptions, significant lab abnormalities, going to OR and other pertinent info. @ -84-year-old female presenting with palpitation, elevated blood pressure at home. Patient does appear somewhat anxious. Patient given IV fluid and IV magnesium replacement. Laboratory testing with the exception of hypomagnesemia is unremarkable. Chest x-ray is clear. Patient reevaluated, symptoms improved. Patient is encouraged on oral hydration and will take [id number] magnesium supplementation and monitor her blood pressure closely. Return parameters are discussed. Undiagnosed new problem with uncertain prognosis? @ -No Drug Therapy requiring intensive monitoring for toxicity (Heparin, Nitro, Insulin, Cardizem)? @ -No Were any procedures done? @ -No Diagnosis/symptom? @ -[Dehydration, palpitation Acute, or Chronic, or Acute on Chronic? @ -Acute Uncomplicated (without systemic symptoms) or Complicated (systemic symptoms)? @ -[default Side effects of treatment? @ -No Exacerbation, Progression, or Severe Exacerbation? @ -No Poses a threat to life or bodily function? How? (Chest pain, [place], ND, pneumonia, PE, COPD, DKA, ARF, appy, cholecystitis, CVA, Diverticulitis, Homicidal, Suicidal, threat to staff... and all critical care pts) @ -[Low risk at this time (Eusebio Quinn) Patient was seen and evaluated at bedside. Patient well-appearing. Patient care signed out to me by previous shift physician, Dr. Quinn. Briefly, patient is 84-year-old female presents emergency department with palpitations n ausea insomnia and hypertension. Plan at signout was to reevaluate patient after having had IV fluids and parenteral electrolyte replacement. Labs were reviewed. Patient not acidotic. She does have hyperglycemia 157 magnesium 1.4, 4+ glucosuria. Patient reevaluated at 5:55 PM found to be in stable condition. There is concern that perhaps patient may be having symptoms secondary to recent Jardiance use. Still to follow-up closely with her primary care doctor. (Cali Carvalho) - Lab Data Lab Results 08/16/24 08/16/24 08/16/24 Range/Units 14:17 14:17 14:17 WBC 5.8 (3.8-10.6) k/uL RBC 4.82 (3.80-5.40) m/uL Hgb 14.3 (11.4-16.0) gm/dL Hct 43.2 (34.0-46.0) % MCV 89.6 (80.0-100.0) fL MCH 29.7 (25.0-35.0) pg MCHC 33.2 (31.0-37.0) g/dL RDW 12.9 (11.5-15.5) % Plt Count 280 (150-450) k/uL MPV 6.9 Neutrophils % 61 % Lymphocytes % 30 % Monocytes % 5 % Eosinophils % 1 % Basophils % 0 % Neutrophils # 3.6 (1.3-7.7) k/uL Lymphocytes # 1.7 (1.0-4.8) k/uL Monocytes # 0.3 (0-1.0) k/uL Eosinophils # 0.1 (0-0.7) k/uL Basophils # 0.0 (0-0.2) k/uL PT 11.0 (10.0-12.5) sec INR 1.0 (<1.2) APTT 22.1 (22.0-30.0) sec Sodium (137-145) mmol/L Potassium (3.5-5.1) mmol/L Chloride (98-107) mmol/L Carbon Dioxide (22-30) mmol/L Anion Gap mmol/L BUN (7-17) mg/dL Creatinine (0.52-1.04) mg/dL Est GFR (CKD-EPI)AfAm (>60 ml/min/1.73 sqM) Est GFR (CKD-EPI)NonAf (>60 ml/min/1.73 sqM) Glucose (74-99) mg/dL Calcium (8.4-10.2) mg/dL Magnesium (1.6-2.3) mg/dL Total Bilirubin (0.2-1.3) mg/dL AST (14-36) U/L ALT (4-34) U/L Alkaline Phosphatase (38-126) U/L Troponin I (0.000-0.034) ng/mL Total Protein (6.3-8.2) g/dL Albumin (3.5-5.0) g/dL Urine Color Colorless Urine Appearance Clear (Clear) Urine pH 5.0 (5.0-8.0) Ur Specific [place] 1.036 H (1.001-1.035) Urine Protein Negative (Negative) Urine Glucose (UA) 4+ H (Negative) Urine Ketones Negative (Negative) Urine Blood Negative (Negative) Urine Nitrite Negative (Negative) Urine Bilirubin Negative (Negative) Urine Urobilinogen <2.0 (<2.0) mg/dL Ur Leukocyte Esterase Negative (Negative) 08/16/24 08/16/24 Range/Units 14:17 14:17 WBC (3.8-10.6) k/uL RBC (3.80-5.40) m/uL Hgb (11.4-16.0) gm/dL Hct (34.0-46.0) % MCV (80.0-100.0) fL MCH (25.0-35.0) pg MCHC (31.0-37.0) g/dL RDW (11.5-15.5) % Plt Count (150-450) k/uL MPV Neutrophils % % Lymphocytes % % Monocytes % % Eosinophils % % Basophils % % Neutrophils # (1.3-7.7) k/uL Lymphocytes # (1.0-4.8) k/uL Monocytes # (0-1.0) k/uL Eosinophils # (0-0.7) k/uL Basophils # (0-0.2) k/uL PT (10.0-12.5) sec INR (<1.2) APTT (22.0-30.0) sec Sodium 139 (137-145) mmol/L Potassium 4.5 (3.5-5.1) mmol/L Chloride 106 (98-107) mmol/L Carbon Dioxide 24 (22-30) mmol/L Anion Gap 9 mmol/L BUN 15 (7-17) mg/dL Creatinine 0.91 (0.52-1.04) mg/dL Est GFR (CKD-EPI)AfAm 67 (>60 ml/min/1.73 sqM) Est GFR (CKD-EPI)NonAf 59 (>60 ml/min/1.73 sqM) Glucose 157 H (74-99) mg/dL Calcium 9.5 (8.4-10.2) mg/dL Magnesium 1.4 L (1.6-2.3) mg/dL Total Bilirubin 0.9 (0.2-1.3) mg/dL AST 37 H (14-36) U/L ALT 20 (4-34) U/L Alkaline Phosphatase 94 (38-126) U/L Troponin I 0.012 (0.000-0.034) ng/mL Total Protein 8.0 (6.3-8.2) g/dL Albumin 4.8 (3.5-5.0) g/dL Urine Color Urine Appearance (Clear) Urine pH (5.0-8.0) Ur Specific [place] (1.001-1.035) Urine Protein (Negative) Urine Glucose (UA) (Negative) Urine Ketones (Negative) Urine Blood (Negative) Urine Nitrite (Negative) Urine Bilirubin (Negative) Urine Urobilinogen (<2.0) mg/dL Ur Leukocyte Esterase (Negative) Disposition Is patient prescribed a controlled substance at d/c from ED?: No Time of Disposition: 15:38 <Eusebio Quinn N - Last Filed: 08/16/24 15:38> Is patient prescribed a controlled substance at d/c from ED?: No <Cali Carvalho - Last Filed: 08/16/24 17:55> Clinical Impression: Palpitations, Dehydration Disposition: HOME SELF-CARE Condition: Good Instructions (If sedation given, give patient instructions): Heart Palpitations (ED) Referrals: Nicolette Ramírez MD [Primary Care Provider] - 1-2 days
[2024-08-16 14:28] LABS: Appearance,Urine Clear (Clear); Basophils % (A) 0 %; Bilirubin,Urine Negative (Negative); Blood,Urine Negative (Negative); Color,Urine Colorless; Eosinophils # (A) 0.1 k/uL (0-0.7); Eosinophils % (A) 1 %; Glucose,Urine (UA) 4+ (Negative); HCT 43.2 % (34.0-46.0); HGB 14.3 gm/dL (11.4-16.0); Ketones,Urine Negative (Negative); Leukocyte Esterase,Urine Negative (Negative); Lymphocytes # (A) 1.7 k/uL (1.0-4.8); Lymphocytes % (A) 30 %; MCH 29.7 pg (25.0-35.0); MCHC 33.2 g/dL (31.0-37.0); MCV 89.6 fL (80.0-100.0); Mean Platelet Volume 6.9; Monocytes # (A) 0.3 k/uL (0-1.0); Monocytes % (A) 5 %; Neutrophils # (A) 3.6 k/uL (1.3-7.7); Neutrophils % (A) 61 %; Nitrite,Urine Negative (Negative); Platelet Count 280 k/uL (150-450); Protein,Urine Negative (Negative); RBC 4.82 m/uL (3.80-5.40); RDW 12.9 % (11.5-15.5); Specific Gravity,Urine 1.036 (1.001-1.035); Urobilinogen,Urine <2.0 mg/dL (<2.0); WBC 5.8 k/uL (3.8-10.6)
[2024-08-16] MEDS: SODIUM CHLORIDE 0.9% 1,000 ML IV STA (14:31)
[2024-08-16 14:55] LABS: ALT 20 U/L (4-34); African American GFR (CKD) 67 (>60 ml/min/1.73 sqM); Anion Gap 9 mmol/L; Blood Urea Nitrogen 15 mg/dL (7-17); Calcium 9.5 mg/dL (8.4-10.2); Carbon Dioxide 24 mmol/L (22-30); Chloride 106 mmol/L (98-107); Glucose 157 mg/dL (74-99); Non-African American GFR(CKD) 59 (>60 ml/min/1.73 sqM); Sodium 139 mmol/L (137-145)
[2024-08-16 15:00] LABS: AST 37 U/L (14-36); Albumin 4.8 g/dL (3.5-5.0); Alkaline Phosphatase 94 U/L (38-126); Potassium 4.5 mmol/L (3.5-5.1); Total Bilirubin 0.9 mg/dL (0.2-1.3)
[2024-08-16 15:01] LABS: Magnesium 1.4 mg/dL (1.6-2.3); Partial Thromboplastin Time 22.1 sec (22.0-30.0)
--- NOTE | 2024-08-16 15:12 | XR ---
EXAMINATION TYPE: XR chest 2V DATE OF EXAM: 08/16/2024 COMPARISON: NONE CLINICAL INDICATION: Female, 84 years old with history of dysrhythmia; , TECHNIQUE: XR chest 2V views of the chest. FINDINGS: The lungs are clear and there is no pneumothorax, pleural effusion, or focal pneumonia. Heart size normal and no overt failure. Osseous structures demonstrate hypertrophic and degenerative changes of the spine. Right hemidiaphragm. Arthropathy of the shoulders. IVC filter in the abdomen and cholecyst ectomy clips. IMPRESSION: 1. No acute process. [facility] Anatoliy Workman, , 08/16/2024 3:10 PM
[2024-08-16] MEDS: MAGNESIUM SULFATE-D5W PMX 1 GM in DEXTROSE/WATER 1 100ML.BAG IVPB ONE (15:46)
[2024-08-16 18:29] VITALS: BP 189/93; PULSE 87; RESP 18; TEMP 97.9
== END 2024-08-16 18:29 | disposition home or self-care (01) ==
LOC: EC 13:33
DX: R00.2 Palpitations (principal); E86.0 Dehydration; I10 Essential (primary) hypertension; R00.0 Tachycardia, unspecified; Z79.899 Other long term (current) drug therapy
CPT/HCPCS: 36415; 93005; 80053; 83735; 84484; 85025; 85610; 85730; 81003; 71046; 99285; 96365; 96366 ×2; J3475

== ENCOUNTER → 2024-08-20 | Outpatient (CLI) | payer MEDICARE ==
[2024-08-20 16:05] LABS: Blood Urea Nitrogen 7.5 mg/dL (9.0-27.0); Chol/HDL Ratio 2.17 Ratio; Glucose 161 mg/dL (70-110); LDL Cholesterol,Calculated 26.4 mg/dL (0.0-131.0)
[2024-08-20 16:06] LABS: Calcium 9.3 mg/dL (8.7-10.3); Chloride 102 mmol/L (96-109); Potassium 3.7 mmol/L (3.5-5.5); Sodium 144 mmol/L (135-145)
== END | disposition home or self-care (01) ==
LOC: LABWHC1 09:31
PROVIDERS: ATTEND Internal Medicine Clinical Cardiac Electrophysiology
DX: I10 Essential (primary) hypertension (principal); E78.5 Hyperlipidemia, unspecified; E11.65 Type 2 diabetes mellitus with hyperglycemia
CPT/HCPCS: 36415; 80048; 80061; 84443

== ENCOUNTER 2024-09-06 21:00 | Observation (INO) | payer MEDICARE ==
[2024-09-06] MEDS: SODIUM CHLORIDE 0.9% 1,000 ML IV STA ×2 (21:26→21:54)
--- NOTE | 2024-09-06 21:26 | ED ---
Nausea/Vomiting/Diarrhea HPI - General Chief complaint: Nausea/Vomiting/Diarrhea Stated complaint: NVD Time Seen by Provider: 09/06/24 21:03 Source: patient, EMS, RN notes reviewed Mode of arrival: EMS Limitations: no limitations - History of Present Illness Initial comments: This is an 84-year-old female who presents to the emergency department for naus ea and vomiting. States that this has been an ongoing issue for the last couple of weeks that seems to be getting worse over the last couple of days. Denies any abdominal pain. States that she always has diarrhea but does not believe it is any worse than usual. She is only nauseous when she tries to eat or drink something, in which case she states that she throws it right back up. She is not currently nauseous. She is concerned about being unable to keep anything down. She does have diabetes and states that her sugars have been in the 300s. MD complaint: nausea, vomiting - Related Data Home Medications Medication Instructions Recorded Confirmed Bisoprolol-Hctz 10-6.25 mg [Ziac 1 tab PO DAILY 07/06/14 08/16/24 10-6.25 MG] Diphenoxylate HCl/Atropine 2 tab PO QID PRN 01/30/18 08/16/24 [Lomotil 2.5-0.025 mg Tablet] metFORMIN HCL ER [Glucophage XR] 500 mg PO BID 11/15/22 08/16/24 Donepezil HCl [Aricept] 10 mg PO DAILY 05/29/24 08/16/24 Dulaglutide [Trulicity] 4.5 mg SQ MO 08/16/24 08/16/24 Empagliflozin [Jardiance] 25 mg PO DAILY 08/16/24 08/16/24 Ondansetron Odt [Zofran Odt] 4 mg PO Q8HR PRN 08/16/24 08/16/24 Valsartan 80 mg PO BID 08/16/24 08/16/24 Allergies Allergy/AdvReac Type Severity Reaction Status Date / Time No Known Allergies Allergy Verified 08/16/24 17:48 Review of Systems ROS Statement: Those systems with pertinent positive or pertinent negative responses have been documented in the HPI. ROS Other: All systems not noted in ROS Statement are negative. Past Medical History Past Medical History: Diabetes Mellitus, GERD/Reflux, Hyperlipidemia, Hypertension, Sleep Apnea/CPAP/BIPAP Additional Past Medical History / Comment(s): type 2 diabetes History of Any Multi-Drug Resistant Organisms: None Reported Past Surgical History: Bariatric Surgery Additional Past Surgical History / Comment(s): bariatric sleeve procedure, rt rotator cuff, tummy tuck, cataract surgery 11/05/22 IVF filter. Past Anesthesia/Blood Transfusion Reactions: Postoperative Nausea & Vomiting (PONV) Past Psychological History: No Psychological Hx Reported Smoking Status: Never smoker Past Alcohol Use History: None Reported Past Drug Use History: Marijuana - Past Family History Brother(s) Additional Family Medical History / Comment(s): colon cancer. General Exam Limitations: no limitations General appearance: alert, in no apparent distress Head exam: Present: atraumatic, normocephalic, normal inspection Respiratory exam: Present: normal lung sounds bilaterally. Absent: respiratory distress, wheezes, rales, rhonchi, stridor Cardiovascular Exam: Present: normal rhythm, tachycardia GI/Abdominal exam: Present: soft, normal bowel sounds. Absent: distended, tenderness, guarding, rebound, rigid Neurological exam: Present: alert, oriented X3, CN II-XII intact Psychiatric exam: Present: normal affect, normal mood Skin exam: Present: warm, dry, intact, normal color. Absent: rash Course Vital Signs 09/06/24 09/06/24 09/06/24 21:04 23:20 23:54 Temperature 99.5 F 97.8 F Pulse Rate 120 H 106 H Respiratory 17 18 Rate Blood Pressure 130/72 145/84 O2 Sat by Pulse 96 95 Oximetry Medical Decision Making - Medical Decision Making This is an 84 year old female who presents to the emergency department for nause a and vomiting. Was pt. sent in by a medical professional or institution? @ -No Did you speak to anyone other than the patient for history? @ -No Did you review nursing and triage notes? @ -Yes, and I agree, it is accurate with regards to the patient's symptoms. Were old charts reviewed? @ -No Differential Diagnosis? @ -Differential Nausea and Vomiting: Gastroenteritis, cholecystitis, appendicitis, pancreatitis, migraine, benign positional vertigo, food borne illness, pyelonephritis, irritable bowel syndrome, influenza, Covid, GERD, incarcerated hernia, intestinal obstruction, this is not meant to be an all-inclusive list. EKG interpreted by me (3pts min.)? @ -EKG interpreted by me demonstrating the following: Sinus tachycardia. Ventricular rate 116 bpm, IL interval 139 ms, QRS duration 82 ms, QTc 383 ms. X-rays interpreted by me (1pt min.)? @ -Not obtained CT interpreted by me (1pt min.)? @ -Not obtained U/S interpreted by me (1pt. min.)? @ -Not obtained What testing was considered but not performed? (CT, X-rays, U/S, labs)? Why? @ -None What meds were considered but not given? Why? @ -None Did you discuss the management of the patient with other professionals? @ -Yes, Dr. Forrester, who accepts the patient for admission. Did you reconcile home meds? @ -No Was smoking cessation discussed for >3mins.? @ -No Was critical care preformed (if so, how long)? @ -No Were there social determinants of health that impacted care today? How? (Homelessness, low income, unemployed, alcoholism, drug addiction, transportation, low edu. Level, literacy, decrease access to med. care, assisted, rehab)? @ -No Was there de-escalation of care discussed even if they declined? (Discuss DNR or withdrawal of care, Hospice)? @ -No What co-morbidities impacted this encounter? (DM, HTN, Smoking, COPD, CAD, Cancer, CVA, Hep., AIDS, mental health diagnosis, sleep apnea, morbid obesity)? @ -DM, HLD, HTN Was patient admitted / discharged? @ -Admitted. Lab work demonstrates signs of mild acidosis with a bicarb of 18, anion gap of 15, and acetone positive. pH is 7.25. Blood sugar is 224. Magnesium is 1.2. COVID, influenza, and RSV testing negative. 800mg magnesium oxide and 2g magnesium sulfate administered along with 2L of IV fluids. Patient continued to report that she felt very weak and fatigued. She was subsequently admitted to medicine for further management of the hypomagnesemia, weakness, nausea/vomiting. UA ordered but pending at the time of admission. Case discussed with ED attending, Dr. Quinn. Undiagnosed new problem with uncertain prognosis? @ -None Drug Therapy requiring intensive monitoring for toxicity (Heparin, Nitro, Insulin, Cardizem)? @ -None Were any procedures done? @ -None Diagnosis/symptom? @ -Hypomagnesemia, nausea and vomiting, weakness Acute, or Chronic, or Acute on Chronic? @ -Acute Uncomplicated (without systemic symptoms) or Complicated (systemic symptoms)? @ -Complicated Side effects of treatment? @ -No Exacerbation, Progression, or Severe Exacerbation] @ -Not applicable Poses a threat to life or bodily function? @ -Yes, patient states that she is struggling to function due to her symptoms. - Lab Data Result diagrams: 09/06/24 21:19 09/06/24 21:19 Lab Results 09/06/24 09/06/24 09/06/24 Range/Units 21:19 21:19 21:19 WBC 6.2 (3.8-10.6) k/uL RBC 5.07 (3.80-5.40) m/uL Hgb 14.8 (11.4-16.0) gm/dL Hct 45.3 (34.0-46.0) % MCV 89.3 (80.0-100.0) fL MCH 29.2 (25.0-35.0) pg MCHC 32.7 (31.0-37.0) g/dL RDW 13.1 (11.5-15.5) % Plt Count 261 (150-450) k/uL MPV 6.8 Neutrophils % 90 % Lymphocytes % 6 % Monocytes % 2 % Eosinophils % 1 % Basophils % 0 % Neutrophils # 5.6 (1.3-7.7) k/uL Lymphocytes # 0.4 L (1.0-4.8) k/uL Monocytes # 0.1 (0-1.0) k/uL Eosinophils # 0.1 (0-0.7) k/uL Basophils # 0.0 (0-0.2) k/uL VBG pH (7.31-7.41) VBG pCO2 (37-51) mmHg VBG HCO3 (24-28) mmol/L Sodium 137 (137-145) mmol/L Potassium 3.7 (3.5-5.1) mmol/L Chloride 104 (98-107) mmol/L Carbon Dioxide 18 L (22-30) mmol/L Anion Gap 15 mmol/L BUN 22 H (7-17) mg/dL Creatinine 1.01 (0.52-1.04) mg/dL Est GFR (CKD-EPI)AfAm 60 (>60 ml/min/1.73 sqM) Est GFR (CKD-EPI)NonAf 52 (>60 ml/min/1.73 sqM) Glucose 224 H (74-99) mg/dL Plasma Lactic Acid Antonio 1.5 (0.7-2.0) mmol/L Calcium 8.6 (8.4-10.2) mg/dL Phosphorus 3.4 (2.5-4.5) mg/dL Magnesium 1.2 L (1.6-2.3) mg/dL Total Bilirubin 0.8 (0.2-1.3) mg/dL AST 41 H (14-36) U/L ALT 26 (4-34) U/L Alkaline Phosphatase 93 (38-126) U/L Total Protein 6.5 (6.3-8.2) g/dL Albumin 3.8 (3.5-5.0) g/dL Amylase 66 (30-110) U/L Lipase 60 (23-300) U/L Acetone, Qual Positive (Negative) Influenza Type A (PCR) (Not Detectd) Influenza Type B (PCR) (Not Detectd) RSV (PCR) (Not Detectd) SARS-CoV-2 (PCR) (Not Detectd) 09/06/24 09/06/24 Range/Units 21:35 22:41 WBC (3.8-10.6) k/uL RBC (3.80-5.40) m/uL Hgb (11.4-16.0) gm/dL Hct (34.0-46.0) % MCV (80.0-100.0) fL MCH (25.0-35.0) pg MCHC (31.0-37.0) g/dL RDW (11.5-15.5) % Plt Count (150-450) k/uL MPV Neutrophils % % Lymphocytes % % Monocytes % % Eosinophils % % Basophils % % Neutrophils # (1.3-7.7) k/uL Lymphocytes # (1.0-4.8) k/uL Monocytes # (0-1.0) k/uL Eosinophils # (0-0.7) k/uL Basophils # (0-0.2) k/uL VBG pH 7.25 L (7.31-7.41) VBG pCO2 48 (37-51) mmHg VBG HCO3 21 L (24-28) mmol/L Sodium (137-145) mmol/L Potassium (3.5-5.1) mmol/L Chloride (98-107) mmol/L Carbon Dioxide (22-30) mmol/L Anion Gap mmol/L BUN (7-17) mg/dL Creatinine (0.52-1.04) mg/dL Est GFR (CKD-EPI)AfAm (>60 ml/min/1.73 sqM) Est GFR (CKD-EPI)NonAf (>60 ml/min/1.73 sqM) Glucose (74-99) mg/dL Plasma Lactic Acid Antonio (0.7-2.0) mmol/L Calcium (8.4-10.2) mg/dL Phosphorus (2.5-4.5) mg/dL Magnesium (1.6-2.3) mg/dL Total Bilirubin (0.2-1.3) mg/dL AST (14-36) U/L ALT (4-34) U/L Alkaline Phosphatase (38-126) U/L Total Protein (6.3-8.2) g/dL Albumin (3.5-5.0) g/dL Amylase (30-110) U/L Lipase (23-300) U/L Acetone, Qual (Negative) Influenza Type A (PCR) Not Detected (Not Detectd) Influenza Type B (PCR) Not Detected (Not Detectd) RSV (PCR) Not Detected (Not Detectd) SARS-CoV-2 (PCR) Not Detected (Not Detectd) Disposition Clinical Impression: Hypomagnesemia, Weakness, Nausea and vomiting Disposition: ADMITTED IP TO THIS HOSP
[2024-09-06 21:34] LABS: Basophils % (A) 0 %; Eosinophils # (A) 0.1 k/uL (0-0.7); Eosinophils % (A) 1 %; HCT 45.3 % (34.0-46.0); HGB 14.8 gm/dL (11.4-16.0); Lymphocytes # (A) 0.4 k/uL (1.0-4.8); Lymphocytes % (A) 6 %; MCH 29.2 pg (25.0-35.0); MCHC 32.7 g/dL (31.0-37.0); MCV 89.3 fL (80.0-100.0); Mean Platelet Volume 6.8; Monocytes # (A) 0.1 k/uL (0-1.0); Monocytes % (A) 2 %; Neutrophils # (A) 5.6 k/uL (1.3-7.7); Neutrophils % (A) 90 %; Platelet Count 261 k/uL (150-450); RBC 5.07 m/uL (3.80-5.40); RDW 13.1 % (11.5-15.5); WBC 6.2 k/uL (3.8-10.6)
[2024-09-06 21:47] LABS: ALT 26 U/L (4-34); AST 41 U/L (14-36); African American GFR (CKD) 60 (>60 ml/min/1.73 sqM); Albumin 3.8 g/dL (3.5-5.0); Alkaline Phosphatase 93 U/L (38-126); Amylase 66 U/L (30-110); Anion Gap 15 mmol/L; Blood Urea Nitrogen 22 mg/dL (7-17); Calcium 8.6 mg/dL (8.4-10.2); Carbon Dioxide 18 mmol/L (22-30); Chloride 104 mmol/L (98-107); Glucose 224 mg/dL (74-99); Lipase 60 U/L (23-300); Magnesium 1.2 mg/dL (1.6-2.3); Non-African American GFR(CKD) 52 (>60 ml/min/1.73 sqM); Phosphorus 3.4 mg/dL (2.5-4.5); Potassium 3.7 mmol/L (3.5-5.1); Sodium 137 mmol/L (137-145); Total Bilirubin 0.8 mg/dL (0.2-1.3); Total Protein 6.5 g/dL (6.3-8.2)
[2024-09-06] MEDS: SODIUM CHLORIDE 0.9% 500 ML 500 ML IV STA ×2 (21:53→23:53)
[2024-09-06] MEDS: MAGNESIUM OXIDE 400 MG TAB PO STA ×2 (22:07)
[2024-09-06] MEDS: MAGNESIUM SULFATE-D5W PMX 1 GM in DEXTROSE/WATER 1 100ML.BAG IVPB SCH (22:08)
[2024-09-06 22:36] LABS: Influenza A Not Detected (Not Detectd); Influenza B Not Detected (Not Detectd); RSV Not Detected (Not Detectd)
[2024-09-06 23:03] LABS: VBG PH 7.25 (7.31-7.41)
[2024-09-06] MEDS ORDERED: INSULIN REGULAR 100 UNIT in SODIUM CHLORIDE 0.9% 100 ML IV SCH (23:30)
[2024-09-06] MEDS ORDERED: SODIUM CHLORIDE 0.9% 1,000 ML IV SCH (23:30)
[2024-09-06] MEDS ORDERED: D5-0.45% NACL WITH KCL 20MEQ/L 1,000 ML IV SCH (23:30)
[2024-09-06 23:51] LABS: Glucose,Whole Blood 201 mg/dL (70-110)
[2024-09-07] MEDS ORDERED: MORPHINE SULFATE 4 MG/ML SYRINGE IV PRN (01:01)
[2024-09-07] MEDS ORDERED: ONDANSETRON 4 MG/2 ML VIAL IVP PRN (01:01)
[2024-09-07] MEDS ORDERED: HYDROcodone/APAP 5-325MG 1 EACH TAB PO PRN (01:01)
[2024-09-07] MEDS ORDERED: NALOXONE 0.4 MG/ML 1 ML VIAL IV PRN (01:01)
[2024-09-07] MEDS: SODIUM CHLORIDE 0.9% 1,000 ML IV SCH (01:26)
--- NOTE | 2024-09-07 02:44 | P.HPIM ---
History of Present Illness H&P Date: 09/07/24 Patient is a 84-year-old female with PMH of hypertension, type 2 diabetes, history of DVT not on anticoagulation, sleep apnea, GERD, hyperlipidemia presented to the ER with multiple episodes of vomiting along with nausea x 4 weeks which seems to be getting progressively worse. Patient stated the last time when she was at home she was eating and felt like choking started having this intractable nausea. She immediately become concerned and came to the ER for further evaluation. Patient reports no similar episodes. Patient denies any episodes of hematemesis. Patient states that she has never experienced anything like this in the past .She denies dysphagia but does admit to have a poor appetite since last 4 weeks and have lost about 15 pounds. Patient reports that her last vomiting episode was prior to coming to the hospital about 7 hours ago. There has been no changes in her medications recently except for that there has been increase in her dosage of her Trulicity that she was using for weight loss. She has also been noticing certain side effects such as upset stomach since starting Trulicity. Patient states that she occasionally monitors her blood sugar level at home and have found that her recent sugar levels has been ranging around 300s. Patient denies any headaches, shortness of breath, chest pain dizziness, fever, chills, but does report generalized weakness. Patient otherwise reports that she is compliant with her medications. Laboratory data: WBC 6.2, hemoglobin 14.8, MCV 89.0, platelet count 261, blood gas; pH 7.25, pCO2 48, HCO3 21; sodium 137, potassium 3.7, chloride 104, bicarb 18, anion gap 14, BUN 22, creatinine 1.01, GFR 52, glucose 244, lactic acid 1.5, magnesium 1.2, total bilirubin 0.8, AST 41, ALT 26, qualitative acetone positive Viral serology negative Images: EKG interpreted independently shows sinus tachycardia. Normal NC interval 139, normal QRS duration of 82, QTc 384 ms. Poor R wave progression. Vitals: Tmax 99.5 F, pulse rate 120, respiratory 17, blood pressure 132/72, oxygen saturation 96% on room air. Review of systems: Pertinent positives and negatives as discussed in HPI, a complete review of systems was performed and all other systems are negative. Social history: Tobacco: None Alcohol: None Recreational drugs: None Travel: None Family History: Mother has type 2 diabetes Physical examination: Vital signs reviewed General: non toxic, no distress, appears at stated age, overweight Derm: no unusual rashes/lesions, warm Head: atraumatic, normocephalic, symmetric Eyes: EOMI, no lid lag, anicteric sclera, pupils equal round reactive to light ENT: Nose and ears atraumatic Neck: No cervical lymphadenopathy, trachea midline, supple Mouth: no lip lesion, mucus membranes moist Cardiovascular: S1S2 reg, no murmur, positive dorsalis pedis pulse bilateral, no edema Lungs: CTA bilateral, no rhonchi, no rales, no accessory muscle use Abdominal: soft, nontender to palpation, no guarding Ext: muscle strength 5 out of 5 in all 4 extremities grossly, no gross muscle atrophy, no contractures, Neuro: CN II-XI grossly intact, no gross focal neuro deficits Psych: Alert, oriented, appropriate affect Assessment/Plan: This is a 84-year-old female with PMH of hypertension, type 2 diabetes, history of DVT not on anticoagulation, sleep apnea, GERD, hyperlipidemia presented to the ER with multiple episodes of vomiting along with nausea x 4 weeks which seems to be getting progressively worse. Case was discussed with the Emergency Room provider and decision was made to admit the patient for diabetic ke toacidosis. Active problems: #Ketoacidosis. starvation vs diabetic Serum glucose 244, lactic acid 1.5,, acetone positive Blood gas: pH 7.25, pCO2 48, HCO3 21 anion gap 15 Serum potassium is 3.7 Give 10 to 20 mEq of KCl in each liter of IV fluid to keep the serum potassium level between 4 to 5 meq mL per liter Aggressive IV hydration: Patient has received 3 L of normal saline in ED At 0.9% sodium chloride with KCl 20 mEq/L Continue to monitor serum potassium level Continue to monitor serum sugar level every hour #Type 2 diabetes mellitus #Diabetic gastroparesis Intractable nausea and vomiting Continue with Zofran 4 mg IVP every 8 hour as needed Consider gastric emptying test outpatient Order HbA1c Last HbA1c in 05/30/2024 was 8.2% Order urinalysis #Hypomagnesemia Magnesium 1.2 4 mg of p.o. once stat magnesium x 2 given in ER Continue to monitor magnesium level Repeat medication in the morning #Transaminases AST 41, ALT 26, ALP 93, Continue monitor CMP Chronic problem: Hypertension: Resume medications once reconciled DVT prophylaxis: Lovenox 40 mg p.o. daily GI prophylaxis: Protonix 40 mg IV daily F: 75 cc normal saline per hour E: Replete as needed N: Carbohydrate consistent diet A: Ambulatory at baseline The patient is admitted with an anticipated more than than 2 midnight stay for evaluation of diabetic ketoacidosis CODE STATUS: Full code Discussed with: Patient Anticipated discharge place: Pending clinical course Dictation was produced using [employer] dictation software. Please excuse any grammatical, word or spelling errors. Past Medical History Past Medical History: Diabetes Mellitus, GERD/Reflux, Hyperlipidemia, Hypertension, Sleep Apnea/CPAP/BIPAP Additional Past Medical History / Comment(s): type 2 diabetes History of Any Multi-Drug Resistant Organisms: None Reported Past Surgical History: Bariatric Surgery Additional Past Surgical History / Comment(s): bariatric sleeve procedure, rt rotator cuff, tummy tuck, cataract surgery 11/05/22 IVF filter. Past Anesthesia/Blood Transfusion Reactions: Postoperative Nausea & Vomiting (PONV) Past Psychological History: No Psychological Hx Reported Smoking Status: Never smoker Past Alcohol Use History: None Reported Past Drug Use History: Marijuana - Past Family History Brother(s) Additional Family Medical History / Comment(s): colon cancer. Medications and Allergies Home Medications Medication Instructions Recorded Confirmed Type Bisoprolol-Hctz 10-6.25 mg [Ziac 1 tab PO DAILY 07/06/14 08/16/24 History 10-6.25 MG] Diphenoxylate HCl/Atropine 2 tab PO QID PRN 01/30/18 08/16/24 History [Lomotil 2.5-0.025 mg Tablet] metFORMIN HCL ER [Glucophage XR] 500 mg PO BID 11/15/22 08/16/24 History Donepezil HCl [Aricept] 10 mg PO DAILY 05/29/24 08/16/24 History Dulaglutide [Trulicity] 4.5 mg SQ MO 08/16/24 08/16/24 History Empagliflozin [Jardiance] 25 mg PO DAILY 08/16/24 08/16/24 History Ondansetron Odt [Zofran Odt] 4 mg PO Q8HR PRN 08/16/24 08/16/24 History Valsartan 80 mg PO BID 08/16/24 08/16/24 History Allergies Allergy/AdvReac Type Severity Reaction Status Date / Time No Known Allergies Allergy Verified 08/16/24 17:48 Physical Exam Vitals: Vital Signs Temp Pulse Resp BP Pulse Ox 09/06/24 23:54 97.8 F 09/06/24 23:20 106 H 18 145/84 95 09/06/24 21:04 99.5 F 120 H 17 130/72 96 Intake and Output 09/06/24 09/06/24 09/07/24 14:59 22:59 06:59 Other: Weight 70.307 kg Results CBC & Chem 7: 09/06/24 21:19 09/06/24 21:19 Labs: Abnormal Lab Results - Last 24 Hours (Table) 09/06/24 09/06/24 09/06/24 Range/Units 21:19 21:19 22:41 Lymphocytes # 0.4 L (1.0-4.8) k/uL VBG pH 7.25 L (7.31-7.41) VBG HCO3 21 L (24-28) mmol/L Carbon Dioxide 18 L (22-30) mmol/L BUN 22 H (7-17) mg/dL Glucose 224 H (74-99) mg/dL POC Glucose (mg/dL) (70-110) mg/dL Magnesium 1.2 L (1.6-2.3) mg/dL AST 41 H (14-36) U/L 09/06/24 Range/Units 23:50 Lymphocytes # (1.0-4.8) k/uL VBG pH (7.31-7.41) VBG HCO3 (24-28) mmol/L Carbon Dioxide (22-30) mmol/L BUN (7-17) mg/dL Glucose (74-99) mg/dL POC Glucose (mg/dL) 201 H (70-110) mg/dL Magnesium (1.6-2.3) mg/dL AST (14-36) U/L
[2024-09-07] MEDS: INSULIN ASPART (NovoLOG) 100 UNIT/ML VIAL SQ SCH (07:53)
[2024-09-07 08:03] LABS: Glucose,Whole Blood 131 mg/dL (70-110)
[2024-09-07 09:34] LABS: BUN/Creat Ratio 18.11 Ratio (12.00-20.00); Blood Urea Nitrogen 16.3 mg/dL (9.0-27.0); Chloride 108 mmol/L (96-109); Glucose 155 mg/dL (70-110); Potassium 3.4 mmol/L (3.5-5.5); Sodium 140 mmol/L (135-145)
[2024-09-07 09:35] LABS: ALT 20 U/L (8-44); AST 25 U/L (13-35); Albumin 3.6 g/dL (3.8-4.9); Albumin/Globulin Ratio 1.57 Ratio (1.60-3.17); Alkaline Phosphatase 78 U/L (41-126); Calcium 7.9 mg/dL (8.7-10.3); Carbon Dioxide 19.7 mmol/L (21.6-31.8); Globulin 2.3 g/dL (1.6-3.3); Total Bilirubin 0.4 mg/dL (0.3-1.2); Total Protein 5.9 g/dL (6.2-8.2)
[2024-09-07 10:20] LABS: Basophils # (A) 0.01 X 10*3/uL (0.00-0.10); Basophils % (A) 0.3 %; Eosinophils # (A) 0 X 10*3/uL (0.04-0.35); Eosinophils % (A) 0 %; HCT 40.2 % (37.2-46.3); HGB 12.7 g/dL (12.0-15.0); Lymphocytes # (A) 0.61 X 10*3/uL (0.90-5.00); Lymphocytes % (A) 16.8 %; MCH 28.2 pg (27.0-32.0); MCHC 31.6 g/dL (32.0-37.0); MCV 89.1 FL (80.0-97.0); Mean Platelet Volume 9.7 FL (9.5-12.2); Monocytes # (A) 0.17 X 10*3/uL (0.20-1.00); Monocytes % (A) 4.7 %; NRBC Per 100 WBC 0 X 10*3/uL (0.00-0.01); Neutrophils # (A) 2.84 X 10*3/uL (1.80-7.70); Neutrophils % (A) 77.9 %; Platelet Count 266 X 10*3/uL (140-440); RBC 4.51 X 10*6/uL (4.10-5.20); RDW 12.7 % (11.5-14.5); WBC 3.64 X 10*3/uL (4.50-10.00)
[2024-09-07] MEDS: PANTOPRAZOLE 40 MG/10 ML VIAL IV SCH (10:21)
[2024-09-07] MEDS: POTASSIUM CHLORIDE ER 20 MEQ TAB.ER PO STA (11:56)
[2024-09-07] MEDS: amLODIPine 10 MG TAB PO SCH (11:56)
[2024-09-07 12:33] LABS: Glucose,Whole Blood 169 mg/dL (70-110)
[2024-09-07 15:06] LABS: African American GFR (CKD) 69 (>60 ml/min/1.73 sqM); Anion Gap 9 mmol/L; Blood Urea Nitrogen 16 mg/dL (7-17); Calcium 8.2 mg/dL (8.4-10.2); Carbon Dioxide 19 mmol/L (22-30); Chloride 109 mmol/L (98-107); Glucose 228 mg/dL (74-99); Non-African American GFR(CKD) 60 (>60 ml/min/1.73 sqM); Potassium 3.7 mmol/L (3.5-5.1); Sodium 137 mmol/L (137-145)
[2024-09-07] MEDS: GABAPENTIN 100 MG CAP PO SCH (15:27)
[2024-09-07 17:35] LABS: Glucose,Whole Blood 181 mg/dL (70-110)
[2024-09-07 18:11] LABS: Appearance,Urine Clear (Clear); Bilirubin,Urine Negative (Negative); Blood,Urine Negative (Negative); Color,Urine Colorless; Glucose,Urine (UA) 4+ (Negative); Ketones,Urine Negative (Negative); Leukocyte Esterase,Urine Negative (Negative); Nitrite,Urine Negative (Negative); Protein,Urine Negative (Negative); Specific Gravity,Urine 1.019 (1.001-1.035); Urobilinogen,Urine <2.0 mg/dL (<2.0)
[2024-09-07 20:53] LABS: Glucose,Whole Blood 214 mg/dL (70-110)
[2024-09-07] MEDS: ATORVASTATIN 20 MG TAB PO SCH (20:55)
[2024-09-07] MEDS: MELATONIN 5 MG TABLET PO SCH (20:55)
[2024-09-08] MEDS: ACETAMINOPHEN TAB 325 MG TAB PO PRN (03:48)
[2024-09-08 06:32] LABS: Glucose,Whole Blood 176 mg/dL (70-110)
[2024-09-08 08:11] VITALS: BP 128/74; PULSE 82; RESP 17; TEMP 98.3
[2024-09-08] MEDS: INSULIN DETEMIR (LEVEMIR) 100 UNIT/ML SYR SQ SCH (08:12)
[2024-09-08] MEDS ORDERED: NON FORMULARY DRUG (Lansoprazole [Prevacid] 30 MG Capsule.Dr) PO SCH (09:00)
[2024-09-08 09:39] LABS: Basophils # (A) 0.01 X 10*3/uL (0.00-0.10); Basophils % (A) 0.3 %; Eosinophils # (A) 0.06 X 10*3/uL (0.04-0.35); Eosinophils % (A) 1.6 %; HCT 37.9 % (37.2-46.3); HGB 12.2 g/dL (12.0-15.0); Lymphocytes # (A) 0.98 X 10*3/uL (0.90-5.00); Lymphocytes % (A) 26.5 %; MCH 28.7 pg (27.0-32.0); MCHC 32.2 g/dL (32.0-37.0); MCV 89.2 FL (80.0-97.0); Mean Platelet Volume 9.4 FL (9.5-12.2); Monocytes # (A) 0.36 X 10*3/uL (0.20-1.00); Monocytes % (A) 9.7 %; NRBC Per 100 WBC 0 X 10*3/uL (0.00-0.01); Neutrophils # (A) 2.27 X 10*3/uL (1.80-7.70); Neutrophils % (A) 61.4 %; Platelet Count 235 X 10*3/uL (140-440); RBC 4.25 X 10*6/uL (4.10-5.20); RDW 12.8 % (11.5-14.5)
[2024-09-08 10:32] LABS: ALT 16 U/L (8-44); AST 20 U/L (13-35); Albumin 3.3 g/dL (3.8-4.9); Albumin/Globulin Ratio 1.43 Ratio (1.60-3.17); Alkaline Phosphatase 74 U/L (41-126); Blood Urea Nitrogen 15.1 mg/dL (9.0-27.0); Calcium 8.1 mg/dL (8.7-10.3); Carbon Dioxide 23.1 mmol/L (21.6-31.8); Chloride 110 mmol/L (96-109); Globulin 2.3 g/dL (1.6-3.3); Glucose 188 mg/dL (70-110); Potassium 3.6 mmol/L (3.5-5.5); Sodium 141 mmol/L (135-145); Total Bilirubin <0.2 mg/dL (0.3-1.2); Total Protein 5.6 g/dL (6.2-8.2)
--- NOTE | 2024-09-08 11:49 | P.DS ---
Providers Date of admission: 09/06/24 23:22 Expected date of discharge: 09/08/24 Attending physician: Patience Bravo MD [facility]: Discharge diagnosis; #Ketoacidosis. starvation likely, possible diabetic #Type 2 diabetes mellitus #Diabetic gastroparesis #Hypomagnesemia #Transaminases #Hypertension Hospital course; Patient is a 84-year-old female with PMH of hypertension, type 2 diabetes, history of DVT not on anticoagulation, sleep apnea, GERD, hyperlipidemia presented to the ER with multiple episodes of vomiting along with nausea x 4 we eks which seems to be getting progressively worse. Patient stated the last time when she was at home she was eating and felt like choking started having this intractable nausea. She immediately become concerned and came to the ER for further evaluation. Patient reports no similar episodes. Patient denies any episodes of hematemesis. Patient states that she has never experienced anything like this in the past .She denies dysphagia but does admit to have a poor appetite since last 4 weeks and have lost about 15 pounds. Patient reports that her last vomiting episode was prior to coming to the hospital about 7 hours ago. There has been no changes in her medications recently except for that there has been increase in her dosage of her Trulicity that she was using for weight loss. She has also been noticing certain side effects such as upset stomach since starting Trulicity. Patient states that she occasionally monitors her blood sugar level at home and have found that her recent sugar levels has been ranging around 300s. Patient denies any headaches, shortness of breath, chest pain dizziness, fever, chills, but does report generalized weakness. Patient otherwise reports that she is compliant with her medications. Laboratory data: WBC 6.2, hemoglobin 14.8, MCV 89.0, platelet count 261, blood gas; pH 7.25, pCO2 48, HCO3 21; sodium 137, potassium 3.7, chloride 104, bicarb 18, anion gap 14, BUN 22, creatinine 1.01, GFR 52, glucose 244, lactic acid 1.5, magnesium 1.2, total bilirubin 0.8, AST 41, ALT 26, qualitative acetone positive During hospital stay patient was treated for ketoacidosis due to combination of starvation and diabetes. Nausea and vomiting and improved. Also hypomagnesia improved during stay. Patient stable for discharge to home. She is to discontinue Jardiance. No new medications at this time. She is to follow-up with her PCP or academic internal medicine. Physical examination: Vital signs reviewed General: non toxic, no distress, appears at stated age, overweight Derm: no unusual rashes/lesions, warm Head: atraumatic, normocephalic, symmetric Eyes: EOMI, no lid lag, anicteric sclera, pupils equal round reactive to light ENT: Nose and ears atraumatic Neck: No cervical lymphadenopathy, trachea midline, supple Mouth: no lip lesion, mucus membranes moist Cardiovascular: S1S2 reg, no murmur, positive dorsalis pedis pulse bilateral, no edema Lungs: CTA bilateral, no rhonchi, no rales, no accessory muscle use Abdominal: soft, nontender to palpation, no guarding Ext: muscle strength 5 out of 5 in all 4 extremities grossly, no gross muscle atrophy, no contractures, Neuro: CN II-XI grossly intact, no gross focal neuro deficits Psych: Alert, oriented, appropriate affect A total of 38 minutes of time were spent preparing this complex discharge summary. Patient was discharged on 09/08/2024 at 934. I have seen and evaluated the patient today. Discussed with the resident and agree with the residents finding and plan as documented in the resident's note. Changes highlighted in blue font. Patient Condition at Discharge: Stable Plan - Discharge Summary Discharge Rx Participant: No New Discharge Prescriptions: Continue Diphenoxylate HCl/Atropine [Lomotil 2.5-0.025 mg Tablet] 2 tab PO QID PRN PRN Reason: Diarrhea metFORMIN HCL ER [Glucophage XR] 500 mg PO BID Lansoprazole [Prevacid] 30 mg PO DAILY Gabapentin [Neurontin] 100 mg PO TID Atorvastatin [Lipitor] 20 mg PO HS Ondansetron Odt [Zofran ODT] 4 mg PO Q8HR PRN PRN Reason: Nausea amLODIPine [Norvasc] 10 mg PO DAILY Insulin Glargine,Hum.rec.anlog [Lantus Solostar Pen] 22 units SQ DAILY Discontinued Empagliflozin [Jardiance] 25 mg PO DAILY Discharge Medication List Diphenoxylate HCl/Atropine [Lomotil 2.5-0.025 mg Tablet] 2 tab PO QID PRN 01/30/18 [History] metFORMIN HCL ER [Glucophage XR] 500 mg PO BID 11/15/22 [History] Ondansetron Odt [Zofran ODT] 4 mg PO Q8HR PRN 08/16/24 [History] Atorvastatin [Lipitor] 20 mg PO HS 09/07/24 [History] Gabapentin [Neurontin] 100 mg PO TID 09/07/24 [History] Insulin Glargine,Hum.rec.anlog [Lantus Solostar Pen] 22 units SQ DAILY 09/07/24 [History] Lansoprazole [Prevacid] 30 mg PO DAILY 09/07/24 [History] amLODIPine [Norvasc] 10 mg PO DAILY 09/07/24 [History] Follow up Appointment(s)/Referral(s): Rogelio Camp MD [STAFF PHYSICIAN] - 1 Week Nicolette Ramírez MD [Primary Care Provider] - 1-2 days [facility] [NON-STAFF] - 1 Week Patient Instructions/Handouts: Diabetic Gastroparesis (DC), Hypomagnesemia (DC) Activity/Diet/Wound Care/Special Instructions: Patient to followup with PCP or academic internal medicine clinic. Discharge Disposition: HOME SELF-CARE
[2024-09-08 12:20] LABS: Glucose,Whole Blood 202 mg/dL (70-110)
== END 2024-09-08 14:30 | disposition home or self-care (01) ==
LOC: EC 21:00 → 6NMEDSUR 23:22 → 1SOBS 09-07 10:32 → 6NMEDSUR 09-07 15:14
PROVIDERS: ADMIT Internal Medicine; ATTEND Internal Medicine
DX: E11.43 Type 2 diabetes mellitus with diabetic autonomic (poly)neuropathy (principal); K31.84 Gastroparesis; E83.42 Hypomagnesemia; R74.01 Elevation of levels of liver transaminase levels; E87.29 Other acidosis; K21.9 Gastro-esophageal reflux disease without esophagitis; I10 Essential (primary) hypertension; E78.5 Hyperlipidemia, unspecified; G47.30 Sleep apnea, unspecified; Z79.84 Long term (current) use of oral hypoglycemic drugs; Z79.899 Other long term (current) drug therapy; Z86.718 Personal history of other venous thrombosis and embolism; Z98.84 Bariatric surgery status; Z80.0 Family history of malignant neoplasm of digestive organs
CPT/HCPCS: 96376; 96361 ×2; 96365; 96366 ×2; 96375; 99285; 36415; 93005; 80053 ×3; 80048; 82150; 82803; 82009; 83605; 83690; 83735 ×2; 84100; 85025 ×3; 81003; 83036; 87636; G0378 ×4; J3475 ×2; J2470 ×2

== ENCOUNTER 2024-12-02 16:15 | Emergency (ER) | payer MEDICARE ==
--- NOTE | 2024-12-02 17:21 | ED ---
General Adult HPI - General Source: patient, family, RN notes reviewed Mode of arrival: wheelchair Limitations: no limitations - History of Present Illness Onset/Timin -: month(s) <Lucas Tierney - Last Filed: 12/02/24 19:05> <Sofie Gonzales - Last Filed: 12/02/24 20:33> - General Chief complaint: Recheck/Abnormal Lab/Rx Stated complaint: chills,unable to warm up Time Seen by Provider: 12/02/24 16:32 - History of Present Illness Initial comments: This is an 84-year-old female presenting with daughter via EMS for chills x 1 month. Patient states she was in [place] about 1 month ago when she was diagnosed with a UTI and treated with antibiotics. States she only has abnormal symptoms associated with UTI and is concerned she may have another UTI. Denies fever, chills, dysuria, hematuria, polyuria, chest pain, dyspnea, abdominal pain, N/V/D. (Lucas Tierney) - Related Data Home Medications Medication Instructions Recorded Confirmed Diphenoxylate HCl/Atropine 2 tab PO QID PRN 01/30/18 09/07/24 [Lomotil 2.5-0.025 mg Tablet] metFORMIN HCL ER [Glucophage XR] 500 mg PO BID 11/15/22 09/07/24 Ondansetron Odt [Zofran ODT] 4 mg PO Q8HR PRN 08/16/24 09/07/24 Atorvastatin [Lipitor] 20 mg PO HS 09/07/24 09/07/24 Gabapentin [Neurontin] 100 mg PO TID 09/07/24 09/07/24 Insulin Glargine,Hum.rec.anlog 22 units SQ DAILY 09/07/24 09/07/24 [Lantus Solostar Pen] Lansoprazole [Prevacid] 30 mg PO DAILY 09/07/24 09/07/24 amLODIPine [Norvasc] 10 mg PO DAILY 09/07/24 09/07/24 Allergies Allergy/AdvReac Type Severity Reaction Status Date / Time No Known Allergies Allergy Verified 12/02/24 16:54 Review of Systems ROS Other: All systems not noted in ROS Statement are negative. <Lucas Tierney - Last Filed: 12/02/24 19:05> ROS Other: All systems not noted in ROS Statement are negative. <AryaselamSofie machuca - Last Filed: 12/02/24 20:33> ROS Statement: Those systems with pertinent positive or pertinent negative responses have been documented in the HPI. Past Medical History Past Medical History: Diabetes Mellitus, GERD/Reflux, Hyperlipidemia, Hypertension, Sleep Apnea/CPAP/BIPAP Additional Past Medical History / Comment(s): type 2 diabetes History of Any Multi-Drug Resistant Organisms: None Reported Past Surgical History: Bariatric Surgery Additional Past Surgical History / Comment(s): bariatric sleeve procedure, rt rotator cuff, tummy tuck, cataract surgery 11/05/22 IVF filter. Past Anesthesia/Blood Transfusion Reactions: Postoperative Nausea & Vomiting (PONV) Past Psychological History: No Psychological Hx Reported Smoking Status: Never smoker Past Alcohol Use History: None Reported Past Drug Use History: Marijuana - Past Family History Brother(s) Additional Family Medical History / Comment(s): colon cancer. <Lucas Tierney - Last Filed: 12/02/24 19:05> General Exam Limitations: no limitations General appearance: alert, in no apparent distress Head exam: Present: atraumatic, normocephalic, normal inspection Eye exam: Present: normal appearance, PERRL, EOMI. Absent: scleral icterus, conjunctival injection, periorbital swelling ENT exam: Present: normal exam, mucous membranes moist Neck exam: Present: normal inspection. Absent: tenderness, meningismus, lymphadenopathy Respiratory exam: Present: normal lung sounds bilaterally. Absent: respiratory distress, wheezes, rales, rhonchi, stridor Cardiovascular Exam: Present: regular rate, normal rhythm, normal heart sounds. Absent: systolic murmur, diastolic murmur, rubs, gallop, clicks GI/Abdominal exam: Present: soft, normal bowel sounds. Absent: distended, tenderness, guarding, rebound, rigid Extremities exam: Present: normal inspection, full ROM, normal capillary refill. Absent: tenderness, pedal edema, joint swelling, calf tenderness Back exam: Present: normal inspection. Absent: CVA tenderness (R), CVA tenderness (L) Neurological exam: Present: alert, oriented X3, CN II-XII intact Psychiatric exam: Present: normal affect, normal mood Skin exam: Present: warm, dry, intact, normal color. Absent: rash <Lucas Tierney - Last Filed: 12/02/24 19:05> Course Vital Signs 12/02/24 16:50 Temperature 98.1 F Pulse Rate 72 Respiratory 17 Rate Blood Pressure 144/69 O2 Sat by Pulse 97 Oximetry Medical Decision Making <Lucas Tierney - Last Filed: 12/02/24 19:05> - Lab Data Result diagrams: 12/02/24 19:29 12/02/24 19:29 <Sofie Gonzales - Last Filed: 12/02/24 20:33> - Medical Decision Making Was pt. sent in by a medical professional or institution (, PA, ICE CARVER, urgent care, hospital, or intermediate...) When possible be specific @ -[No] Did you speak to anyone other than the patient for history (EMS, parent, family, police, friend...)? What history was obtained from this source @ -[No] Did you review nursing and triage notes (agree or disagree)? Why? @ -[I reviewed and agree with nursing and triage notes] Were old charts reviewed (outside hosp., previous admission, EMS record, old EKG, old radiological studies, urgent care reports/EKG's, intermediate records)? Report findings @ -[No old charts were reviewed] Differential Diagnosis (chest pain, altered mental status, abdominal pain women, abdominal pain men, vaginal bleeding, weakness, fever, dyspnea, syncope, headache, dizziness, GI bleed, back pain, seizure, CVA, palpatations, mental health, musculoskeletal)? @ -Differential Fever: Pneumonia, viral URI, endocarditis, myocarditis, pericarditis, otitis, sinusitis, peritonsillar Abscess, retropharyngeal Abscess, epiglottitis, peritonitis, appendicitis, Alejandra cystitis, diverticulitis, hepatitis, colitis, UTI, PID, TOA, pyelonephritis, prostatitis, epididymitis, meningitis, encephalitis, pulmonary embolism, CVA, thyroid storm, pancreatitis, adrenal crisis, cavernous sinus thrombosis, this is not meant to be an all-inclusive list. EKG interpreted by me (3pts min.). @ -Not done X-rays interpreted by me (1pt min.). @ -[None done] CT interpreted by me (1pt min.). @ -[None done] U/S interpreted by me (1pt. min.). @ -[None done] What testing was considered but not performed or refused? (CT, X-rays, U/S, labs)? Why? @ -Patient declined Cepheid test. What meds were considered but not given or refused? Why? @ -[None] Did you discuss the management of the patient with other professionals (professionals i.e. DrNohemy, PA, ICE CARVER, lab, RT, psych nurse, social services manager, client service manager, teacher, commissioned security officer, corrections caseworker)? Give summary @ -[No] Was smoking cessation discussed for >3mins.? @ -[No] Was critical care preformed (if so, how long)? @ -[No] Were there social determinants of health that impacted care today? How? (Homelessness, low income, unemployed, alcoholism, drug addiction, transportation, low edu. Level, literacy, decrease access to med. care, prison, rehab)? @ -[No] Was there de-escalation of care discussed even if they declined (Discuss DNR or withdrawal of care, Hospice)? DNR status @ -[No] What co-morbidities impacted this encounter? (DM, HTN, Smoking, COPD, CAD, Cancer, CVA, ARF, Chemo, Hep., AIDS, mental health diagnosis, sleep apnea, morbid obesity)? @ -[None] Was patient admitted / discharged? Hospital course, mention meds given and route, prescriptions, significant lab abnormalities, going to OR and other pertinent info. @ -[hospital course] Undiagnosed new problem with uncertain prognosis? @ -[No] Drug Therapy requiring intensive monitoring for toxicity (Heparin, Nitro, Insulin, Cardizem)? @ -[No] Were any procedures done? @ -[No] Diagnosis/symptom? @ -[default] Acute, or Chronic, or Acute on Chronic? @ -Acute Uncomplicated (without systemic symptoms) or Complicated (systemic symptoms)? @ -Complicated Side effects of treatment? @ -[No] Exacerbation, Progression, or Severe Exacerbation? @ -[No] Poses a threat to life or bodily function? How? (Chest pain, USA, OR, pneumonia, PE, COPD, DKA, ARF, appy, cholecystitis, CVA, Diverticulitis, Homicidal, Suicidal, threat to staff... and all critical care pts) @ -[No] (Lucas Tierney) - Lab Data Lab Results 12/02/24 12/02/24 12/02/24 Range/Units 17:55 19:29 19:29 WBC 6.30 (4.50-10.00) 10*3/uL RBC 5.37 H (4.10-5.20) 10*6/uL Hgb 15.9 H (12.0-15.0) g/dL Hct 46.4 H (37.2-46.3) % MCV 86.4 (80.0-97.0) fL MCH 29.6 (27.0-32.0) pg MCHC 34.3 (32.0-37.0) g/dL Plt Count 304 (140-440) 10*3/uL MPV 9.2 L (9.5-12.2) fL Immature Gran % (Auto) 0.5 % Neutrophils % 57.4 % Lymphocytes % 33.0 % Monocytes % 7.8 % Eosinophils % 0.8 % Basophils % 0.5 % Immature Gran # 0.03 (0.00-0.04) 10*3/uL Neutrophils # 3.62 (1.80-7.70) 10*3/uL Lymphocytes # 2.08 (0.90-5.00) 10*3/uL Monocytes # 0.49 (0.20-1.00) 10*3/uL Eosinophils # 0.05 (0.04-0.35) 10*3/uL Basophils # 0.03 (0.00-0.10) 10*3/uL Sodium 140 (137-145) mmol/L Potassium 4.0 (3.5-5.1) mmol/L Chloride 101 (98-107) mmol/L Carbon Dioxide 26 (22-30) mmol/L Anion Gap 13 mmol/L BUN 18 H (7-17) mg/dL Creatinine 1.06 H (0.52-1.04) mg/dL Est GFR (CKD-EPI)AfAm 56 (>60 ml/min/1.73 sqM) Est GFR (CKD-EPI)NonAf 49 (>60 ml/min/1.73 sqM) Glucose 144 H (74-99) mg/dL Calcium 10.1 (8.4-10.2) mg/dL Total Bilirubin 0.7 (0.2-1.3) mg/dL AST 24 (14-36) U/L ALT 20 (4-34) U/L Alkaline Phosphatase 143 H (38-126) U/L Total Protein 8.2 (6.3-8.2) g/dL Albumin 4.8 (3.5-5.0) g/dL Urine Color Colorless Urine Appearance Clear (Clear) Urine pH 5.0 (5.0-8.0) Ur Specific [place] 1.024 (1.001-1.035) Urine Protein Negative (Negative) Urine Glucose (UA) 4+ H (Negative) Urine Ketones Negative (Negative) Urine Blood Negative (Negative) Urine Nitrite Negative (Negative) Urine Bilirubin Negative (Negative) Urine Urobilinogen <2.0 (<2.0) mg/dL Ur Leukocyte Esterase Negative (Negative) Disposition <Lucas Tierney - Last Filed: 12/02/24 19:05> Is patient prescribed a controlled substance at d/c from ED?: No <Sofie Gonzales - Last Filed: 12/02/24 20:33> Clinical Impression: Chills (without fever) Disposition: HOME SELF-CARE Condition: Stable Additional Instructions: Please follow up with your primary care provider. Return to the emergency department for new or worsening symptoms. Referrals: None,Stated [REFERRING] - 1-2 days
[2024-12-02 19:00] LABS: Appearance,Urine Clear (Clear); Bilirubin,Urine Negative (Negative); Blood,Urine Negative (Negative); Color,Urine Colorless; Glucose,Urine (UA) 4+ (Negative); Ketones,Urine Negative (Negative); Leukocyte Esterase,Urine Negative (Negative); Nitrite,Urine Negative (Negative); Protein,Urine Negative (Negative); Specific Gravity,Urine 1.024 (1.001-1.035); Urobilinogen,Urine <2.0 mg/dL (<2.0)
[2024-12-02 19:37] LABS: Basophils # (A) 0.03 10*3/uL (0.00-0.10); Basophils % (A) 0.5 %; Eosinophils # (A) 0.05 10*3/uL (0.04-0.35); Eosinophils % (A) 0.8 %; HCT 46.4 % (37.2-46.3); HGB 15.9 g/dL (12.0-15.0); Lymphocytes # (A) 2.08 10*3/uL (0.90-5.00); MCH 29.6 pg (27.0-32.0); MCHC 34.3 g/dL (32.0-37.0); MCV 86.4 fL (80.0-97.0); Mean Platelet Volume 9.2 fL (9.5-12.2); Monocytes # (A) 0.49 10*3/uL (0.20-1.00); Monocytes % (A) 7.8 %; Neutrophils # (A) 3.62 10*3/uL (1.80-7.70); Neutrophils % (A) 57.4 %; Platelet Count 304 10*3/uL (140-440); RBC 5.37 10*6/uL (4.10-5.20)
[2024-12-02 19:53] LABS: ALT 20 U/L (4-34); AST 24 U/L (14-36); African American GFR (CKD) 56 (>60 ml/min/1.73 sqM); Albumin 4.8 g/dL (3.5-5.0); Alkaline Phosphatase 143 U/L (38-126); Anion Gap 13 mmol/L; Blood Urea Nitrogen 18 mg/dL (7-17); Calcium 10.1 mg/dL (8.4-10.2); Carbon Dioxide 26 mmol/L (22-30); Chloride 101 mmol/L (98-107); Glucose 144 mg/dL (74-99); Non-African American GFR(CKD) 49 (>60 ml/min/1.73 sqM); Sodium 140 mmol/L (137-145); Total Bilirubin 0.7 mg/dL (0.2-1.3); Total Protein 8.2 g/dL (6.3-8.2)
[2024-12-02 20:38] VITALS: BP 145/82
[2024-12-02 21:10] VITALS: PULSE 86; RESP 20; TEMP 98.2
== END 2024-12-02 21:20 | disposition home or self-care (01) ==
LOC: EC 16:15
DX: R68.83 Chills (without fever) (principal)
CPT/HCPCS: 36415; 80053; 81003; 85025; 99283

== ENCOUNTER → 2024-12-17 | Outpatient (CLI) | payer MEDICARE ==
[2024-12-17 18:41] LABS: Basophils # (A) 0.02 X 10*3/uL (0.00-0.10); Basophils % (A) 0.4 %; Eosinophils # (A) 0.06 X 10*3/uL (0.04-0.35); Eosinophils % (A) 1.1 %; HCT 44.9 % (37.2-46.3); Lymphocytes # (A) 1.55 X 10*3/uL (0.90-5.00); Lymphocytes % (A) 27.9 %; MCH 28.3 pg (27.0-32.0); MCHC 31.2 g/dL (32.0-37.0); MCV 90.7 FL (80.0-97.0); Mean Platelet Volume 9.9 FL (9.5-12.2); Monocytes # (A) 0.33 X 10*3/uL (0.20-1.00); Monocytes % (A) 5.9 %; NRBC Per 100 WBC 0 X 10*3/uL (0.00-0.01); Neutrophils # (A) 3.58 X 10*3/uL (1.80-7.70); Neutrophils % (A) 64.3 %; Platelet Count 294 X 10*3/uL (140-440); RBC 4.95 X 10*6/uL (4.10-5.20); WBC 5.56 X 10*3/uL (4.50-10.00)
[2024-12-17 18:54] LABS: Protein, Total 7.2 g/dL (6.2-8.2)
[2024-12-17 19:16] LABS: Ferritin 17.2 ng/mL (10.0-291.0); Iron 75 UG/DL (50-170); LDL Cholesterol,Calculated 42.4 mg/dL (0.0-131.0); Magnesium 1.8 mg/dL (1.5-2.4); Phosphorus 3.8 mg/dL (2.4-5.1); Total Iron Binding Capacity 431 UG/DL (228-460)
[2024-12-17 19:35] LABS: BUN/Creat Ratio 21.73 Ratio (12.00-20.00); Blood Urea Nitrogen 23.9 mg/dL (9.0-27.0); Carbon Dioxide 24.9 mmol/L (21.6-31.8); Chloride 105 mmol/L (96-109); Glucose 160 mg/dL (70-110); Potassium 4.3 mmol/L (3.5-5.5); Sodium 143 mmol/L (135-145)
[2024-12-17 19:36] LABS: ALT 19 U/L (8-44); AST 18 U/L (13-35); Albumin 4.3 g/dL (3.8-4.9); Albumin/Globulin Ratio 1.59 Ratio (1.60-3.17); Alkaline Phosphatase 106 U/L (41-126); Calcium 9.8 mg/dL (8.7-10.3); Globulin 2.7 g/dL (1.6-3.3); Total Bilirubin 0.4 mg/dL (0.3-1.2)
== END | disposition home or self-care (01) ==
LOC: LABWHC1 11:37
PROVIDERS: ATTEND Internal Medicine
DX: I10 Essential (primary) hypertension (principal); E11.21 Type 2 diabetes mellitus with diabetic nephropathy; Z98.84 Bariatric surgery status
CPT/HCPCS: 36415; 80053; 80061; 82607; 82728; 82746; 83036; 83540; 83550; 83735; 84100; 84165; 84443; 85025; 86334

== ENCOUNTER → 2024-12-17 | Outpatient (CLI) | payer MEDICARE ==
--- NOTE | 2024-12-17 10:19 | XR ---
EXAMINATION TYPE: XR chest 2V DATE OF EXAM: 12/17/2024 10:04 AM COMPARISON: 08/16/2024 CLINICAL INDICATION: Female, 84 years old with history of R91.1 SPN, TECHNIQUE: XR chest 2V view(s) obtained. FINDINGS: The heart size is normal. The pulmonary vasculature is normal. The lungs are clear. IMPRESSION: 1. No acute pulmonary process. [facility] Workman, Workstation: [facility], 12/17/2024 10:17 AM
== END | disposition home or self-care (01) ==
LOC: RADXRMAIN 09:52
PROVIDERS: ATTEND Internal Medicine
DX: R68.83 Chills (without fever) (principal)
CPT/HCPCS: 71046

== ENCOUNTER → 2025-01-03 | Outpatient (CLI) | payer MEDICARE ==
--- NOTE | 2025-01-03 10:01 | US ---
EXAMINATION TYPE: US abdomen complete DATE OF EXAM: 01/03/2025 COMPARISON: CT 2023 CLINICAL INDICATION: Female, 84 years old with history of R74.8 ABNORMAL LEVELS OF OTHER SERUM ENZYME S; TECHNIQUE: Grayscale and color Doppler imaging of the abdomen was performed. FINDINGS: EXAM MEASUREMENTS: Liver Length: 13.3 cm CBD: 0.6 cm Spleen: 8.8 cm Right Kidney: 8.0 x 5.0 x 3.6 cm Left Kidney: 7.9 x 4.5 x 3.5 cm Pancreas: visualized portions wnl, limited by overlying midline bowel gas Liver: Increased echotexture. No suspicious masses or dilated ducts. Gallbladder: surgically absent Evidence for sonographic Morelos's sign: no CBD: visualized portions wnl, limited by overlying bowel gas Spleen: wnl Right Kidney: measures small in size Left Kidney: measures small in size, 3.1 x 3.1 x 2.5cm hypoechoic area lateral mid pole Upper IVC: wnl Abd Aorta: wnl IMPRESSION: 1. No evidence for acute process. 2. Hepatocellular disease commonly relating to hepatic steatosis. 3. Left renal cyst, similar to prior CT 05/29/2024. [facility], , 01/03/2025 9:59 AM
== END | disposition home or self-care (01) ==
LOC: RADUSWWP 09:01
PROVIDERS: ATTEND Internal Medicine
DX: K76.0 Fatty (change of) liver, not elsewhere classified (principal); R74.8 Abnormal levels of other serum enzymes; K76.89 Other specified diseases of liver; N28.1 Cyst of kidney, acquired
CPT/HCPCS: 76700